=== PATIENT | female | born 1980 | race Caucasian/White ===

== ENCOUNTER 2020-06-22 13:29 | Outpatient (CLI) | payer MEDICARE, MEDICAID, SELFPAY ==
--- NOTE | 2020-06-22 14:30 | MM_ITS ---
WS: [id number] BILATERAL SCREENING DIGITAL MAMMOGRAM WITH CAD HISTORY: breast cancer screening COMPARISON: 08/13/2018 and 01/23/2009 Bilateral CC and MLO views submitted. Computer aided detection analyzed. Breast composition: There are scattered areas of fibroglandular density. No suspicious masses, microc alcifications or architectural distortion. Benign calcifications in each breast. MM/[id number] IMPRESSION: BI-RADS: 2-Benign FOLLOW UP: 1 Year Follow-up
== END 2020-06-22 13:30 | disposition home or self-care (01) ==
LOC: RADSHAW 13:35
PROVIDERS: PCP Nurse Practitioner Family; Visit Provider Nurse Practitioner Women's Health
DX: Z12.31 Encounter for screening mammogram for malignant neoplasm of breast (principal)
CPT/HCPCS: 77067

== ENCOUNTER 2020-10-29 20:00 | Outpatient (CLI) | payer MEDICARE, MEDICAID, SELFPAY | END 2020-10-29 20:01 | disposition home or self-care (01) | LOC: SLEEP 10-30 08:19 | PROVIDERS: PCP Nurse Practitioner Family; Visit Provider Nurse Practitioner Family | DX: G47.33 Obstructive sleep apnea (adult) (pediatric) (principal) | CPT/HCPCS: 95810 ==

== ENCOUNTER 2020-11-30 20:00 | Outpatient (CLI) | payer MEDICARE, MEDICAID, SELFPAY | END 2020-11-30 20:01 | disposition home or self-care (01) | LOC: SLEEP 12-01 08:24 | PROVIDERS: PCP Nurse Practitioner Family; Visit Provider Nurse Practitioner Family | DX: G47.33 Obstructive sleep apnea (adult) (pediatric) (principal) | CPT/HCPCS: 95811 ==

== ENCOUNTER 2021-03-23 16:29 | Outpatient (CLI) | payer MEDICARE, MEDICAID, SELFPAY | END 2021-03-23 16:30 | disposition home or self-care (01) | LOC: LAB 16:40 | PROVIDERS: PCP Family Medicine; Visit Provider Family Medicine | DX: G47.33 Obstructive sleep apnea (adult) (pediatric) (principal); E66.01 Morbid (severe) obesity due to excess calories; E11.42 Type 2 diabetes mellitus with diabetic polyneuropathy; K21.00 Gastro-esophageal reflux disease with esophagitis, without bleeding; E78.00 Pure hypercholesterolemia, unspecified | CPT/HCPCS: 36415; 80053; 80061; 83036; 84443; 85025 ==

== ENCOUNTER → 2021-04-02 12:59 | Outpatient (BNVA) | payer MEDICARE, MEDICAID, SELFPAY | PROVIDERS: PCP Family Medicine; Visit Provider Obstetrics & Gynecology | DX: Z20.822 Contact with and (suspected) exposure to COVID-19 (principal); N81.6 Rectocele; N81.10 Cystocele, unspecified | CPT/HCPCS: 87635 ==

== ENCOUNTER 2021-04-07 12:22 | Observation (INO) | payer MEDICARE, MEDICAID, SELFPAY ==
[2021-04-05 10:57] VITALS: BMI 49.0
[2021-04-05 11:32] LABS: Add Urine Microscopic? NO; Charge for UA Resulting for Rev
[2021-04-05 11:41] LABS: Basophils % 0.4 %; Eosinophils # 0.2 10^3/uL (0.0-0.8); Eosinophils % 1.8 %; Hematocrit 43.2 % (37.0-47.0); Hemoglobin 13.5 g/dL (11.5-15.3); Lymphocytes # 4.3 10^3/uL (0.8-4.8); Lymphocytes % 39.5 %; Mean Corpuscular HGB Conc 31.3 g/dL (30.0-36.0); Mean Corpuscular Hemoglobin 29.5 pg (28.0-34.0); Mean Corpuscular Volume 94.5 fL (81-99); Mean Platelet Volume 10.6 fL (7.4-10.4); Monocytes # 0.6 10^3/uL (0.2-0.9); Monocytes % 5.6 %; Neutrophils # 5.76 10^3/uL (1.8-7.7); Neutrophils % 52.4 %; Nucleated Red Blood Cells % 0 %; Platelet Count 375 10^3/cmm (130-400); Red Blood Count 4.57 10^6/uL (4.1-5.3); Red Cell Distribution Width 13.2 % (12.1-15.1)
--- NOTE | 2021-04-05 12:03 | P.ANESASSM_ITS ---
Pre-Anesthetic Assessment Pre-Anesthetic Assessment: Height/Weight: Height 1.57 m Weight 121.563 kg Preop Diagnosis: Counseled regarding cystocele stage II, rectocele stage III, urinary incont Proposed Procedure: Operation Date: 04/07/21 09:30 Proposed Procedures p Anterior Repair Anterior Colporrhaphy [id number] N81.10 N81.6(Not Applicable) - Ravinder Salazar MD s Posterior Repair Posterior Colporrhaphy(Not Applicable) - Ravinder Salazar MD s Midurethral single incision sling(Not Applicable) - Ravinder Salazar MD s Sacrospinous Ligament fixation(Not Applicable) - Ravinder Salazar MD Was Beta Jaquan taken within 24 hours: N/A Was Clonidine taken within 24 hours: N/A Social: Social History: Tobacco and No alcohol Exam: Pre-Anes Outpt Exam: alert, oriented x 3 and regular rate & rhythm Airway: Submandibular: WNL Cervical ROM: WNL MP: 2 Dentition: False Pulmonary: Pulmonary: COPD and Sleep apnea CV/HEM: CV/HEM: HTN GI: GI: GERD Metabolic: Metabolic: Hyperlipidemia and Morbid obesity Anesthetic Plan: ASA status: 3 Anesthesia: General Risk of > 500 ml blood loss (7ml/kg in children): No PFSH Anesthesia PFSH: Medical History Asthma Chronic constipation COPD (chronic obstructive pulmonary disease) Family history of breast cancer in first degree relative GERD (gastroesophageal reflux disease) Hypercholesteremia Hypertension Menopausal symptoms 2011--started on estradiol by another provider 12/2017--this was my first visit with her and she was on estradiol 1 mg; increase to 1.5 mg 05/02/2019--persistent symptoms--increased estradiol to 2 mg Impression: - Because she is having continued symptoms we will increase her estradiol to 2 mg. We did have a discussion that several of her current health problems and medications could also be contributing to some of her hot flashes and night sweats and we may never get full resolution in her symptoms. We also discussed that there are different estrogen's available and while one-person may not respond to one type of estrogen, they may improve with another type. We will increase her to 2 mg and provide her with a 1 month prescription--staff will call her in 3 weeks for an update and further management pending that discussion. Mixed incontinence Morbid obesity No pertinent past medical history neghx: dvt/pe Type 2 diabetes mellitus Surgical History History of appendectomy (~02/18/10) Hx of section Hx of dilation and curettage of uterus Hx of hysterectomy (~09/22/11) CARLYLE/BSO for irregular menses. [facility] [place] Benign pathology Hx of tonsillectomy Hx of tubal ligation Family History Mother Diabetes Breast cancer uncertain age of dx Father Diabetes Sister Diabetes Uterine cancer Grandmother Hypertension Maternal Hypercholesteremia Maternal Other Heart disease Thyroid disease Denies family history of Colon cancer Ovarian cancer Clotting disorder Bleeding disorder Stroke Social History Smoking and tobacco status: never smoked Second hand smoke exposure: No Alcohol intake: never Desire information about alcohol rehabilitation?: No Desire information about substance/drug rehabilitation?: No Data Anesthesia CBC & Chem 7: 04/05/21 11:26 04/05/21 11:26 Other Labs: Laboratory Results - last 48 hr 04/05/21 11:26 WBC 11.0 H RBC 4.57 Hgb 13.5 Hct 43.2 MCV 94.5 MCH 29.5 MCHC 31.3 RDW 13.2 Plt Count 375 MPV 10.6 H Neut % (Auto) 52.4 Lymph % (Auto) 39.5 Wood % (Auto) 5.6 Eos % (Auto) 1.8 Baso % (Auto) 0.4 Neut # (Auto) 5.76 Lymph # (Auto) 4.3 Wood # (Auto) 0.6 Eos # (Auto) 0.2 Baso # (Auto) 0.0 Nucleated RBC % (auto) 0 Nucleated RBCs # 0.0 Cardiac Studies: No Data to Display
[2021-04-05 12:20] LABS: Alanine Aminotransferase 36 U/L (0-33); Alkaline Phosphatase 101 IU/L (35-105); Anion Gap 17.8 (5-19); Aspartate Amino Transferase 26 U/L (0-32); Blood Urea Nitrogen 10 mg/dL (6-20); Calcium 8.9 mg/dL (8.5-10.5); Carbon Dioxide 24 mmol/L (22-29); Chloride 105 mmol/L (98-107); Glucose 81 mg/dL (65-115); Osmolality Calculated 294 mOsm/kg (285-295); Potassium 3.8 mmol/L (3.5-5.1); Sodium 143 mmol/L (136-145); Total Bilirubin 0.4 mg/dL (0.15-1.2)
[2021-04-05 13:23] LABS: Bilirubin Urine Neg (Negative); Blood Urine Neg (Negative); Glucose Urine UA Norm (Normal); Ketones Urine Negative (Negative); Leukocyte Esterase Urine Negative (Negative); Nitrate Urine Negative (Negative); Protein Urine Neg (Negative); Urine Appearance Clear (CLEAR); Urine Color Yellow (Yellow); Urobilinogen Urine Norm (Negative); pH Urine 6.5 (5-7)
[2021-04-07] VITALS (15 sets, daily range): BP systolic 118–146; BP diastolic 60–91; PULSE 62–93; RESP 14–18; TEMP 36.6–37.1; O2SAT 90–100
[2021-04-07] MEDS: scopolamine 1.5 Patch 1 PATCH TRANSDERMA (08:20)
[2021-04-07] MEDS: sodium chloride 0.9% 500 ML IV (08:35)
--- NOTE | 2021-04-07 08:37 | ANES.PAUD2 ---
Pre-Anesthetic Update Pre-Anesthetic Assessment: Date of Surgery/Procedure: 04/07/21 Preop Diagnosis: Counseled regarding cystocele stage II, rectocele stage III, urinary incont Proposed Procedure: Operation Date: 04/07/21 09:30 Proposed Procedures p Anterior Repair Anterior Colporrhaphy [id number] N81.10 N81.6(Not Applicable) - Ravinder Salazar MD s Posterior Repair Posterior Colporrhaphy(Not Applicable) - Ravinder Salazar MD s Midurethral single incision sling(Not Applicable) - Ravinder Salazar MD s Sacrospinous Ligament fixation(Not Applicable) - Ravinder Salazar MD Any changes to Pre-Anesthetic Assessment?: No Last Intake: Intake Last Liquid Date 04/06/21 Last Liquid Time 19:00 Last Solid Date 04/06/21 Last Solid Time 19:00 Labs Last 48hrs: Laboratory Results - last 48 hr 04/05/21 04/05/21 04/05/21 11:04 11:26 11:26 WBC 11.0 H RBC 4.57 Hgb 13.5 Hct 43.2 MCV 94.5 MCH 29.5 MCHC 31.3 RDW 13.2 Plt Count 375 MPV 10.6 H Neut % (Auto) 52.4 Lymph % (Auto) 39.5 [place] % (Auto) 5.6 Eos % (Auto) 1.8 Baso % (Auto) 0.4 Neut # (Auto) 5.76 Lymph # (Auto) 4.3 [place] # (Auto) 0.6 Eos # (Auto) 0.2 Baso # (Auto) 0.0 Nucleated RBC % (a uto) 0 Nucleated RBCs # 0.0 Sodium Potassium Chloride Carbon Dioxide Anion Gap BUN Creatinine GFR Calculation Glucose Calculated Osmolal ity Calcium Total Bilirubin AST ALT Alkaline Phosphata se Total Protein Albumin Globulin Urine Color Yellow Urine Appearance Clear Urine pH 6.5 Ur Specific Gravit y 1.010 Urine Protein Neg Urine Glucose (UA) Norm Urine Ketones Negative Urine Blood Neg Urine Nitrate Negative Urine Bilirubin Neg Urine Urobilinogen Norm Ur Leukocyte Jen ase Negative Blood Type O Positive Rho(D) Type Positive / 4+ Antibody Screen Negative 04/05/21 11:26 WBC RBC Hgb Hct MCV MCH MCHC RDW Plt Count MPV Neut % (Auto) Lymph % (Auto) [place] % (Auto) Eos % (Auto) Baso % (Auto) Neut # (Auto) Lymph # (Auto) [place] # (Auto) Eos # (Auto) Baso # (Auto) Nucleated RBC % (a uto) Nucleated RBCs # Sodium 143 Potassium 3.8 Chloride 105 Carbon Dioxide 24 Anion Gap 17.8 BUN 10 Creatinine 0.4 L GFR Calculation 175.0 H Glucose 81 Calculated Osmolal ity 294 Calcium 8.9 Total Bilirubin 0.4 AST 26 ALT 36 H Alkaline Phosphata se 101 Total Protein 7.0 Albumin 4.0 Globulin 3.0 Urine Color Urine Appearance Urine pH Ur Specific Gravit y Urine Protein Urine Glucose (UA) Urine Ketones Urine Blood Urine Nitrate Urine Bilirubin Urine Urobilinogen Ur Leukocyte Jen ase Blood Type Rho(D) Type Antibody Screen Vitals: Pulse Rhythm 04/07/21 08:20 Pulse Strength 3+ Normal 04/07/21 08:20 Oxygen Delivery Me thod 04/07/21 08:20 Exam: Pre-Anes Outpt Exam: alert, oriented x 3, clear to auscultation bilaterally and regular rate & rhythm Cardiac Studies: No Data to Display
--- NOTE | 2021-04-07 08:54 | W.PM.OPSUD ---
Surgery/Procedure H&P Update DATE OF PROCEDURE: April 07, 2021 DATE H&P PERFORMED: 04/05/21 H&P UPDATE INFORMATION: I have reviewed H&P completed within last 30 days, I have examined patient prior to procedure and No changes to prior documentation PREOP DIAGNOSIS: Counseled regarding cystocele stage II, rectocele stage III, urinary incont PLANNED PROCEDURE: Operation Date: 04/07/21 09:30 Proposed Procedures p Anterior Repair Anterior Colporrhaphy [id number] N81.10 N81.6(Not Applicable) - Ravinder Salazar MD s Posterior Repair Posterior Colporrhaphy(Not Applicable) - Ravinder Salazar MD s Midurethral single incision sling(Not Applicable) - Ravinder Salazar MD s Sacrospinous Ligament fixation(Not Applicable) - Ravinder Salazar MD
[2021-04-07] MEDS: enoxaparin 30 mg/0.3 mL Syringe SUBCUT (09:00)
[2021-04-07] MEDS: sodium chloride 0.9% 1,000 ML 30 ML IV (09:20)
[2021-04-07] MEDS: vancomycin 1,000 MG in sodium chloride 0.9% 250 ML 250 MG IV (09:25)
[2021-04-07] MEDS: estrogens Conjugated Cream 30 gm 1 APPLIC VAGINAL (09:59)
--- NOTE | 2021-04-07 11:19 | PM.OP ---
Operative Report Date of procedure: April 07, 2021 Pre-op Diagnosis: Counseled regarding cystocele stage II, rectocele stage III, urinary incont Post-op diagnosis: same Procedure Done: Anterior colporrhaphy augmented with allograft Single incision mid urethral sling. Posteriror colporrhapgy Cystoscopy Implants: Altis single incision sling (coloplast) Surgeon: Ravinder Salazar MD Anesthesia: General Estimated blood loss (mL): 800 IV fluids (mL): 700 Urine output (mL): 200 Complications: bleeding Condition: stable Disposition: PACU Procedure: After obtaining informed consent, the patient was taken to the operating room and placed in the supine position, given general anesthesia, and prepped and draped in sterile fashion. The abdomen, vulva and vagina were prepped and draped in a sterile manner. A time out procedure was performed. The anterior vaginal mucosa beneath the midurethra was infiltrated with 0.5% Marcaine with epinephrine. A vertical midline incision was made beneath the midurethra, nearly 1.5 cm length. Careful submucosal dissection was performed bilaterally up to the interior portion of the inferior pubic ramus. The insertion of adductor longus tendon on the patient?s pubic ramus was identified as reference land winifred. Palpated the notch along the internal edge of ischiopubic ramus where the adductor longus tendon and the inferior pubic ramus meet. The Altis single incision sling (SIS) was selected. With thin porcine graft the mesh of the sling was lined anteriorly and posteriorly with the graft. Then the needle of the SIS inserted aiming at the location of this notch. One of the integrated self-fixating tips place onto the needle by sliding it over the end of the needle. The needle/sling assembly was inserted toward the location of identified reference notch making sure that the flat of the handle is perpendicular to the desired path. The needle was tracked along the posterior surface of the ischiopubic ramus until the midline winifred on the mesh is approximately at the midline position under the urethra. The needle was removed and the same was repeated on the contralateral side until the appropriate sling tension under the urethra was achieved ensuring that the mesh lays flat. The needle was removed and vaginal incision was closed in a running interlocking fashion with 2-0 Vicryl. The vaginal mucosa was then injected in the midline with normal saline. The vaginal mucosa was scored in the midline with the Bovie approximately 1 cm medial to the urethral meatus to 1 cm distal to the vaginal cuff. This vaginal mucosa was then undermined and then incised in the midline with the Metzenbaum scissors. The lateral aspects of the vaginal mucosa were then grasped with the Allis clamps and the vaginal mucosa was then dissected off the underlying fascia with the Metzenbaum scissors. Again, there was noted to be quite a bit of oozing at the incision, which was controlled with cautery. After adequate dissection was performed, bilaterally. An ACell MatriStem Pelvic Floor Matrix is modified at time of application to fit spacea, 4 x 4 cm piece . MatriStem PFM placed in front of cystocele ready to be implanted with the Basement Membrane facing the vagina mucosa. Suture is placed at distal end of graft and placed towards vaginal cuff. Final suture is placed on proximal portion of the graft to complete the placement overlying the bladder. Then Interrupted vertical mattress sutures of 0 Vicryl were used to elevate the cystocele superiorly. The excessive vaginal mucosa was then trimmed with the Metzenbaum scissors and the vaginal mucosa was then reapproximated in the running interlocking fashion with 2-0 Vicryl. Posterior colpoperineorrhaphy was performed with Allis clamps to grasp hymenal caruncles to allow 2-3 fingerbreadths caliber; infiltrated with 1% Lidocaine with epinephrine before triangular incision to excise fibrotic subdermal rectovaginal tissue from old perineal laceration. Fascia dissected off towards vaginal cuff and deemed weakened and thinned-out in midline; colporrhaphy performed with interrupted mattress 0-Vicryl sutures towards perineal body after a separate crown stitch with 0-Vicryl performed. The patient was given IV indigo carmine. The field irrigated; hemostasis secured before vaginal incision closed running-locked with 3-0 Vicryl. Then the Hale catheter was removed and cystoscope was inserted. The bladder was filled with sterile water. Complete evaluation of the bladder mucosa was performed noting no lacerations, dimpling, tears, bleeding of the mucosa or muscular layers. Both ureteral orifices were identified. Prompt excretion of urine from both ureteral orifices was noted. Cystoscope was withdrawn. The Hale catheter was replaced. Excellent hemostasis was obtained. Premarin-soaked vaginal pack left in placed overnight as postoperative support for the vaginal tissues after graft placement and closure of vaginal incisions. Sponge, lap, needle, and instrument counts were correct times three. The patient was taken to the recovery room, awake and in stable condition. This documentation was created by [employer] business project manager software (known for inherent business project manager error). Every effort was made to assure accuracy of business project manager. Any obvious errors or omissions should be clarified with the author of the document.
[2021-04-07] MEDS: ketorolac 30 mg/mL INJ IVP ×2 (13:03→18:25)
[2021-04-07] MEDS: dextrose 5%-lactated ringers 1,000 ML 125 ML IV ×2 (13:03→21:49)
[2021-04-07] MEDS: HYDROcodone-acetaminophen 5-325 mg Tablet PO (13:04)
--- NOTE | 2021-04-07 15:38 | ANE.PACU2 ---
Inpatient post-anesthesia follow up: Airway intact: Yes Vital signs: Temperature 97.8 F Pulse Rate 67 Respiratory Rate 16 Blood Pressure 124/85 Pulse Oximetry 97 Oxygen Delivery Me thod Room Air Oxygen Flow Rate 6 Fraction of Inspir ed Oxygen Hydration adequate: Yes Nausea and vomiting: No Pain level: 2 Mental status: Baseline
--- NOTE | 2021-04-07 16:50 | PC.NURSE ---
Nurse entered room to draw hemagram. Upon entering the room, patient was making eye contact with nurse. Nurse explained that her doctor has ordered a blood draw to check her levels since the surgery. She nodded. When this nurse got around the other side of the bed, the patient had dozed back off. Nurse went to remove the blood pressure cuff, patient jumped and made a fist and swung it towards the nurse, but did not make contact. Nurse apologized for startling the patient and the patient yelled that the nurse snuck up on her, that she is hard of hearing and reads lips. Nurse again apologized for startling her and again explained the blood draw and reasoning for it.
[2021-04-07 17:25] LABS: Hematocrit 37.4 % (37.0-47.0); Hemoglobin 11.9 g/dL (11.5-15.3); Mean Corpuscular HGB Conc 31.8 g/dL (30.0-36.0); Mean Corpuscular Hemoglobin 29.8 pg (28.0-34.0); Mean Corpuscular Volume 93.7 fL (81-99); Mean Platelet Volume 10.9 fL (7.4-10.4); Platelet Count 305 10^3/cmm (130-400); Red Blood Count 3.99 10^6/uL (4.1-5.3); Red Cell Distribution Width 13.1 % (12.1-15.1); White Blood Count 19.4 10^3/uL (4.0-10.0)
[2021-04-07] MEDS: docusate sodium 100 mg Capsule PO (18:04)
[2021-04-07] MEDS: ferrous sulfate EC 325 mg Tablet PO (18:05)
--- NOTE | 2021-04-07 18:10 | PC.NURSE ---
Nurse was in room, pt stated her mother wanted to speak to the nurse. Pt handed her phone to this nurse with pt's mother on FaceTime. Pt's mother asked if we have a way for the pt to charge her phone. Nurse asked if pt has a public health staff nurse. Pt stated that her public health staff nurse wont reach the bed from the plug ins. Nurse pointed out all the plugins that are closest to the bed. Pt's visitor said he would plug the public health staff nurse in. Then pt's mother asked why her daughter is bleeding so badly. Nurse stated that some bleeding is expected after this type of surgery and nurse is preparing to reassess bleeding and change her pads.
--- NOTE | 2021-04-07 19:00 | PC.NURSE ---
Mother of the patient called while this nurse was in the room doing bedside shift report. Mother requested to speak to the RN. This nurse spoke to mother on the phone and stated I would call her back after I received report on my other patients. This nurse called the mother back and the mother stated Suni has had 2 different surgeries today, has had so many complaints. What kind of staff do you have there? I am in [place] and I will come down there. What is their proble? This nurse stated to the mother I am just coming onto shift at this time, and I cannot attest for the care the pt has received before this shift. I can attest the nurses up here are very good at their jobs and good at what they do. The mother stated The nurses have only checked on her a couple of times since she has been up there and my daughter is hurting and wants pain medication. The nurse came in and said 'it will be 10 minutes before you can have anything.' This nurse stated to the mother As nurses, we are not in control of the orders written by the doctors and we can only carry out what is written as orders for us to follow. As for her being in pain, when she rates her pain 10 out of 10 and she is sleeping, it is hard for the nursing staff to give more pain medication because when the pt is sleeping her pain cannot be 10 out of 10. The mother stated Ok i can explain that to her better. So she told the nurse her IV was hurting and wet and the nurse said that it was because she was not watching what she was doing and it would be fine. This nurse reported IV would be assessed. The mother stated she is also having extremely heavy bleeding. So much that her checked and there was blood everywhere. This nurse reported to the mother in report 2 spots of bleeding was noted on the pad approximately the size of a golf ball and one on the chux approximately the size of an orange and this is normal bleeding. A blood draw was performed this afternoon and the doctor is aware of the results and the results still say she is in normal range. 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 This nurse stated it would be looked in to.
--- NOTE | 2021-04-07 19:06 | PC.NURSE ---
vaginal bleeding Pt stated she feels like she is having heavy vaginal bleeding. Erica pad changed and 2 golf ball sized areas of blood noted on erica pad, area of blood on chux pad approximately the size of an orange. Pad had not been changed since pt arrived to the floor. Pt reassured that this amount of vaginal bleeding is an expected finding after this type of surgery.
--- NOTE | 2021-04-07 20:18 | PC.NURSE ---
This nurse entered pt's room after ambulating 1 round around the ob floor. The pt was in the chair when this nurse entered the room. The pt stated she was very tired and weak after the walk. This nurse asked the pt if she thought she could get up to the bathroom to change her erica pad. The pt stated yes. This nurse assisted pt up and when entering the bathroom door way pt started getting weak and knees were buckling. This nurse stated for pt to sit on the toilet. Pt did not respond. This nurse stepped forward and pulled the emergency light. This nurse again stated to pt to step forward to the toilet. The pt made 1 attempt to step toward toilet and this nurse held pt up from falling. Uri Driver RN entered room and assisted pt to toilet. Pt sat on toilet for about 10 seconds and stated that has never happened to me before. Can I have something to eat? This nurse stated we would discuss that when pt is back to bed. Pt verbalized understanding. Erica pad replaced and pt assisted up from toilet x2 nurses. Pt ambulating back to bed and at door way pt became weak again and stated i'm going to pass out. This nurse instructed the visitors to bring the recliner closer to the pt. When the visitor was moving the recliner, the pt began to step forward toward recliner. This nurse stated for pt to sit in the chair. Pt asked which way? this nurse stated i don't care just sit down. Pt was feeling better after sitting.
[2021-04-08] MEDS: ketorolac 30 mg/mL INJ IVP (00:30)
[2021-04-08 05:38] VITALS: BP 121/78; PULSE 82; RESP 16; TEMP 36.6
[2021-04-08 05:39] LABS: Hematocrit 37.6 % (37.0-47.0); Hemoglobin 12.1 g/dL (11.5-15.3); Mean Corpuscular HGB Conc 32.2 g/dL (30.0-36.0); Mean Corpuscular Hemoglobin 30.2 pg (28.0-34.0); Mean Corpuscular Volume 93.8 fL (81-99); Platelet Count 329 10^3/cmm (130-400); Red Blood Count 4.01 10^6/uL (4.1-5.3); Red Cell Distribution Width 13.2 % (12.1-15.1); White Blood Count 18.6 10^3/uL (4.0-10.0)
[2021-04-08] MEDS: atorvastatin 40 mg Tablet 20 MG PO (08:49)
[2021-04-08] MEDS: HYDROcodone-acetaminophen 5-325 mg Tablet PO (08:49)
[2021-04-08] MEDS: ibuprofen 800 mg tablet PO (08:50)
[2021-04-08] MEDS: pantoprazole DR 40 mg Tablet PO (08:50)
[2021-04-08] MEDS: ferrous sulfate EC 325 mg Tablet PO (08:50)
[2021-04-08] MEDS: multivitamin therapeutic Tablet 1 TAB PO (08:50)
[2021-04-08] MEDS: docusate sodium 100 mg Capsule PO (08:50)
--- NOTE | 2021-04-08 08:52 | PM.OBGYDC ---
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 Donaldson admitted for planned anterior colporrhaphy augmented with allograft, posterior colporrhaphy and single incision mid urethral sling and sacrospinous fixation. Procedures were performed with all complication. Sacrospinous fixation was not needed. Postoperative day 1 she is afebrile and hemodynamically stable. Tolerating diet well. Ambulating without difficulty. PVR was greater than 150 mL. Will be discharged home with a Hale catheter and instructed to return to the clinic on Monday to discontinue the catheter. Physical Exam Narrative: EXAM NARRATIVE: GA: Alert and oriented ?3. HEENT: WNL. Heart: Regular rate and rhythm. Lungs: Clear to auscultation bilaterally. 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 Extremities: No edema, no cyanosis, no calves pain. Urinary Catheter Management^: Hale: Cath Placed During This Visit: yes Urinary Catheter Date of Insertion: 04/07/21 Urinary Catheter Time of Insertion: 09:48 Discharge Data Data Completed and Pending: Labs from last 24 hours 04/08/21 04/07/21 05:10 17:10 WBC 18.6 H 19.4 H RBC 4.01 L 3.99 L Hgb 12.1 11.9 Hct 37.6 37.4 MCV 93.8 93.7 MCH 30.2 29.8 MCHC 32.2 31.8 RDW 13.2 13.1 Plt Count 329 305 MPV 11.0 H 10.9 H Vitals: Last Vital Signs Temp 97.9 F 04/08/21 05:38 Pulse 82 04/08/21 05:38 Resp 16 04/08/21 05:38 BP 121/78 04/08/21 05:38 Pulse Ox 96 04/07/21 21:35 Discharge Plan Discharge Patient Disposition: Home Condition: Stable Prescriptions: New ibuprofen 800 mg tablet 800 mg PO TID PRN (Reason: pain) Qty: 60 RF: 0 acetaminophen 325 mg capsule 325 mg PO Q4H PRN (Reason: fever or pain) Qty: 60 RF: 0 Continued duloxetine [Cymbalta] 30 mg capsule,delayed release(DR/EC) 30 mg PO DAILY RF: 0 Dexilant 60 mg capsule,biphase delayed releas 60 mg PO DAILY RF: 0 atorvastatin 10 mg tablet 10 mg PO DAILY RF: 0 lisinopril 2.5 mg tablet 2.5 mg PO DAILY RF: 0 cholecalciferol (vitamin D3) 25 mcg (1,000 unit) capsule 25 mcg PO DAILY RF: 0 estradiol 2 mg tablet 2 mg PO DAILY Qty: 90 RF: 3 ferrous sulfate 325 mg (65 mg iron) tablet 325 mg PO BID RF: 0 ascorbic acid (vitamin C) 500 mg capsule 500 mg PO DAILY RF: 0 docusate sodium 100 mg capsule 200 mg PO BID RF: 0 fexofenadine [Allergy Relief (fexofenadine)] 180 mg tablet 180 mg PO DAILY RF: 0 evening primrose oil 500 mg capsule 1,000 mg PO DAILY RF: 0 multivitamin [One Daily Multivitamin] Tablet 1 tab PO DAILY RF: 0 Discharge Orders: Discharge Order (Routine); Ordered 04/08/21 Ordered By: Ravinder Salazar Referrals: Ravinder Salazar MD [Physician] - 04/20/21 12:45 pm (Your 2 week incision check is scheduled for 04/20/21 @12:45. Your 6 week post-op appointment is scheduled for 05/18/21 @1:15.) Discharge Diet: Soft Mechanical Discharge Activity: Increase activity as tolerated Patient Instructions: Anterior Vaginal Repair (DC), Bladder Sling Procedures (DC), Posterior Vaginal Repair (DC), OB Discharge Report, OB Food/Drug Interaction Guide, Opioid Safety Activity Restrictions/Additional Instructions: 1. Please call [facility] on next working day to make your post-operative appointment in 2 weeks and to follow-up Monday to discontinue Hale catheter. 2. Please stay home until you come back to the clinic on first post-operative check up. 3. Please follow instructions on your medications CAREFULLY. 4. If you have abdominal incision, do not cover it unless dressing is necessary because of drainage. OK to shower, but avoid bath. Leave steri-strips until they fall off. If they are still on one week after surgery, you may remove them. 5. If you had vaginal surgery or vaginal repair, Dr. Salazar may instruct you to take SITZ bath. 6. Yellow, blood tinged odorous vaginal discharge is usually normal after hysterectomy or vaginal surgeries. 7. No sexual intercourse, tampons, or douches until you are completely released from the post-operative care. 8. Avoid constipation by eating right and maybe using some Metamucil or Milk of Magnesia. 9. All prescription refills are given during the working hours. Please do no wait till it runs out. Call the clinic at [phone] before your medication runs out. The clinic will get in touch with your doctor to prescribe medications if necessary. 10. Please remain within 40 mile radius from our hospital because emergencies do happen now and then during the post-operative period. 11. If you have stairs at home, take one step at a time slowly and minimize the number of trips. It helps to stay in one floor for the next few days. No lifting except what you can lift by one hand until you are released from the post-operative care. 12. Driving is discouraged until you are well healed. It may be 3-4 weeks before you feel strong enough to drive. You should be able to turn and look through the rear window without pain and you should be able to push the brake pedal very hard without pain before you drive. No fast rules, but SAFETY should be your primary concern. DO NOT drive if you are on sedating medications such as narcotics. 13. Call the clinic (during working hours) to make urgent appointment or go to the Emergency room, if any of the following occurs: i. Vaginal bleeding becomes heavy, more than a period. ii. Incision becomes red and sore, or drains pus. iii. Your temperature is over 100.4 or you have chill. iv. IV site becomes red and swollen (a little ``knot?? is usually OK) v. Persistent nausea and vomiting vi. Persistent constipation or diarrhea vii. Rash or allergic reaction to medications. 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
[2021-04-08 08:54] VITALS: BP 136/73; PULSE 82; RESP 16; TEMP 36.9
[2021-04-08] MEDS: fexofenadine 60 mg Tablet 180 MG PO (12:41)
[2021-04-08] MEDS: ascorbic acid 500 mg Tablet PO (12:42)
[2021-04-08] MEDS: duloxetine 30 mg Capsule PO (12:42)
[2021-04-08] MEDS: estradiol 1 mg Tablet 2 MG PO (12:42)
[2021-04-08] MEDS: cholecalciferol (vitamin D3) 1,000 unit Tablet 1000 UNIT PO (12:43)
[2021-04-08] MEDS: lisinopril 2.5 mg Tablet PO (12:43)
[2021-04-08 12:47] VITALS: BP 126/85; PULSE 86; RESP 16; TEMP 36.9
--- NOTE | 2021-04-12 16:20 | PC.RESP ---
PULMONARY REHAB INFORMATION SENT TO PATIENT.
== END 2021-04-08 13:00 | disposition home or self-care (01) ==
LOC: OBGYN 12:40
PROVIDERS: Admitting Provider Obstetrics & Gynecology; PCP Family Medicine; Visit Provider Obstetrics & Gynecology
PROC: 0JQC0ZZ Repair Pelvic Region Subcutaneous Tissue and Fascia, Open Approach (ICD-10-PCS; CPT 57240; principal; 2021-04-07 09:20)
PROC: (CPT 57250; 2021-04-07 09:20)
PROC: (CPT 57288; 2021-04-07 09:20)
PROC: 0TJB8ZZ Inspection of Bladder, Via Natural or Artificial Opening Endoscopic (ICD-10-PCS; CPT 52000; 2021-04-07 09:20)
DX: N81.10 Cystocele, unspecified (principal); N81.6 Rectocele; N39.46 Mixed incontinence; J44.9 Chronic obstructive pulmonary disease, unspecified; G47.30 Sleep apnea, unspecified; I10 Essential (primary) hypertension; E78.5 Hyperlipidemia, unspecified; E66.01 Morbid (severe) obesity due to excess calories; Z68.42 Body mass index [BMI] 45.0-49.9, adult; E78.00 Pure hypercholesterolemia, unspecified; E11.9 Type 2 diabetes mellitus without complications; Z82.49 Family history of ischemic heart disease and other diseases of the circulatory system; Z83.3 Family history of diabetes mellitus
CPT/HCPCS: 57260; 57288; 36415; 51702; 51798; 80053; 81003; 85025; 85027; 86850; 86900; 96365; 96372; 96374; C1713; C1762; G0378; J1100; J1650; J1885; J2405; J2704; J2710; J3010; J3370; J3490; J7030; J7040; J7050; J8499

== ENCOUNTER → 2021-04-19 14:16 | Outpatient (BNVA) | payer MEDICARE, MEDICAID, SELFPAY | PROVIDERS: PCP Family Medicine; Visit Provider Family Medicine | DX: R53.83 Other fatigue (principal) | CPT/HCPCS: 85025 ==

== ENCOUNTER → 2021-12-07 00:01 | Outpatient (BNVA) | payer MEDICARE, MEDICAID, SELFPAY | PROVIDERS: PCP Family Medicine; Visit Provider Family Medicine | DX: E11.42 Type 2 diabetes mellitus with diabetic polyneuropathy (principal); I10 Essential (primary) hypertension | CPT/HCPCS: 80048; 83036; 85025 ==

== ENCOUNTER 2022-02-04 16:39 | Emergency (ER) | payer MEDICARE, MEDICAID, SELFPAY ==
[2022-02-04 17:24] VITALS: BP 141/88; PULSE 94; RESP 16; TEMP 36.7; O2SAT 98; BMI 48.1
--- NOTE | 2022-02-04 19:06 | PC.NURSE ---
184 Patient awaiting room assignment and in WR, just outside triage. Reportadly having Seizure. Boyfriend and bung driver both around her. She is shaking in pronounced manner not consistent with Grand mal, and is continent with episode lasting less that 30 seconds. This is the same activity reported by family earlier today. 1899 patient assisted to room 1, seizure pads applied to bed for safety, patient had another episode with fluttering eyelids noted and lasting less than 30 seconds. No injury occurred with either spell. Oncoming nurse updated on both of these episodes
--- NOTE | 2022-02-04 19:09 | W.ED.SEIZURE ---
HPI - Seizure General: Chief Complaint: Seizure Stated Complaint: seizures Time Seen by Provider: 02/04/22 19:09 History of Present Illness: HPI Narrative: 41-year-old female seizure-like activity. Male significant other in the room reports that she had significant shaking today about 6 different times. Patient can recall the events. No incontinence was reported. Patient had previous episode about 2 weeks ago. Patient been in the waiting room about 2-1/2 hours prior to evaluation. Patient was sitting in the wheelchair during this time and looked in no distress or had any problems. At this time patient asked like she is sleepy and is very slow to respond to questions. When talking with her spouse patient does alert only responds to questions quickly. Associated symptoms: Deny chest pain Review of Systems General: Reports: 10 or more systems reviewed and unremarkable except in HPI and below Card: Denies: chest pain Resp: Denies: dyspnea GI: Denies: abdominal pain Musc: Denies: neck pain Skin/Breast: Denies: rash Neuro: Reports: seizure-like activity Psych: Reports: anxiety PFSH ED PFSH: Medical History (Updated 02/04/22 @ 20:40 by BING Rivers) Asthma Chronic constipation COPD (chronic obstructive pulmonary disease) Family history of breast cancer in first degree relative GERD (gastroesophageal reflux disease) Hypercholesteremia Hypertension Menopausal symptoms 2011--started on estradiol by another provider 12/2017--this was my first visit with her and she was on estradiol 1 mg; increase to 1.5 mg 05/02/2019--persistent symptoms--increased estradiol to 2 mg Impression: - Because she is having continued symptoms we will increase her estradiol to 2 mg. We did have a discussion that several of her current health problems and medications could also be contributing to some of her hot flashes and night sweats and we may never get full resolution in her symptoms. We also discussed that there are different estrogen's available and while one-person may not respond to one type of estrogen, they may improve with another type. We will increase her to 2 mg and provide her with a 1 month prescription--staff will call her in 3 weeks for an update and further management pending that discussion. Mixed incontinence Morbid obesity No pertinent past medical history neghx: dvt/pe Type 2 diabetes mellitus Surgical History (Updated 04/20/21 @ 13:20 by Jacki Traore LPN) History of appendectomy (~02/18/10) Hx of section Hx of dilation and curettage of uterus Hx of hysterectomy (~09/22/11) CAR[facility]LE[facility] irregular menses[facility] Benign pathology Hx of tonsillectomy Hx of tubal ligation Family History Mother Diabetes Breast cancer uncertain age of dx Father Diabetes Sister Diabetes Uterine cancer Grandmother Hypertension Maternal Hypercholesteremia Maternal Other Heart disease Thyroid disease Denies family history of Colon cancer Ovarian cancer Clotting disorder Bleeding disorder Stroke Social History (Updated 12/07/21 @ 10:48 by Eben Snyder LPN) Smoking and tobacco status: never smoked Second hand smoke exposure: No Alcohol intake: never Desire information about alcohol rehabilitation?: No Desire information about substance/drug rehabilitation?: No Physical Exam Const: COMMON NORMALS: alert HENMT: COMMON NORMALS: normocephalic HEAD & SCALP: normocephalic Neck/C-Spine: COMMON NORMALS: full ROM and no meningeal signs Resp: COMMON NORMALS: normal respiratory effort and clear to auscultation bilaterally AUSCULTATION: clear to auscultation bilaterally Cardio: COMMON NORMALS: regular rate and regular rhythm RATE: regular rate RHYTHM: regular rhythm GI: COMMON NORMALS: Soft to palpation and non-tender PALPATION: Yes Soft to palpation Extremity: COMMON NORMALS: normal to inspection and full ROM Neuro: ANANTH COMA SCALE: document GCS findings Ananth coma scale eye opening: Spontaneous [place] coma scale verbal response: Orientated Ananth coma scale motor response: Obey commands Ananth coma scale total score: 15 SENSORIUM/ORIENTATION: Yes alert MENINGEAL SIGNS: Yes no meningeal signs SPEECH: speech normal Skin: COMMON NORMALS: no rashes or lesions noted GENERAL SKIN EXAM: no rashes or lesions noted Course Vital Signs: Vital signs: Vital Signs Temperature 98.0 F 02/04/22 17:24 Pulse Rate 85 02/04/22 20:22 Respiratory Rate 14 02/04/22 20:22 Blood Pressure 140/86 02/04/22 20:22 Pulse Oximetry 95 02/04/22 20:22 MDM - Seizure MDM Narrative Medical decision making narrative: 41-year-old female comes in today with possible seizure-like activity. Male significant other states that when she becomes under stress she has these episodes of shaking and carrying on. Over the last 2 weeks she is had more frequent episodes but she has been under more stress. On exam patient responds appropriately to question but seems to avoid talking with the provider at this time. Vital signs are normal. No focal neural deficits are noted. Laboratory values were unremarkable. Differential diagnosis includes nonepileptic seizures, epilepsy, anxiety. Patient was given 2 mg of Ativan IV push. CT of the head was unremarkable. We will recommend follow-up with neurology for further evaluation. Patient was written for some Ativan to use 1 tablet twice a day as needed for seizure-like activity. Patient and male significant other reported understanding of care plan and need for follow-up or return to the ER. Lab Data Result diagrams: 02/04/22 19:45 02/04/22 19:45 Labs: Radiology Impressions Head CT 02/04/22 19:10 IMPRESSION: 1. No acute abnormality of the brain. 2. Incidental/nonacute findings are listed in the report. Laboratory Results WBC 11.4 10^3/uL (4.0-10.0) H 02/04/22 19:45 RBC 4.29 10^6/uL (4.1-5.3) 02/04/22 19:45 Hgb 12.8 g/dL (11.5-15.3) 02/04/22 19:45 Hct 39.5 % (37.0-47.0) 02/04/22 19:45 MCV 92.1 fl (81-99) 02/04/22 19:45 MCH 29.8 pg (28.0-34.0) 02/04/22 19:45 MCHC 32.4 g/dL (30.0-36.0) 02/04/22 19:45 RDW 13.1 % (12.1-15.1) 02/04/22 19:45 Plt Count 354 10^3/cmm (130-400) 02/04/22 19:45 MPV 10.7 fL (7.4-10.4) H 02/04/22 19:45 Neut % (Auto) 60.6 % 02/04/22 19:45 Lymph % (Auto) 31.3 % 02/04/22 19:45 Miner % (Auto) 6.1 % 02/04/22 19:45 Eos % (Auto) 1.2 % 02/04/22 19:45 Baso % (Auto) 0.5 % 02/04/22 19:45 Neut # (Auto) 6.90 10^3/uL (1.8-7.7) 02/04/22 19:45 Lymph # (Auto) 3.6 10^3/uL (0.8-4.8) 02/04/22 19:45 Miner # (Auto) 0.7 10^3/uL (0.2-0.9) 02/04/22 19:45 Eos # (Auto) 0.1 10^3/uL (0.0-0.8) 02/04/22 19:45 Baso # (Auto) 0.1 10^3/uL (0.0-0.1) 02/04/22 19:45 Nucleated RBC % (auto) 0 % 02/04/22 19:45 Nucleated RBCs # 0.0 /100WBC 02/04/22 19:45 Sodium 138 mmol/L (136-145) 02/04/22 19:45 Potassium 3.7 mmol/L (3.5-5.1) 02/04/22 19:45 Chloride 104 mmol/L (98-107) 02/04/22 19:45 Carbon Dioxide 26 mmol/L (22-29) 02/04/22 19:45 Anion Gap 11.7 (5-19) 02/04/22 19:45 BUN 8 mg/dL (6-20) 02/04/22 19:45 Creatinine 0.6 mg/dL (0.5-0.9) 02/04/22 19:45 GFR Calculation 109.1 mL/min (90-130) 02/04/22 19:45 Glucose 136 mg/dL (65-115) H 02/04/22 19:45 Calculated Osmolality 286 mOsm/kg (285-295) 02/04/22 19:45 Calcium 9.0 mg/dL (8.5-10.5) 02/04/22 19:45 Total Bilirubin 0.2 mg/dL (0.15-1.2) 02/04/22 19:45 AST 27 U/L (0-32) 02/04/22 19:45 ALT 35 U/L (0-33) H 02/04/22 19:45 Alkaline Phosphatase 106 IU/L (35-105) H 02/04/22 19:45 Total Protein 6.9 g/dL (6.6-8.7) 02/04/22 19:45 Albumin 3.9 g/dL (3.5-5.2) 02/04/22 19:45 Globulin 3.0 g/dL (1.3-4.6) 02/04/22 19:45 Urine Color Yellow (Yellow) 02/04/22 19:11 Urine Appearance Turbid (CLEAR) 02/04/22 19:11 Urine pH 5 (5-7) 02/04/22 19:11 Ur Specific [place] 1.020 (1.005-1.030) 02/04/22 19:11 Urine Protein Neg (Negative) 02/04/22 19:11 Urine Glucose (UA) Norm (Normal) 02/04/22 19:11 Urine Ketones Negative (Negative) 02/04/22 19:11 Urine Blood Neg (Negative) 02/04/22 19:11 Urine Nitrate Negative (Negative) 02/04/22 19:11 Urine Bilirubin Neg (Negative) 02/04/22 19:11 Urine Urobilinogen 1 mg/dL (Negative) H 02/04/22 19:11 Ur Leukocyte Esterase Negative (Negative) 02/04/22 19:11 Discharge Plan Discharge Patient Disposition: Home Clinical Impression: Witnessed seizure-like activity Condition: Stable Prescriptions: New lorazepam 1 mg tablet 1 mg PO BID PRN (Reason: seizure activity) Qty: 10 0RF No Action cholecalciferol (vitamin D3) 25 mcg (1,000 unit) capsule 25 mcg PO DAILY 0RF ascorbic acid (vitamin C) 500 mg capsule 500 mg PO DAILY 0RF docusate sodium 100 mg capsule 200 mg PO BID 0RF fexofenadine [Allergy Relief (fexofenadine)] 180 mg tablet 180 mg PO DAILY 0RF evening primrose oil 500 mg capsule 1,000 mg PO DAILY 0RF Rx Instructions: give with meal/snack multivitamin [One Daily Multivitamin] Tablet 1 tab PO DAILY 0RF ferrous sulfate 325 mg (65 mg iron) tablet 325 mg PO BID Qty: 60 2RF duloxetine 60 mg capsule,delayed release(DR/EC) 60 mg PO DAILY Qty: 30 2RF atorvastatin 10 mg tablet 10 mg PO DAILY Qty: 90 1RF Dexilant 60 mg capsule,biphase delayed releas 60 mg PO DAILY Qty: 90 1RF estradiol 2 mg tablet 2 mg PO DAILY Qty: 30 0RF lisinopril 2.5 mg tablet 2.5 mg PO DAILY Qty: 90 1RF ibuprofen 800 mg tablet 800 mg PO TID PRN (Reason: pain) Qty: 60 0RF acetaminophen 325 mg capsule 325 mg PO Q4H PRN (Reason: fever or pain) Qty: 60 0RF Discharge Orders: Discharge ED (Routine); Ordered 02/04/22 Ordered By: Enio Hernández Referrals: Michael Parker, [Primary Care Provider] - Discharge Diet: Usual diet Discharge Activity: Increase activity as tolerated Patient Instructions: Nonepileptic Seizures (ED) Activity Restrictions/Additional Instructions: Avoid undue stress. Make sure to get plenty of sleep. Activity as tolerated. Use of lorazepam 1 mg as needed for seizure activity. Follow-up with neurologist for further evaluation. Return to ER for new concerns. Coding Level of Care Code ED Research Statistician for Onelg Fwd Exam Comprehensive
--- NOTE | 2022-02-04 19:10 | CTR_ITS ---
PROCEDURE INFORMATION: Exam: CT Head Without Contrast Exam date and time: 02/04/2022 7:55 PM Age: 41 years old Clinical indication: Other: Seizure activity; Patient HX: Patient states multiple seizures today. TECHNIQUE: Imaging protocol: Computed tomography of the head without contrast. Sagittal and coronal reformatted images were created and reviewed. Radiation optimization: All CT scans at this facility use at least one of these dose optimization techniques: automated exposure control; mA and/or kV adjustment per patient size (includes targeted exams where dose is matched to clinical indication); or iterative reconstruction. COMPARISON: No relevant prior studies available. RADIATION DOSE METRICS: Total DLP (mGy-cm): 835.63 FINDINGS: Brain: No acute intracranial hemorrhage. No acute infarct. No intra-axial or extra-axial masses. Harmon-white matter differentiation is preserved. No cerebral edema. No extra-axial fluid collections. No midline shift. No evidence for Chiari 1 malformation. Cerebral ventricles: No hydrocephalus. Paranasal sinuses: Visualized paranasal sinuses are clear. Mastoid air cells: Visualized mastoid air cells are clear. Bones/joints: No acute fracture. Soft tissues: No acute abnormality of the extracranial soft tissues. Other findings: No acute abnormality in the visualized orbits. Patient has bilateral hearing aids. CT/CT head wo con* [id number] IMPRESSION: 1. No acute abnormality of the brain. 2. Incidental/nonacute findings are listed in the report.
[2022-02-04 19:41] LABS: Add Urine Microscopic? NO; Charge for UA Resulting for Rev
[2022-02-04 19:48] LABS: Bilirubin Urine Neg (Negative); Blood Urine Neg (Negative); Glucose Urine UA Norm (Normal); Ketones Urine Negative (Negative); Leukocyte Esterase Urine Negative (Negative); Nitrate Urine Negative (Negative); Protein Urine Neg (Negative); Urine Appearance Turbid (CLEAR); Urine Color Yellow (Yellow); Urobilinogen Urine 1 mg/dL (Negative); pH Urine 5 (5-7)
[2022-02-04 19:50] LABS: Basophils # 0.1 10^3/uL (0.0-0.1); Basophils % 0.5 %; Eosinophils # 0.1 10^3/uL (0.0-0.8); Eosinophils % 1.2 %; Hematocrit 39.5 % (37.0-47.0); Hemoglobin 12.8 g/dL (11.5-15.3); Lymphocytes # 3.6 10^3/uL (0.8-4.8); Lymphocytes % 31.3 %; Mean Corpuscular HGB Conc 32.4 g/dL (30.0-36.0); Mean Corpuscular Hemoglobin 29.8 pg (28.0-34.0); Mean Corpuscular Volume 92.1 fl (81-99); Mean Platelet Volume 10.7 fL (7.4-10.4); Monocytes # 0.7 10^3/uL (0.2-0.9); Monocytes % 6.1 %; Neutrophils % 60.6 %; Nucleated Red Blood Cells % 0 %; Platelet Count 354 10^3/cmm (130-400); Red Blood Count 4.29 10^6/uL (4.1-5.3); Red Cell Distribution Width 13.1 % (12.1-15.1); White Blood Count 11.4 10^3/uL (4.0-10.0)
[2022-02-04 20:11] LABS: Alanine Aminotransferase 35 U/L (0-33); Albumin Level 3.9 g/dL (3.5-5.2); Alkaline Phosphatase 106 IU/L (35-105); Anion Gap 11.7 (5-19); Aspartate Amino Transferase 27 U/L (0-32); Blood Urea Nitrogen 8 mg/dL (6-20); Carbon Dioxide 26 mmol/L (22-29); Chloride 104 mmol/L (98-107); Creatinine Clr Calc Pharmacy 148.4444; Glomerular Filtration Rate 109.1 mL/min (90-130); Glucose 136 mg/dL (65-115); Osmolality Calculated 286 mOsm/kg (285-295); Potassium 3.7 mmol/L (3.5-5.1); Sodium 138 mmol/L (136-145); Total Bilirubin 0.2 mg/dL (0.15-1.2); Total Protein 6.9 g/dL (6.6-8.7)
[2022-02-04 20:22] VITALS: BP 140/86; PULSE 85; RESP 14; O2SAT 95
[2022-02-04] MEDS: LORazepam 2 mg/mL INJ 1 mL IVP (20:23)
[2022-02-04 20:30] VITALS: BP 134/80; PULSE 84; RESP 22; O2SAT 97
[2022-02-04 21:12] VITALS: BP 140/93; PULSE 108; RESP 18; O2SAT 96
--- NOTE | 2022-02-07 11:26 | DCPLANNER ---
Addendum entered by Nya Mckenzie 04/20/22 11:44: Patient had a follow up appointment scheduled for 03.16.22 with neurology - patient did attend appointment. Addendum entered by Nya Mckenzie 02/13/22 04:37: Patient has a follow up appointment scheduled for Wednesday March 16, 2022 at 10:[address] Bermudez. Clinic will call patient with appointment information. Original Note: product design manager had message to schedule a follow up appointment for patient with neurology. product design manager sent patients information to the front office staff at neurology. Patients information will be printed and reviewed. Clinic will call patient with appointment information.
== END 2022-02-04 20:45 | disposition home or self-care (01) ==
PROVIDERS: Emergency Provider Nurse Practitioner Family; PCP Family Medicine
DX: R56.9 Unspecified convulsions (principal); J44.9 Chronic obstructive pulmonary disease, unspecified; I10 Essential (primary) hypertension; E78.00 Pure hypercholesterolemia, unspecified; E11.9 Type 2 diabetes mellitus without complications; E66.01 Morbid (severe) obesity due to excess calories; Z68.42 Body mass index [BMI] 45.0-49.9, adult
CPT/HCPCS: 70450; 80053; 81003; 85025; 96374; 99283; J2060

== ENCOUNTER 2022-02-07 16:46 | Emergency (ER) | payer MEDICARE, MEDICAID, SELFPAY ==
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
[2022-02-07 16:52] VITALS: BP 139/83; PULSE 90; RESP 13; TEMP 36.6; O2SAT 98; BMI 48.1
--- NOTE | 2022-02-07 17:23 | ECG_ITS ---
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 Measurements Intervals [place] Rate: 86 P: 59 ID: [id number] QRS: 25 QRSD: 92 T: 10 QT: 337 QTc: 404 Interpretive Statements SINUS RHYTHM LOW QRS VOLTAGE IN PRECORDIAL LEADS [QRS DEFLECTION < 1.0 mV IN CHEST LEADS] Compared to ECG 01/28/2018 01:06:17 T-wave abnormality no longer present Electronically Signed On 02-07-2022 19:50:10 CDT by Galileo Arreaga M.D. [id number]
[2022-02-07 18:42] LABS: Alanine Aminotransferase 32 U/L (0-33); Albumin Level 3.9 g/dL (3.5-5.2); Alkaline Phosphatase 91 IU/L (35-105); Anion Gap 16.8 (5-19); Aspartate Amino Transferase 27 U/L (0-32); Blood Urea Nitrogen 7 mg/dL (6-20); Calcium 9.2 mg/dL (8.5-10.5); Carbon Dioxide 23 mmol/L (22-29); Chloride 103 mmol/L (98-107); Globulin 3.3 g/dL (1.3-4.6); Glomerular Filtration Rate 134.7 mL/min (90-130); Glucose 95 mg/dL (65-115); Osmolality Calculated 286 mOsm/kg (285-295); Potassium 3.8 mmol/L (3.5-5.1); Sodium 139 mmol/L (136-145); Total Bilirubin 0.5 mg/dL (0.15-1.2); Total Protein 7.2 g/dL (6.6-8.7)
[2022-02-07 18:46] LABS: Basophils % 0.4 %; Eosinophils # 0.1 10^3/uL (0.0-0.8); Eosinophils % 1.1 %; Hematocrit 39.6 % (37.0-47.0); Hemoglobin 13.6 g/dL (11.5-15.3); Lymphocytes # 3.4 10^3/uL (0.8-4.8); Lymphocytes % 32.6 %; Mean Corpuscular HGB Conc 34.3 g/dL (30.0-36.0); Mean Corpuscular Hemoglobin 29.9 pg (28.0-34.0); Monocytes # 0.8 10^3/uL (0.2-0.9); Monocytes % 7.4 %; Neutrophils # 6.14 10^3/uL (1.8-7.7); Neutrophils % 58.1 %; Nucleated Red Blood Cells % 0 %; Platelet Count 335 10^3/cmm (130-400); Red Blood Count 4.55 10^6/uL (4.1-5.3); White Blood Count 10.6 10^3/uL (4.0-10.0)
[2022-02-07 19:19] VITALS: BP 157/95; PULSE 91; RESP 16; O2SAT 99
[2022-02-07] MEDS: levETIRAcetam 500 mg Tablet PO (19:25)
--- NOTE | 2022-02-08 15:00 | DCPLANNER ---
Addendum entered by Nya Mckenzie 04/20/22 11:46: Patient had a follow up appointment scheduled for 03.16.[address] Bermudez - patient did attend appointment Patient had a follow up appointment scheduled for 03.02.22 with neurology for testing - patient did attend appointment. Addendum entered by Nya Mckenzie 02/13/22 04:30: Patient has an outpatient EEG scheduled for Thursday, March 03, 2022 at 1:00. Clinic will call patient with appointment information. Patient has a follow up appointment scheduled for Wednesday March 16, 2022 at 10:[address] Bermudez at neurology. Clinic will call patient with appointment information. Original Note: environmental compliance manager had message to schedule a follow up appointment for patient with neurology and an outpatient EEG. environmental compliance manager sent patients information to the front office staff at neurology. Patients information will be printed and reviewed. Clinic will call patient with appointment information. environmental compliance manager faxed signed order to centralized scheduling, who will call patient with appointment information.
== END 2022-02-07 19:24 | disposition home or self-care (01) ==
PROVIDERS: Emergency Provider Emergency Medicine; PCP Family Medicine
DX: R56.9 Unspecified convulsions (principal)
CPT/HCPCS: 80053; 85025; 93005; 99283

== ENCOUNTER → 2022-03-02 12:23 | Outpatient (BNVA) | payer MEDICARE, MEDICAID, SELFPAY | PROVIDERS: PCP Family Medicine; Referring Provider Emergency Medicine; Visit Provider Specialist | DX: R56.9 Unspecified convulsions (principal) | CPT/HCPCS: 95816 ==

== ENCOUNTER → 2022-03-16 09:54 | Outpatient (BNVA) | payer MEDICARE, MEDICAID, SELFPAY | PROVIDERS: PCP Family Medicine; Referring Provider Nurse Practitioner Family; Visit Provider Specialist | DX: R56.9 Unspecified convulsions (principal) | CPT/HCPCS: 99204 ==

== ENCOUNTER → 2022-04-05 07:51 | Outpatient (BNVA) | payer MEDICARE, MEDICAID, SELFPAY | PROVIDERS: PCP Family Medicine; Referring Provider Specialist; Visit Provider Specialist | DX: F44.5 Conversion disorder with seizures or convulsions (principal) | CPT/HCPCS: 95812; 95816 ==

== ENCOUNTER 2022-05-16 13:23 | Outpatient (CLI) | payer MEDICARE, MEDICAID, SELFPAY ==
--- NOTE | 2022-05-16 14:30 | MR_ITS ---
WS: [id number] MRI BRAIN WITHOUT CONTRAST HISTORY: G40.909 - Epilepsy, unspecified, not intractable, COMPARISON: CT head 02/04/2022 TECHNIQUE: Diffusion imaging, multiplanar T1, T2 and FLAIR imaging obtained. No evidence for acute infarct or hemorrhage. Harmon-white matter differentiation is normal. No remote or acute infarcts are volume loss. There are a few very minimal T2 and FLAIR signal hyperin tensities in subcortical white matter of the frontal lobe. No harmon or white matter asymmetry. No sube pendymal nodules. Hippocampal formations are normal. No atrophy of the hippocampus. Ventricles and extra-axial spaces are normal. No inferior displacement of cerebellar tonsils. The sella turcica and pituitary gland are unremarkabl e. Dural venous sinuses and [place] demonstrate no abnormality on this unenhanced studies. Paranasal sinuses: Clear. Mastoid air cells: Normal. Calvarium and scalp: Intact. MR/MR head wo con* [id number] IMPRESSION: 1. No harmon or white matter lesions or hemorrhage. 2. No hippocampal formation atrophy. 3. No prior infarct or volume loss.
== END 2022-05-16 13:24 | disposition home or self-care (01) ==
PROVIDERS: PCP Family Medicine; Visit Provider Specialist
DX: G40.909 Epilepsy, unspecified, not intractable, without status epilepticus (principal)
CPT/HCPCS: 70551

== ENCOUNTER → 2022-05-25 13:45 | Outpatient (BNVA) | payer MEDICARE, MEDICAID, SELFPAY | PROVIDERS: PCP Family Medicine; Visit Provider Nurse Practitioner Women's Health | DX: N94.10 Unspecified dyspareunia (principal); N39.0 Urinary tract infection, site not specified | CPT/HCPCS: 81000; 87077; 87086; 87184 ==

== ENCOUNTER → 2022-07-04 13:50 | Outpatient (BNVA) | payer MEDICARE, MEDICAID, SELFPAY | PROVIDERS: PCP Family Medicine; Visit Provider Family Medicine | DX: E11.42 Type 2 diabetes mellitus with diabetic polyneuropathy; E78.00 Pure hypercholesterolemia, unspecified; I10 Essential (primary) hypertension; G47.33 Obstructive sleep apnea (adult) (pediatric) | CPT/HCPCS: 80053; 80061; 83036; 84443 ==

== ENCOUNTER → 2022-07-25 14:50 | Outpatient (BNVA) | payer MEDICARE, MEDICAID, SELFPAY | PROVIDERS: PCP Family Medicine; Visit Provider Specialist | DX: F44.5 Conversion disorder with seizures or convulsions (principal); E11.42 Type 2 diabetes mellitus with diabetic polyneuropathy; G47.33 Obstructive sleep apnea (adult) (pediatric); E66.01 Morbid (severe) obesity due to excess calories | CPT/HCPCS: 99214 ==

== ENCOUNTER 2022-07-29 13:41 | Outpatient (CLI) | payer MEDICARE, MEDICAID, SELFPAY ==
--- NOTE | 2022-07-29 13:47 | MM_ITS ---
WS: [id number] BILATERAL 3D TOMOSYNTHESIS DIGITAL SCREENING MAMMOGRAPHY WITH CAD CLINICAL INFORMATION: Z12.39 - Encounter for other screening for malignant neop... HISTORY: Screening mammogram. No current complaints. COMPARISON: June 22, 2020 TECHNIQUE: Bilateral CC and MLO views. FINDINGS: Scattered fibroglandular densities bilaterally. No suspicious focal mass, asymmetry, calcifications, or architectural distortion. No evidence of malignancy. Incidental punctate and lucent centered calci fications. MM/[place] [id number] IMPRESSION: BI-RADS: 2-Benign FOLLOW UP: 1 Year Follow-up Recommend return to annual screening mammography.
== END 2022-07-29 13:42 | disposition home or self-care (01) ==
LOC: RAD 13:42
PROVIDERS: PCP Family Medicine; Visit Provider Nurse Practitioner Women's Health
DX: Z12.31 Encounter for screening mammogram for malignant neoplasm of breast (principal)
CPT/HCPCS: 77063; 77067

== ENCOUNTER 2022-08-28 22:17 | Inpatient (IN) | payer MEDICARE, MEDICAID, SELFPAY ==
[2022-08-28 22:38] VITALS: BP 131/82; PULSE 115; RESP 18; TEMP 38.4; O2SAT 96; BMI 47.2
[2022-08-28 22:56] VITALS: BP 172/94; PULSE 116; RESP 16; O2SAT 98
--- NOTE | 2022-08-28 23:06 | XRR_ITS ---
PROCEDURE INFORMATION: Exam: XR Chest Exam date and time: 08/29/2022 12:13 AM Age: 42 years old Clinical indication: Fever TECHNIQUE: Imaging protocol: Radiologic exam of the chest. Views: 1 view. COMPARISON: CR XR chest 1V [id number] 01/27/2018 10:34 PM FINDINGS: Lungs: Unremarkable. No consolidation. Pleural spaces: Unremarkable. No pleural effusion. No pneumothorax. Heart/Mediastinum: Unremarkable. No cardiomegaly. Bones/joints: Unremarkable. XR/XR chest 1V portable [id number] IMPRESSION: No acute findings.
[2022-08-28 23:12] LABS: Influenza A by IFA negative (Negative); Influenza B by IFA negative (Negative); SARS Covid-2 Antigen negative (Negative)
[2022-08-28] MEDS: sodium chloride 0.9% 1,000 ML 999 ML IV (23:46)
[2022-08-28] MEDS: ondansetron 2 mg/ML SDV 2 mL 4 MG IVP (23:46)
[2022-08-28 23:48] LABS: Basophils # 0.1 10^3/uL (0.0-0.1); Basophils % 0.4 %; Eosinophils # 0.1 10^3/uL (0.0-0.8); Eosinophils % 0.4 %; Hematocrit 38.7 % (37.0-47.0); Hemoglobin 12.6 g/dL (11.5-15.3); Lymphocytes # 2.5 10^3/uL (0.8-4.8); Lymphocytes % 18.5 %; Mean Corpuscular HGB Conc 32.6 g/dL (30.0-36.0); Mean Corpuscular Hemoglobin 30.5 pg (28.0-34.0); Mean Corpuscular Volume 93.7 fl (81-99); Mean Platelet Volume 10.9 fL (7.4-10.4); Monocytes # 1.4 10^3/uL (0.2-0.9); Monocytes % 10.3 %; Neutrophils # 9.44 10^3/uL (1.8-7.7); Neutrophils % 70.1 %; Nucleated Red Blood Cells % 0 %; Platelet Count 334 10^3/cmm (130-400); Red Blood Count 4.13 10^6/uL (4.1-5.3); White Blood Count 13.4 10^3/uL (4.0-10.0)
[2022-08-28] MEDS: acetaminophen 500 mg Tablet 1000 MG PO (23:58)
[2022-08-29] VITALS (17 sets, daily range): BP systolic 104–155; BP diastolic 65–101; PULSE 70–103; RESP 14–18; TEMP 36.1–38.7; O2SAT 94–100
--- NOTE | 2022-08-29 | SC_ITS ---
WS: [id number] C-ARM RADIOGRAPHS ABDOMEN; 3 IMAGES HISTORY: Cystoscopy, left ureteral stent COMPARISON: None available. Intraoperative imaging during cystoscopy and LEFT ureteral stent placement. Catheter is coiled in the mid abdomen consistent with stent placement. SC/C-arm FL for Urology IMPRESSION: Intraoperative imaging during ureteroscopy and stent placement.
[2022-08-29 00:05] LABS: Alanine Aminotransferase 28 U/L (0-33); Albumin Level 3.8 g/dL (3.5-5.2); Alkaline Phosphatase 91 U/L (35-105); Aspartate Amino Transferase 28 U/L (0-32); Blood Urea Nitrogen 7 mg/dL (6-20); Calcium 9.3 mg/dL (8.5-10.5); Carbon Dioxide 24 mmol/L (22-29); Chloride 96 mmol/L (98-107); Globulin 3.6 g/dL (1.3-4.6); Glomerular Filtration Rate 108.6 mL/min (90-130); Glucose 124 mg/dL (65-115); Osmolality Calculated 271 mOsm/kg (285-295); Sodium 131 mmol/L (136-145); Total Bilirubin 0.4 mg/dL (0.15-1.2); Total Protein 7.4 g/dL (6.6-8.7)
[2022-08-29 00:08] LABS: Anion Gap 14.8 (5-19); Potassium 3.8 mmol/L (3.5-5.1)
--- NOTE | 2022-08-29 00:08 | CTR_ITS ---
PROCEDURE INFORMATION: Exam: CT Abdomen And Pelvis With Contrast Exam date and time: 08/29/2022 12:25 AM Age: 42 years old Clinical indication: Abdominal pain; Generalized; Additional info: Abd pain TECHNIQUE: Imaging protocol: Computed tomography of the abdomen and pelvis with contrast. Radiation optimization: All CT scans at this facility use at least one of these dose optimization techniques: automated exposure control; mA and/or kV adjustment per patient size (includes targeted exams where dose is matched to clinical indication); or iterative reconstruction. Contrast material: OMNI 350; Contrast volume: 100 ml; Contrast route: INTRAVENOUS (IV); COMPARISON: CT kidney stone [id number] 02/01/2018 2:58 AM RADIATION DOSE METRICS: Total DLP (mGy-cm): 1228.89 FINDINGS: Lungs: The visualized lung bases are clear. Diaphragm: Tiny hiatal hernia. Liver: Large and hypodense liver. No enhancing liver mass is noted. Gallbladder and bile ducts: No calcified gallstones or biliary dilation identified. Pancreas: Unremarkable with no suspicious mass. No ductal dilation. Spleen: The spleen is not enlarged. No suspicious enhancing mass is noted. Adrenal glands: Normal. No mass. Kidneys and ureters: The left distal ureter shows a 3 mm calculus on series 3, image 80 causing this obstruction. There is periureteral fat stranding. Stomach and bowel: Moderate constipation. Mild sigmoid diverticulosis. Appendix: Absent appendix. Intraperitoneal space: Unremarkable. No free air. No suspicious fluid collection. Vasculature: No AAA or acute vascular lesion identified. Lymph nodes: No enlarged lymph nodes. Urinary bladder: Unremarkable as visualized. Reproductive: Absent uterus. Bones/joints: No acute fracture. Soft tissues: Small fat umbilical hernia. CT/CT abdomen pelvis w con* [id number] IMPRESSION: 1. Left distal ureteral 3 mm calculus causes at least mild obstruction. Superimposed infection not excluded. 2. Fatty liver, constipation, and other chronic findings above.
--- NOTE | 2022-08-29 00:09 | W.ED.FEVER ---
HPI - Fever General: Chief Complaint: Fever Stated Complaint: flu like symptoms, n/v Time Seen by Provider: 08/28/22 23:06 History of Present Illness: 42 yo female patient presents to the ER with nausea vomiting and fever and generalized malaise. Pt states she hurts all over. Pt denies any chest pain or sob. 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 Pt states she feels constipated. Pt has x of HTN other than that she states she is otherwise healthy. Associated symptoms: Deny flank pain, chills, chest pain, confusion, diarrhea, dysuria, extremity pain, headache(s), nasal congestion or sinus pain Review of Systems Const: Denies: fever(s), chills, body aches, change in appetite, change in weight, fatigue or diaphoresis Eyes: Denies: change in vision, blurry vision, blind spots, photophobia, eye discomfort, eye discharge, eye redness, floaters or seeing flashes ENMT: Denies: throat pain, uvular edema, enlarged tonsils, odynophagia, hoarseness, mouth pain, swelling of lips/tongue, oral sores, bleeding gums, dental pain, dry mouth, ear or mastoid pain, ear discharge, change in hearing, tinnitus, disequilibrium, nasal discharge, nasal congestion, post nasal drip or sinus pain Card: Denies: chest pain, palpitations, irregular heart rhythm, edema, swelling of feet/ankles, lightheadedness, syncope, pre-syncope, dyspnea on exertion, orthopnea, leg pain with exertion or acrocyanosis Resp: Denies: dyspnea, productive cough, wheezing, stridor, pain on inspiration, change in phlegm color, hemoptysis or chest congestion GI: Denies: hematemesis, dysphagia, diarrhea, constipation, GI cramping, change in bowel habits or rectal pain : Denies: flank pain, difficulty voiding, dysuria, urinary frequency, urinary urgency, urinary hesitancy or hematuria Musc: Denies: neck pain, back pain, extremity pain, extremity swelling, joint pain, joint swelling, joint redness, joint warmth or deformity Skin/Breast: Denies: rash, pruritus, erythema, sores, new lesions, changes in skin color or dry skin Neuro: Denies: headache(s), numbness in extremities, weakness in extremities, sensory changes, lack of coordination, difficulty walking, frequent falls, dizziness, vertigo, confusion, behavioral changes, Slurred speech present, difficulty communicating thoughts or seizure-like activity Psych: Denies: anxiety, depression, suicidal ideation or homicidal ideation Endo: Denies: polyuria, polydipsia, tired all the time, cold intolerance, excessive sweating, flushing, hot flashes or heat intolerance Oim/Lymph: Denies: easy bruising, easy bleeding, petechiae, purpura, enlarged lymph nodes or tender lymph nodes All/Imm: Denies: urticaria, throat swelling, tongue swelling, facial swelling, acute wheezing or itchy eyes PFSH ED PFSH: Medical History Asthma Chronic constipation COPD (chronic obstructive pulmonary disease) Family history of breast cancer in first degree relative GERD (gastroesophageal reflux disease) Hypercholesteremia Hypertension Menopausal symptoms 2011--started on estradiol by another provider 12/2017--this was my first visit with her and she was on estradiol 1 mg; increase to 1.5 mg 05/02/2019--persistent symptoms--increased estradiol to 2 mg Impression: - Because she is having continued symptoms we will increase her estradiol to 2 mg. We did have a discussion that several of her current health problems and medications could also be contributing to some of her hot flashes and night sweats and we may never get full resolution in her symptoms. We also discussed that there are different estrogen's available and while one-person may not respond to one type of estrogen, they may improve with another type. We will increase her to 2 mg and provide her with a 1 month prescription--staff will call her in 3 weeks for an update and further management pending that discussion. Mixed incontinence Morbid obesity No pertinent past medical history neghx: dvt/pe PCP: Dr. Tello Type 2 diabetes mellitus Surgical History History of anterior colporrhaphy (~04/07/21) 04/07/2021 - Anterior colporrhaphy with allograft, midurethral single incision sling, posterior colporrhaphy with cystoscopy at [place], [place] by Dr. Salazar. History of appendectomy (~02/18/10) Hx of section Hx of dilation and curettage of uterus Hx of hysterectomy (~09/22/11) CARLYLE/BSO for irregular menses. [facility] [place], [facility]/[place]. Benign pathology Hx of tonsillectomy Hx of tubal ligation Family History Mother Diabetes Breast cancer uncertain age of dx Father Diabetes Sister Diabetes Uterine cancer dx age unknown Grandmother Hypertension Maternal Hypercholesteremia Maternal Denies family history of Colon cancer Ovarian cancer Heart disease Thyroid disease Stroke Female Reproductive History: Spontaneous abortions: No Physical Exam Const: COMMON NORMALS: no acute distress, average body habitus, patient oriented x3, no limitations, healthy appearing, alert and well nourished HENMT: COMMON NORMALS: normocephalic, atraumatic, hearing grossly normal bilaterally, external ears normal, EAC's normal, TM's normal bilaterally, Normal external nose present, Normal nasal mucous membranes and turbinates present, moist oral mucous membranes and oropharynx normal HEAD & SCALP: normocephalic and atraumatic NOSE: Normal external nose present and Normal nasal mucous membranes and turbinates present EXTERNAL EAR: Yes external ears normal EXTERNAL AUDITORY CANAL: EAC's normal TYMPANIC MEMBRANE: TM's normal bilaterally THROAT: no uvular edema Neck/C-Spine: COMMON NORMALS: full ROM, no lymphadenopathy, supple and no meningeal signs Lymph: LYMPHATIC: no lymphadenopathy noted Chest: COMMONS NORMALS: normal inspection of the chest Resp: COMMON NORMALS: normal respiratory effort Cardio: COMMON NORMALS: regular rate and regular rhythm RATE: regular rate RHYTHM: regular rhythm GI: COMMON NORMALS: Normal to inspection, nondistended, normoactive bowel sounds present, Soft to palpation, No hepatosplenomegaly present, no masses and no bruits; negative for non-tender PALPATION: Yes Soft to palpation and Yes No hepatosplenomegaly present : COMMON NORMALS: Yes no CVA tenderness BLADDER/KIDNEY EXAM: Yes no CVA tenderness Back/Pelvis: COMMON NORMALS: no CVA tenderness Extremity: COMMON NORMALS: normal to inspection, full ROM and capillary refill normal Neuro: COMMON NORMALS: patient oriented x3 SENSORIUM/ORIENTATION: Yes alert MENINGEAL SIGNS: Yes no meningeal signs Psych: COMMON NORMALS: mental status grossly normal, Normal thought process present, cooperative, normal affect and speech normal SPEECH: Yes normal speech THOUGHT PROCESS: Normal thought process present Skin: COMMON NORMALS: no rashes or lesions noted, no wounds, turgor normal and no jaundice GENERAL SKIN EXAM: no rashes or lesions noted and turgor normal Course Vital Signs: Vital signs: Vital Signs Temperature 100.4 F H 08/29/22 00:52 Pulse Rate 103 H 08/29/22 00:52 Respiratory Rate 16 08/29/22 00:52 Blood Pressure 145/101 08/29/22 00:52 Pulse Oximetry 95 08/29/22 00:52 Oxygen Delivery Me thod 08/29/22 00:52 MDM - Fever Medical Decision Making Patient is well appearing non toxic and in no acute distres. 42 yo female patient presents to the ER with nausea vomiting and fever and generalized malaise. Pt states she hurts all over. Pt denies any chest pain or sob. 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 Pt states she feels constipated. Pt has x of HTN other than that she states she is otherwise healthy. Covid and influenza are negative. I will order labs chest xray and CT abd pelvis. Normal saline infusing. Zofran given. Pt resting comfrtably at this time. Pt has a 3 mm stone in the prescence of UTI and fever. I called and will admit to Dr. Garibay at this time he is planning on taking her to OR Lab Data 08/28/22 23:35 08/28/22 23:35 Radiology Impressions Chest X-Ray 08/28/22 23:06 IMPRESSION: No acute findings. Abdomen/Pelvis CT 08/29/22 00:08 IMPRESSION: 1. Left distal ureteral 3 mm calculus causes at least mild obstruction. Superimposed infection not excluded. 2. Fatty liver, constipation, and other chronic findings above. Laboratory Results WBC 13.4 10^3/uL (4.0-10.0) H 08/28/22 23:35 RBC 4.13 10^6/uL (4.1-5.3) 08/28/22 23:35 Hgb 12.6 g/dL (11.5-15.3) 08/28/22 23:35 Hct 38.7 % (37.0-47.0) 08/28/22 23:35 MCV 93.7 fl (81-99) 08/28/22 23:35 MCH 30.5 pg (28.0-34.0) 08/28/22 23:35 MCHC 32.6 g/dL (30.0-36.0) 08/28/22 23:35 RDW 13.0 % (12.1-15.1) 08/28/22 23:35 Plt Count 334 10^3/cmm (130-400) 08/28/22 23:35 MPV 10.9 fL (7.4-10.4) H 08/28/22 23:35 Neut % (Auto) 70.1 % 08/28/22 23:35 Lymph % (Auto) 18.5 % 08/28/22 23:35 Donley % (Auto) 10.3 % 08/28/22 23:35 Eos % (Auto) 0.4 % 08/28/22 23:35 Baso % (Auto) 0.4 % 08/28/22 23:35 Neut # (Auto) 9.44 10^3/uL (1.8-7.7) H 08/28/22 23:35 Lymph # (Auto) 2.5 10^3/uL (0.8-4.8) 08/28/22 23:35 Donley # (Auto) 1.4 10^3/uL (0.2-0.9) H 08/28/22 23:35 Eos # (Auto) 0.1 10^3/uL (0.0-0.8) 08/28/22 23:35 Baso # (Auto) 0.1 10^3/uL (0.0-0.1) 08/28/22 23:35 Nucleated RBC % (auto) 0 % 08/28/22 23: Nucleated RBCs # 0.0 /100WBC 08/28/22 23:35 Sodium 131 mmol/L (136-145) L 08/28/22 23:35 Potassium 3.8 mmol/L (3.5-5.1) 08/28/22 23:35 Chloride 96 mmol/L (98-107) L 08/28/22 23:35 Carbon Dioxide 24 mmol/L (22-29) 08/28/22 23:35 Anion Gap 14.8 (5-19) 08/28/22 23:35 BUN 7 mg/dL (6-20) 08/28/22 23:35 Creatinine 0.6 mg/dL (0.5-0.9) 08/28/22 23:35 GFR Calculation 108.6 mL/min (90-130) 08/28/22 23:35 Glucose 124 mg/dL (65-115) H 08/28/22 23:35 Calculated Osmolality 271 mOsm/kg (285-295) L 08/28/22 23:35 Calcium 9.3 mg/dL (8.5-10.5) 08/28/22 23:35 Total Bilirubin 0.4 mg/dL (0.15-1.2) 08/28/22 23:35 AST 28 U/L (0-32) 08/28/22 23:35 ALT 28 U/L (0-33) 08/28/22 23:35 Alkaline Phosphatase 91 U/L (35-105) 08/28/22 23:35 Total Protein 7.4 g/dL (6.6-8.7) 08/28/22 23:35 Albumin 3.8 g/dL (3.5-5.2) 08/28/22 23:35 Globulin 3.6 g/dL (1.3-4.6) 08/28/22 23:35 Lipase 18 U/L (13-60) 08/28/22 23:35 Urine Color Yellow (Yellow) 08/28/22 23: Urine Appearance Cloudy (CLEAR) A 08/28/22 23:30 Urine pH 7 (5-7) 08/28/22 23:30 Ur Specific [place] 1.010 (1.005-1.030) 08/28/22 23:30 Urine Protein Trace (Negative) 08/28/22 23: Urine Glucose (UA) Norm (Normal) 08/28/22 23: Urine Ketones Negative (Negative) 08/28/22 23:30 Urine Blood 2+ (Negative) H 08/28/22 23:30 Urine Nitrate Negative (Negative) 08/28/22 23: Urine Bilirubin Neg (Negative) 08/28/22 23: Urine Urobilinogen 1 mg/dL (Negative) H 08/28/22 23:30 Ur Leukocyte Esterase 2+ (Negative) H 08/28/22 23:30 Urine RBC 5-10 /hpf (0-2) H 08/28/22 23:30 Urine WBC >100 /hpf (0-5) H 08/28/22 23:30 Ur Squamous Epith Cells 5-10 /hpf (0-5) H 08/28/22 23:30 Amorphous Sediment Not Reportable 08/28/22 23:30 Urine Bacteria 3+ /hpf (NONE) H 08/28/22 23:30 Urine Mucus Trace /hpf 08/28/22 23:30 Influenza Type A Ag negative (Negative) 08/28/22 22:46 Influenza Type B Ag negative (Negative) 08/28/22 22:46 SARS-CoV-2 Ag (Rapid) negative (Negative) 08/28/22 22:46 Discharge Plan Discharge Condition: Stable Prescriptions: No Action ascorbic acid (vitamin C) 500 mg capsule 500 mg PO DAILY docusate sodium 100 mg capsule 200 mg PO BID estradiol 2 mg tablet 2 mg PO DAILY Qty: 90 3RF ferrous sulfate 325 mg (65 mg iron) tablet 325 mg PO BID Qty: 60 2RF levetiracetam 250 mg tablet 750 mg PO BID Qty: 180 3RF Rx Instructions: Take 3 tablets (750 mg) twice daily. (DME) CPAP Supplies See Rx Instructions .Route .MEDSUPPLY Qty: 1 5RF Rx Instructions: Tubing, filters, mask, and any other necessary supplies. 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
[2022-08-29 00:12] LABS: Lipase 18 U/L (13-60)
[2022-08-29] MEDS: iohexol 350 mg/mL 500 mL Btl (per mL) IV (00:19)
[2022-08-29 00:21] LABS: Bilirubin Urine Neg (Negative); Blood Urine 2+ (Negative); Glucose Urine UA Norm (Normal); Ketones Urine Negative (Negative); Leukocyte Esterase Urine 2+ (Negative); Nitrate Urine Negative (Negative); Protein Urine Trace (Negative); Urine Appearance Cloudy (CLEAR); Urine Color Yellow (Yellow); Urobilinogen Urine 1 mg/dL (Negative); pH Urine 7 (5-7)
[2022-08-29 00:22] LABS: Add Urine Culture? Yes; Add Urine Microscopic? YES; Bacteria Urine 3+ /hpf; Mucus Urine TRACE /hpf; WBC Urine >100 /hpf (0-5)
[2022-08-29] MEDS: cefTRIAXone 1,000 MG in sodium chloride 0.9% (plus) 50 ML 100 MG IV (01:18)
--- NOTE | 2022-08-29 01:43 | P.HP_ITS ---
Providers/Chief Complaint Admitting Physician: Marley Primary Care Provider: Michael Parker DO Chief Complaint: Left ureteral calculus with UTI History of Present Illness Suni Ohara is a 42 year old female admitted through the emergency department for an obstructing 3 mm LEFT distal ureteral stone in the presence of UTI with fever elevated white count without clear evidence of sepsis. She started having pain and fever 3 days ago. Yesterday she started having urgency frequency dysuria. Small voided volumes noted. Denies frequent urinary tract infections. No prior stones. In the emergency department CT scan demonstrated obstruction from a 3.5 mm left ureteral stone approximately 4 inches above the bladder. NO ADDITIONAL stones. White count was elevated at 13+ Creatinine 0.6 Urine was grossly infected. Fever of 100.4. Hemodynamically stable. Because of concern for development of obstructive pyelonephritis/sepsis it was recommended she go to the operating room for stent placement, continued antibiotic therapy, and delayed treatment of the stone after the infection is cleared. Comorbidities include history of seizures, prior diabetes although she is off her diabetic medicine now at the recommendation of her physician. Have consulted the hospitalist service for assistance with medical management. Review of Systems Const: Reports: fever(s), chills, fatigue and malaise Eyes: Reports: change in vision; Denies: yellow eyes ENMT: Denies: hoarseness Card: Denies: chest pain Resp: Denies: dyspnea or productive cough GI: Reports: abdominal pain, nausea and vomiting : Reports: flank pain, dysuria, urinary frequency and urinary urgency Musc: Denies: joint redness Skin/Breast: Denies: rash or pruritus Neuro: Denies: confusion or behavioral changes Psych: Denies: depression or memory loss Endo: Denies: flushing Omi/Lymph: Denies: easy bruising or easy bleeding All/Imm: Denies: acute wheezing Medications/Allergies Home Medications Medication Instructions Recorded Confirmed Last Taken Type ascorbic acid (vitamin C) 500 mg 500 mg PO DAILY 03/23/21 07/27/22 02/07/22 History capsule docusate sodium 100 mg capsule 200 mg PO BID 03/23/21 07/27/22 02/07/22 History dexlansoprazole 60 mg 60 mg PO DAILY #90 caps 10/26/21 07/27/22 02/07/22 Rx capsule,biphase delayed release (Dexilant) ferrous sulfate 325 mg (65 mg 325 mg PO BID #60 tabs 11/30/21 07/27/22 02/07/22 Rx iron) tablet lisinopril 2.5 mg tablet 2.5 mg PO DAILY #90 tabs 01/31/22 07/27/22 02/07/22 Rx duloxetine 60 mg capsule,delayed 60 mg PO DAILY #90 caps 03/22/22 07/27/22 Unknown Rx release atorvastatin 10 mg tablet 10 mg PO DAILY #90 tabs 04/11/22 07/27/22 Unknown Rx estradiol 2 mg tablet 2 mg PO DAILY #90 tabs 05/05/22 07/27/22 Unknown Rx estradiol 0.01% (0.1 mg/gram) 1 g vaginal .THREE TIME WEEKLY 05/25/22 07/27/22 Unknown Rx vaginal cream dyspareunia #42.5 grams CPAP Supplies #1 ea 07/04/22 07/27/22 Unknown Rx levetiracetam 250 mg tablet 750 mg PO BID #180 tabs 07/25/22 07/27/22 Unknown Rx Allergies Allergy/AdvReac Type Severity Reaction Status Date / Time ciprofloxacin [From Cipro] Allergy Mild unknown Verified 07/27/22 09:41 magnesium oxide Allergy Mild unknown Verified 07/27/22 09:41 morphine Allergy Mild unknown Verified 07/27/22 09:41 Penicillins Allergy Mild unknown Verified 07/27/22 09:41 sulfabenzamide Allergy Mild unknown Verified 07/27/22 09:41 sulfamethoxazole Allergy Mild unknown Verified 07/27/22 09:41 [From Bactrim] tizanidine Allergy Mild unknown Verified 07/27/22 09:41 trimethoprim [From Bactrim] Allergy Mild unknown Verified 07/27/22 09:41 PFSH Acute PFSH: Medical History Asthma Chronic constipation COPD (chronic obstructive pulmonary disease) Family history of breast cancer in first degree relative GERD (gastroesophageal reflux disease) Hypercholesteremia Hypertension Menopausal symptoms 2011--started on estradiol by another provider 12/2017--this was my first visit with her and she was on estradiol 1 mg; increase to 1.5 mg 05/02--persistent symptoms--increased estradiol to 2 mg Impression: - Because she is having continued symptoms we will increase her estradiol to 2 mg. We did have a discussion that several of her current health problems and medications could also be contributing to some of her hot flashes and night sweats and we may never get full resolution in her symptoms. We also discussed that there are different estrogen's available and while one-person may not respond to one type of estrogen, they may improve with another type. We will increase her to 2 mg and provide her with a 1 month prescription--staff will call her in 3 weeks for an update and further management pending that discussion. Mixed incontinence Morbid obesity No pertinent past medical history neghx: dvt/pe PCP: Dr. Tello Type 2 diabetes mellitus Surgical History History of anterior colporrhaphy (~04/07/21) 04/07/2021 - Anterior colporrhaphy with allograft, midurethral single incision sling, posterior colporrhaphy with cystoscopy at [place], [place] by Dr. Salazar. History of appendectomy (~02/18/10) Hx of section Hx of dilation and curettage of uterus Hx of hysterectomy (~09/22/11) CARLYLE/BSO for irregular menses. [facility] [place] [facility]/[place]. Benign pathology Hx of tonsillectomy Hx of tubal ligation Family History Mother Diabetes Breast cancer uncertain age of dx Father Diabetes Sister Diabetes Uterine cancer dx age unknown Grandmother Hypertension Maternal Hypercholesteremia Maternal Denies family history of Colon cancer Ovarian cancer Heart disease Thyroid disease Stroke Female Reproductive History: Spontaneous abortions: No Vitals/I&O/Wt Last Vital Signs Temp 100.4 F H 08/29/22 00:52 Pulse 103 H 08/29/22 00:52 Resp 16 08/29/22 00:52 BP 145/101 08/29/22 00:52 Pulse Ox 95 08/29/22 00:52 O2 Del Method 08/29/22 00:52 Weight last 48 hrs Weight 258 lb Physical Exam Const: COMMON NORMALS: no acute distress, alert and well nourished GENERAL APPEARANCE: well kempt and well developed ORIENTATION/CONSCIOUSNESS: not confused HENMT: COMMON NORMALS: normocephalic HEAD & SCALP: normal to inspection and normocephalic Eye: COMMON NORMALS: conjunctivae normal and no scleral icterus CONJUNCTIVA: Yes conjunctivae normal Neck/C-Spine: GENERAL: Yes normal visual inspection Lymph: LYMPHATIC: no lymphadenopathy noted and no lymphedema noted Chest: OTHER: Normal chest movements Resp: COMMON NORMALS: normal respiratory effort EFFORT & INSPECTION: Yes able to speak in complete sentences, No labored and No Actively coughing Cardio: OTHER: Tachycardic, no obvious murmurs, regular rate/rhythm GI: OTHER: Tender, no masses, : OTHER: Left CVA tenderness, bladder nondistended, normal external female genitalia, no prolapse Back/Pelvis: OTHER: Left CVA tenderness Extremity: COMMON NORMALS: no clubbing, cyanosis or edema Neuro: COMMON NORMALS: no focal motor deficits SENSORIUM/ORIENTATION: Yes alert Psych: COMMON NORMALS: mental status grossly normal APPEARANCE: Yes grossly normal and Yes well kempt ATTITUDE: Yes calm and Yes engaged Skin: COMMON NORMALS: no rashes or lesions noted and no jaundice NARRATIVE SKIN EXAM: Several piercings GENERAL SKIN EXAM: no rashes or lesions noted Data 08/28/22 23:35 08/28/22 23:35 Other data: Reviewed CT scan and lab personally A&P Assessment and plan (1) Left ureteral calculus: Approximately 3.5 left distal ureteral stone complicated by UTI, leukocytosis, fever (2) UTI (urinary tract infection): Not a frequent UTI patient. (3) Hypertension: Qualifiers: Hypertension type: essential hypertension Qualified Code(s): I10 - Essential (primary) hypertension (4) Hypercholesteremia: (5) Morbid obesity: (6) Type 2 diabetes mellitus: (7) Obstructive sleep apnea: (8) COPD (chronic obstructive pulmonary disease): (9) Diabetic peripheral neuropathy associated with type 2 diabetes mellitus: Plan To the operating room urgently for left ureteral stent placement. Hospitalist service consulted for medical management. Attestations Medical Necessity Statement*: To the operating room. Will need IV antibiotics. High risk for progressive infectious concerns. 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
--- NOTE | 2022-08-29 01:45 | PM.CONSULT ---
Providers/Reason For Consult Consulting Physician/Specialty*: Urology Reason for Consult*: Medical management Primary Care Provider: Michael Parker DO History of Present Illness History of Present Illness Suni Ohara is a 42 year old female with a past medical history of nephrolithiasis, history of seizures, history of noninsulin-dependent type 2 diabetes mellitus, obstructive sleep apnea, morbid obesity, GERD, hypertension, hyperlipidemia, COPD, who presents to [facility] due to a 48-hour history of nausea, vomiting, fevers, complaints of dysuria, hematuria, no flank pain Review of Systems Const: Reports: fever(s) and malaise Eyes: Denies: change in vision Card: Denies: chest pain Resp: Denies: dyspnea GI: Denies: abdominal pain : Denies: flank pain Musc: Denies: back pain Neuro: Denies: headache(s) Endo: Denies: polyuria Medications/Allergies Home Medications Medication Instructions Recorded Confirmed Last Taken Type ascorbic acid (vitamin C) 500 mg 500 mg PO DAILY 03/23/21 07/27/22 02/07/22 History capsule docusate sodium 100 mg capsule 200 mg PO BID 03/23/21 07/27/22 02/07/22 History dexlansoprazole 60 mg 60 mg PO DAILY #90 caps 10/26/21 07/27/22 02/07/22 Rx capsule,biphase delayed release (Dexilant) ferrous sulfate 325 mg (65 mg 325 mg PO BID #60 tabs 11/30/21 07/27/22 02/07/22 Rx iron) tablet lisinopril 2.5 mg tablet 2.5 mg PO DAILY #90 tabs 01/31/22 07/27/22 02/07/22 Rx duloxetine 60 mg capsule,delayed 60 mg PO DAILY #90 caps 03/22/22 07/27/22 Unknown Rx release atorvastatin 10 mg tablet 10 mg PO DAILY #90 tabs 04/11/22 07/27/22 Unknown Rx estradiol 2 mg tablet 2 mg PO DAILY #90 tabs 05/05/22 07/27/22 Unknown Rx estradiol 0.01% (0.1 mg/gram) 1 g vaginal .THREE TIME WEEKLY 05/25/22 07/27/22 Unknown Rx vaginal cream dyspareunia #42.5 grams CPAP Supplies #1 ea 07/04/22 07/27/22 Unknown Rx levetiracetam 250 mg tablet 750 mg PO BID #180 tabs 07/25/22 07/27/22 Unknown Rx Allergies Allergy/AdvReac Type Severity Reaction Status Date / Time ciprofloxacin [From Cipro] Allergy Mild unknown Verified 07/27/22 09:41 magnesium oxide Allergy Mild unknown Verified 07/27/22 09:41 morphine Allergy Mild unknown Verified 07/27/22 09:41 Penicillins Allergy Mild unknown Verified 07/27/22 09:41 sulfabenzamide Allergy Mild unknown Verified 07/27/22 09:41 sulfamethoxazole Allergy Mild unknown Verified 07/27/22 09:41 [From Bactrim] tizanidine Allergy Mild unknown Verified 07/27/22 09:41 trimethoprim [From Bactrim] Allergy Mild unknown Verified 07/27/22 09:41 PFSH Acute PFSH: Medical History Asthma Chronic constipation COPD (chronic obstructive pulmonary disease) Family history of breast cancer in first degree relative GERD (gastroesophageal reflux disease) Hypercholesteremia Hypertension Menopausal symptoms 2011--started on estradiol by another provider 12/2017--this was my first visit with her and she was on estradiol 1 mg; increase to 1.5 mg 05/02/2019--persistent symptoms--increased estradiol to 2 mg Impression: - Because she is having continued symptoms we will increase her estradiol to 2 mg. We did have a discussion that several of her current health problems and medications could also be contributing to some of her hot flashes and night sweats and we may never get full resolution in her symptoms. We also discussed that there are different estrogen's available and while one-person may not respond to one type of estrogen, they may improve with another type. We will increase her to 2 mg and provide her with a 1 month prescription--staff will call her in 3 weeks for an update and further management pending that discussion. Mixed incontinence Morbid obesity No pertinent past medical history neghx: dvt/pe PCP: Dr. Tello Type 2 diabetes mellitus Surgical History History of anterior colporrhaphy (~04/07/21) 04/07/2021 - Anterior colporrhaphy with allograft, midurethral single incision sling, posterior colporrhaphy with cystoscopy at [place], [place] by Dr. Salazar. History of appendectomy (~02/18/10) Hx of section Hx of dilation and curettage of uterus Hx of hysterectomy (~09/22/11) CARLYLE/[facility] for irregular menses[facility] [place] Benign pathology Hx of tonsillectomy Hx of tubal ligation Family History Mother Diabetes Breast cancer uncertain age of dx Father Diabetes Sister Diabetes Uterine cancer dx age unknown Grandmother Hypertension Maternal Hypercholesteremia Maternal Denies family history of Colon cancer Ovarian cancer Heart disease Thyroid disease Stroke Female Reproductive History: Spontaneous abortions: No Vitals/I&O/Wt Last Vital Signs Temp 100.4 F H 08/29/22 00:52 Pulse 103 H 08/29/22 00:52 Resp 16 08/29/22 00:52 BP 145/101 08/29/22 00:52 Pulse Ox 95 08/29/22 00:52 O2 Del Method 08/29/22 00:52 Weight last 48 hrs Weight 117.027 kg Physical Exam Const: COMMON NORMALS: no acute distress and patient oriented x3 HENMT: COMMON NORMALS: normocephalic HEAD & SCALP: normocephalic Eye: COMMON NORMALS: Equal, round and reactive pupils present and EOMs intact bilaterally PUPIL: Yes Equal, round and reactive pupils present Neck/C-Spine: COMMON NORMALS: no JVD Lymph: LYMPHATIC: no lymphadenopathy noted Resp: COMMON NORMALS: normal respiratory effort, No retractions, No use of accessory muscles and clear to auscultation bilaterally AUSCULTATION: clear to auscultation bilaterally Cardio: COMMON NORMALS: no JVD, regular rate, regular rhythm, S1 normal heart sound present and S2 normal heart sound present RATE: regular rate RHYTHM: regular rhythm HEART SOUNDS: S1 normal heart sound present and S2 normal heart sound present GI: COMMON NORMALS: Normal to inspection, nondistended, normoactive bowel sounds present, Soft to palpation, non-tender and No hepatosplenomegaly present PALPATION: Yes Soft to palpation and Yes No hepatosplenomegaly present Extremity: COMMON NORMALS: no pedal edema Neuro: COMMON NORMALS: patient oriented x3, CN's II-XII intact bilaterally, moves all extremities and no focal motor deficits Psych: COMMON NORMALS: mental status grossly normal Data 08/28/22 23:35 08/28/22 23:35 A&P Assessment and plan (1) Nephrolithiasis: (2) COPD (chronic obstructive pulmonary disease): (3) GERD (gastroesophageal reflux disease): Qualifiers: Esophagitis presence: with esophagitis Esophagitis bleeding: without hemorrhage Qualified Code(s): K21.00 - Gastro-esophageal reflux disease with esophagitis, without bleeding (4) Hypertension: Qualifiers: Hypertension type: essential hypertension Qualified Code(s): I10 - Essential (primary) hypertension (5) Hypercholesteremia: (6) Diabetic peripheral neuropathy associated with type 2 diabetes mellitus: (7) Type 2 diabetes mellitus: Plan Nephrolithiasis, CT scan showed left distal ureteral 3 mm colliculi, with mild obstruction, superimposed infection not excluded, has received fluid, antibiotic therapy in the emergency room, Roach has been consulted, plans on taking to the OR. 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
--- NOTE | 2022-08-29 01:54 | ANES.PREANE2 ---
Pre-Anesthetic Assessment Height/Weight: Height 1.57 m Weight 117.027 kg Temp Pulse Resp BP Pulse Ox O2 Del Method 100.4 F H 103 H 16 145/101 95 08/29/22 00:52 08/29/22 00:52 08/29/22 00:52 08/29/22 00:52 08/29/22 00:52 08/29/22 00:52 Preop Diagnosis: urinary stone cystoscopy with stent placement Familial anesthetic complications: none Was Beta Jaquan taken within 24 hours: N/A Was Clonidine taken within 24 hours: N/A Last intake: 08/27/221999 solids sips with meds 08/28/22 in the ER per patient. Social Tobacco (vape) and No alcohol Airway Cervical ROM: within normal limits Mallampati: Class III Dentition: false Pulmonary Asthma (not official diagnosis) and Sleep Apnea CV/HEM Hypertension urinary stone Hepatic None reported GI Gastroesophageal Reflux Disease Metabolic Diabetes Mellitus (resolved per patient no medications), Hyperlipidemia and Morbid Obesity [place]/[facility] None reported Neuropsych Seizure (1 month prior.) Anesthetic Plan ASA status: 3E Anesthesia: General Medications/Allergies Home Medications Medication Instructions Recorded Confirmed Last Taken Type ascorbic acid (vitamin C) 500 mg 500 mg PO DAILY 03/23/21 07/27/22 02/07/22 History capsule docusate sodium 100 mg capsule 200 mg PO BID 03/23/21 07/27/22 02/07/22 History dexlansoprazole 60 mg 60 mg PO DAILY #90 caps 10/26/21 07/27/22 02/07/22 Rx capsule,biphase delayed release (Dexilant) ferrous sulfate 325 mg (65 mg 325 mg PO BID #60 tabs 11/30/21 07/27/22 02/07/22 Rx iron) tablet lisinopril 2.5 mg tablet 2.5 mg PO DAILY #90 tabs 01/31/22 07/27/22 02/07/22 Rx duloxetine 60 mg capsule,delayed 60 mg PO DAILY #90 caps 03/22/22 07/27/22 Unknown Rx release atorvastatin 10 mg tablet 10 mg PO DAILY #90 tabs 04/11/22 07/27/22 Unknown Rx estradiol 2 mg tablet 2 mg PO DAILY #90 tabs 05/05/22 07/27/22 Unknown Rx estradiol 0.01% (0.1 mg/gram) 1 g vaginal .THREE TIME WEEKLY 05/25/22 07/27/22 Unknown Rx vaginal cream dyspareunia #42.5 grams CPAP Supplies #1 ea 07/04/22 07/27/22 Unknown Rx levetiracetam 250 mg tablet 750 mg PO BID #180 tabs 07/25/22 07/27/22 Unknown Rx Allergies Allergy/AdvReac Type Severity Reaction Status Date / Time ciprofloxacin [From Cipro] Allergy Mild unknown Verified 07/27/22 09:41 magnesium oxide Allergy Mild unknown Verified 07/27/22 09:41 morphine Allergy Mild unknown Verified 07/27/22 09:41 Penicillins Allergy Mild unknown Verified 07/27/22 09:41 sulfabenzamide Allergy Mild unknown Verified 07/27/22 09:41 sulfamethoxazole Allergy Mild unknown Verified 07/27/22 09:41 [From Bactrim] tizanidine Allergy Mild unknown Verified 07/27/22 09:41 trimethoprim [From Bactrim] Allergy Mild unknown Verified 07/27/22 09:41 PFS Anesthesia Medical History Asthma Chronic constipation COPD (chronic obstructive pulmonary disease) Family history of breast cancer in first degree relative GERD (gastroesophageal reflux disease) Hypercholesteremia Hypertension Menopausal symptoms 2011--started on estradiol by another provider 12/2017--this was my first visit with her and she was on estradiol 1 mg; increase to 1.5 mg 05/02/2019--persistent symptoms--increased estradiol to 2 mg Impression: - Because she is having continued symptoms we will increase her estradiol to 2 mg. We did have a discussion that several of her current health problems and medications could also be contributing to some of her hot flashes and night sweats and we may never get full resolution in her symptoms. We also discussed that there are different estrogen's available and while one-person may not respond to one type of estrogen, they may improve with another type. We will increase her to 2 mg and provide her with a 1 month prescription--staff will call her in 3 weeks for an update and further management pending that discussion. Mixed incontinence Morbid obesity No pertinent past medical history neghx: dvt/pe PCP: Dr. Tello Type 2 diabetes mellitus Surgical History History of anterior colporrhaphy (~04/07/21) 04/07/2021 - Anterior colporrhaphy with allograft, midurethral single incision sling, posterior colporrhaphy with cystoscopy at [place], [place] by Dr. Salazar. History of appendectomy (~02/18/10) Hx of section Hx of dilation and curettage of uterus Hx of hysterectomy (~09/22/11) CARLYLE/BSO for irregular menses. [facility] [place], [facility]. Benign pathology Hx of tonsillectomy Hx of tubal ligation Family History Mother Diabetes Breast cancer uncertain age of dx Father Diabetes Sister Diabetes Uterine cancer dx age unknown Grandmother Hypertension Maternal Hypercholesteremia Maternal Denies family history of Colon cancer Ovarian cancer Heart disease Thyroid disease Stroke Female Reproductive History Spontaneous abortions: No Data Anesthesia 08/28/22 23:35 08/28/22 23:35 Short CBC 08/28/22 Range/Units 23:35 WBC 13.4 H (4.0-10.0) 10^3/uL Hgb 12.6 (11.5-15.3) g/dL Hct 38.7 (37.0-47.0) % MCV 93.7 (81-99) fl Plt Count 334 (130-400) 10^3/cmm Neut % (Auto) 70.1 % Neut # (Auto) 9.44 H (1.8-7.7) 10^3/uL BMP 08/28/22 23:35 Sodium 131 L Potassium 3.8 Chloride 96 L Carbon Dioxide 24 BUN 7 Creatinine 0.6 Glucose 124 H Calcium 9.3 Liver Function 08/28/22 Range/Units 23:35 Total Bilirubin 0.4 (0.15-1.2) mg/dL AST 28 (0-32) U/L ALT 28 (0-33) U/L Alkaline Phosphatase 91 (35-105) U/L Albumin 3.8 (3.5-5.2) g/dL Urine 08/28/22 Range/Units 23:30 Urine Color Yellow (Yellow) Urine Appearance Cloudy A (CLEAR) Urine pH 7 (5-7) Ur Specific [place] 1.010 (1.005-1.030) Urine Protein Trace (Negative) Urine Glucose (UA) Norm (Normal) Urine Ketones Negative (Negative) Urine Nitrate Negative (Negative) Urine Bilirubin Neg (Negative) Ur Leukocyte Esterase 2+ H (Negative) Urine RBC 5-10 H (0-2) /hpf Urine WBC >100 H (0-5) /hpf COVID Results 08/28/22 22:46 SARS-CoV-2 Ag (Rapid) negative Cardiac Studies: No Data to Display
--- NOTE | 2022-08-29 02:07 | P.OP_ITS ---
Operative Report Date of procedure: August 29, 2022 Pre-op diagnosis: 1. Left distal ureteral stone with obstruction 2. UTI with leukocytosis and fever Post-op diagnosis: 1. Left distal ureteral stone with obstruction 2. UTI with leukocytosis and fever Procedure done: 1. Cystoscopy, left ureteral stent Implants: Left ureteral stent: 7 [place] by 24 cm double-pigtail without string Specimens removed/disposition: None Pathology: None Surgeon: Marley Estimated blood loss: None Urine output: Not measured Complications: None Findings: Anesthesia: General Condition: Stable disposition: PACU then floor Intraoperative findings: * Stent placed without difficulty. * Column of contrast from the CT scan demonstrated level of obstruction. Brief History: Suni is a 42-year-old white female with no prior history of stones who presented to the ER with 3 days of fever chills left flank pain and lower urinary tract symptoms suspicious for UTI. White count was elevated at 13. Temperature was 100.4. CT scan demonstrated 3.5 mm left distal ureteral stone with obstruction. It was recommended because of concern for potential sepsis and obstructive pyelonephritis that she go to the operating room for stent placement. Hospitalist service was consulted for medical management. She has a history of seizures, previous diabetes. Procedure: After emergent evaluation examination and obtaining of informed consent she was taken to the operating suite on 08-29-2022 where general anesthesia was administered without difficulty after appropriate timeout was performed, SCDs confirmed to be functioning, preoperative antibiotics administered, beta-libby protocol confirmed. Prepped and draped in the usual sterile fashion in dorsolithotomy position paying careful attention to avoiding pressure points. 21 [place] cystoscope with 30 degree lens was introduced to the urethra meatus and advanced to the bladder without difficulty. Bladder was systematically examined. No stones were seen. A flexible tip guidewire was advanced up the left ureter bypassing the stone and a 7 [place] by 24 cm double-pigtail stent was advanced over the guidewire through the cystoscope into appropriate position as confirmed via fluoroscopy and cystoscopy. Bladder was drained and the procedure was completed. Tolerated procedure well without complications and was awakened in the operating room and returned to PACU in stable condition. PLANS: 1. Admit, IV antibiotics 2. Plan for intervention for the stone in roughly 1-2 weeks after complete recovery from the infection.
[2022-08-29] MEDS: sodium chloride 0.9% 1,000 ML 30 ML IV (02:23)
[2022-08-29] MEDS: sodium chloride 0.9% 1,000 ML 100 ML IV ×2 (04:38→17:11)
[2022-08-29 05:23] LABS: Estmated Average Glucose 111; Hemoglobin A1C 5.5 % (4.0-6.0)
[2022-08-29 06:24] LABS: Glucose Point of Care 120 mg/dL (70-110)
[2022-08-29] MEDS: duloxetine 60 mg Capsule PO (07:26)
[2022-08-29] MEDS: ferrous sulfate EC 325 mg Tablet PO ×2 (07:26→17:11)
[2022-08-29] MEDS: levETIRAcetam 500 mg Tablet 750 MG PO ×2 (07:26→17:11)
[2022-08-29] MEDS: acetaminophen 325 mg Tablet 650 MG PO (07:26)
[2022-08-29] MEDS: atorvastatin 40 mg Tablet 10 MG PO (07:27)
--- NOTE | 2022-08-29 08:25 | PC.PHAR ---
pt states she takes care of her own medications-pt states she uses the estradiol 0.1mg cream 1g twice a week on and mon rx filled 08/07/22 1g three times a week-pt states she takes levetiracetam 250mg tabs takes 500mg bid states the dr decreased in june rx filled 08/07/22 30d/s for 250mg tabs take 750mg bid-notes are made in the pharmacy comments
[2022-08-29] MEDS: cefTRIAXone 2,000 MG in sodium chloride 0.9% (plus) 50 ML 100 MG IV (08:55)
[2022-08-29] MEDS: HYDROcodone-acetaminophen 5-325 mg Tablet 1 TAB PO ×2 (09:44→19:18)
[2022-08-29] MEDS: docusate sodium 100 mg Capsule PO ×2 (09:44→17:11)
--- NOTE | 2022-08-29 09:52 | P.PN_ITS ---
Subjective Subjective: Urology postop day #1, emergency left ureteral stenting for UTI and obstructing stone Since surgery she has not had any fever. She is complaining of some left flank pain probably stent related and UTI related. Appreciate hospitalist/Dr. Sorenson's help. Lab pending today. Rocephin restarted. Discussed discharge opportunity when her cultures are available and she is a good candidate for oral antibiotics. Medications: Reviewed: Yes Vitals/I&O/Wt Last Vital Signs Temp 98.1 F 08/29/22 07:57 Pulse 73 08/29/22 07:57 Resp 16 08/29/22 07:57 BP 111/67 08/29/22 07:57 Pulse Ox 97 08/29/22 07:57 O2 Del Method 08/29/22 07:57 O2 Flow Rate 6 08/29/22 02:58 08/28/22 08/29/22 08/29/22 22:59 06:59 14:59 Intake Total 0 / 0 196 / 196 Output Total 0 / 0 Balance 0 / 0 196 / 196 Weight last 48 hrs Weight 258 lb Physical Exam Const: COMMON NORMALS: no acute distress HENMT: COMMON NORMALS: normocephalic HEAD & SCALP: normocephalic Resp: COMMON NORMALS: normal respiratory effort, No retractions, No use of accessory muscles and clear to auscultation bilaterally AUSCULTATION: clear to auscultation bilaterally Extremity: COMMON NORMALS: no pedal edema Psych: COMMON NORMALS: mental status grossly normal MOOD & AFFECT: Yes euthymic mood INSIGHT: Fair insight present (Psych) Data 08/28/22 23:35 08/28/22 23:35 A&P Assessment and plan (1) UTI (urinary tract infection): Clinically better. No more fever since surgery. Hopefully can discharge tomorrow on oral antibiotics with plans for attempt at definitive therapy sometime next week. (2) Left ureteral calculus: Attestations Medical Necessity Statement*: Continuing IV antibiotics for obstructi ng/infected stone Potential discharge tomorrow if continues to improve. 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
[2022-08-29 11:23] LABS: Glucose Point of Care 111 mg/dL (70-110)
[2022-08-29 11:41] LABS: Basophils % 0.4 %; Eosinophils # 0.1 10^3/uL (0.0-0.8); Eosinophils % 0.8 %; Hematocrit 34.6 % (37.0-47.0); Lymphocytes # 2.1 10^3/uL (0.8-4.8); Lymphocytes % 19.3 %; Mean Corpuscular HGB Conc 31.8 g/dL (30.0-36.0); Mean Corpuscular Hemoglobin 30.2 pg (28.0-34.0); Mean Corpuscular Volume 95.1 fl (81-99); Mean Platelet Volume 10.8 fL (7.4-10.4); Monocytes # 1.3 10^3/uL (0.2-0.9); Monocytes % 12.3 %; Neutrophils # 7.26 10^3/uL (1.8-7.7); Neutrophils % 66.7 %; Nucleated Red Blood Cells % 0 %; Platelet Count 282 10^3/cmm (130-400); Red Blood Count 3.64 10^6/uL (4.1-5.3); White Blood Count 10.9 10^3/uL (4.0-10.0)
[2022-08-29 12:05] LABS: Alanine Aminotransferase 23 U/L (0-33); Albumin Level 3.3 g/dL (3.5-5.2); Alkaline Phosphatase 75 U/L (35-105); Anion Gap 13.6 (5-19); Aspartate Amino Transferase 20 U/L (0-32); Blood Urea Nitrogen 7 mg/dL (6-20); Calcium 8.1 mg/dL (8.5-10.5); Carbon Dioxide 23 mmol/L (22-29); Chloride 104 mmol/L (98-107); Globulin 3.1 g/dL (1.3-4.6); Glomerular Filtration Rate 173.4 mL/min (90-130); Glucose 118 mg/dL (65-115); Osmolality Calculated 283 mOsm/kg (285-295); Potassium 3.6 mmol/L (3.5-5.1); Sodium 137 mmol/L (136-145); Total Bilirubin 0.2 mg/dL (0.15-1.2); Total Protein 6.4 g/dL (6.6-8.7)
[2022-08-29 16:40] LABS: Glucose Point of Care 163 mg/dL (70-110)
--- NOTE | 2022-08-29 18:16 | PC.NURSE ---
PATIENT COMPLAINED OF PAIN WHEN I TOOK OVER HER CARE THIS MORNING. DR. ESPARZA ORDERED HYDROCODONE. I ADMINISTERED 1 TABLET AND PATIENT RESTED AFTER. PATIENT HAS HAD GOOD OUTPUT. STILL HAVING FREQUENCY. STILL HAVING SOME HEMATURIA. GOOD PO INTAKE. PAIN DECREASED FROM THIS MORNING. PATIENT CURRENTLY EATING SUPPER WITH AT BEDSIDE.
--- NOTE | 2022-08-29 18:35 | PM.PN ---
Subjective Subjective: Patient was seen and examined this morning, she was little sleepy, has been started on oral pain medication S/p left ureteral stent. Medications: Reviewed: Yes Medication Review Details: Generic Name Dose Route Start Last Admin Trade Name Matt PRN Reason Stop Dose Admin Acetaminophen 650 mg 08/29/22 03:30 08/29/22 07:26 Acetaminophen 32 5 Mg Tablet PO 650 mg Q6H PRN Administration Mild/Mod Pain Or Temp >/= 101 Hydrocodone Bitart /Acetaminophen 1 tab 08/29/22 09:24 08/29/22 09:44 Hydrocodone-Acet aminophen 5-325 Mg Tablet PO 1 tab Q4H PRN Administration MODERATE PAIN Atorvastatin Calci um 10 mg 08/29/22 09:00 08/29/22 07:27 Atorvastatin 40 Mg Tablet PO 10 mg DAILY ADRIA Administration Docusate Sodium 100 mg 08/29/22 09:25 08/29/22 17:11 Docusate Sodium 100 Mg Capsule PO 100 mg BID ADRIA Administration Duloxetine HCl 60 mg 08/29/22 09:00 08/29/22 07:26 Duloxetine 60 Mg Capsule PO 60 mg DAILY ADRIA Administration Ferrous Sulfate 325 mg 08/29/22 09:00 08/29/22 17:11 Ferrous Sulfate Ec 325 Mg Tablet PO 325 mg BID ADRIA Administration Sodium Chloride 1,000 mls @ 100 m ls/hr 08/29/22 03:30 08/29/22 17:11 Sodium Chloride 0.9% IV 100 mls/hr .Q10H ADRIA Administration Ceftriaxone Sodium 2,000 mg/ 50 mls @ 100 mls/ hr 08/29/22 08:45 08/29/22 11:19 Sodium Chloride IV Infused Q24H ADRIA Infusion Protocol Insulin Human Lisp ro 0 unit 08/29/22 08:00 08/29/22 17:12 Insulin Lispro 1 00 Unit/1 Ml SUBCUT Not Given TIDWM ADRIA Protocol Levetiracetam 750 mg 08/29/22 09:00 08/29/22 17:11 Levetiracetam 50 0 Mg Tablet PO 750 mg BID ADRIA Administration Vitals/I&O/Wt Last Vital Signs Temp 97.8 F 08/29/22 11:52 Pulse 88 08/29/22 11:52 Resp 18 08/29/22 11:52 BP 124/87 08/29/22 11:52 Pulse Ox 94 01/02/23 11:52 O2 Del Method 08/29/22 11:52 O2 Flow Rate 6 08/29/22 02:58 08/29/22 08/29/22 08/29/22 06:59 14:59 22:59 Intake Total 0 / 0 1246 / 1246 240 / 1486 Output Total 0 / 0 400 / 400 450 / 850 Balance 0 / 0 846 / 846 -210 / 636 Weight last 48 hrs Weight 117.027 kg Physical Exam HENMT: COMMON NORMALS: normocephalic and atraumatic HEAD & SCALP: normocephalic and atraumatic Resp: COMMON NORMALS: clear to auscultation bilaterally EFFORT & INSPECTION: Yes symmetric chest movement AUSCULTATION: clear to auscultation bilaterally Cardio: COMMON NORMALS: regular rate, regular rhythm, S1 normal heart sound present, S2 normal heart sound present, No gallops present (Cardio), No murmurs present (Cardio), No rub (Cardio) and Peripheral pulses 2+ throughout RATE: regular rate RHYTHM: regular rhythm HEART SOUNDS: S1 normal heart sound present and S2 normal heart sound present PERIPHERAL PULSES: Peripheral pulses 2+ throughout GI: COMMON NORMALS: Normal to inspection, nondistended, normoactive bowel sounds present, Soft to palpation, non-tender, No hepatosplenomegaly present and no masses AUSCULTATION: Yes normoactive bowel sounds PALPATION: Yes Soft to palpation and Yes No hepatosplenomegaly present RECTAL EXAM: deferred Extremity: COMMON NORMALS: no clubbing, cyanosis or edema and no pedal edema Data 08/29/22 11:12 08/29/22 11:12 Micro: Microbiology 08/29/22 11:12 Blood Culture - Preliminary Blood SPECIMEN COLLECTED 08/29/22 09:31 Blood Culture - Preliminary Blood SPECIMEN COLLECTED A&P Assessment and plan (1) Nephrolithiasis: (2) COPD (chronic obstructive pulmonary disease): (3) GERD (gastroesophageal reflux disease): Qualifiers: Esophagitis presence: with esophagitis Esophagitis bleeding: without hemorrhage Qualified Code(s): K21.00 - Gastro-esophageal reflux disease with esophagitis, without bleeding (4) Hypertension: Qualifiers: Hypertension type: essential hypertension Qualified Code(s): I10 - Essential (primary) hypertension (5) Hypercholesteremia: (6) Diabetic peripheral neuropathy associated with type 2 diabetes mellitus: (7) Type 2 diabetes mellitus: Plan 42-year-old female with past medical history of nephrolithiasis diabetes, seizure disorder, came in with chief complaint of left flank pain and fever going on for the last 3 days , accompanied with urgency frequency and dysuria, which started yesterday. Work-up in the ER revealed, left distal ureteral 3 mm calculi with mild obstruction, s/p left ureteral stent by Dr. Roach. Assessment: Left nephrolithiasis: With mild obstruction: Status post left ureteral stent. UTI Fever: Likely secondary to UTI Diabetes Seizure disorder Hypertension Morbid obesity Plan: CT abdomen pelvis w con:Left distal ureteral 3 mm calculus causes at least mild obstruction. Superimposed infection. Blood culture Urine culture Lactic acid Procalcitonin Continue ceftriaxone 2 g IV daily for now Continue Keppra Continue sliding scale insulin, monitor fingerstick glucose Continue IV hydration with normal saline Monitoring intake /output charting Urology on board CODE STATUS: Full code DVT prophylaxis on Lovenox Attestations Medical Necessity Statement*: Patient is to be in hospital for management of left nephrolithiasis UTI pending blood culture urine culture. 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
[2022-08-29] MEDS: enoxaparin 40 mg/0.4 mL Syringe SUBCUT (19:19)
[2022-08-29 21:09] LABS: Glucose Point of Care 127 mg/dL (70-110)
[2022-08-30 01:54] LABS: Basophils # 0.1 10^3/uL (0.0-0.1); Basophils % 0.5 %; Eosinophils # 0.1 10^3/uL (0.0-0.8); Eosinophils % 1.4 %; Hematocrit 33.2 % (37.0-47.0); Hemoglobin 10.6 g/dL (11.5-15.3); Lymphocytes # 2.9 10^3/uL (0.8-4.8); Lymphocytes % 28.3 %; Mean Corpuscular HGB Conc 31.9 g/dL (30.0-36.0); Mean Corpuscular Hemoglobin 29.9 pg (28.0-34.0); Mean Corpuscular Volume 93.5 fl (81-99); Mean Platelet Volume 10.5 fL (7.4-10.4); Monocytes # 1.2 10^3/uL (0.2-0.9); Monocytes % 11.5 %; Neutrophils # 5.91 10^3/uL (1.8-7.7); Neutrophils % 57.9 %; Nucleated Red Blood Cells % 0 %; Platelet Count 289 10^3/cmm (130-400); Red Blood Count 3.55 10^6/uL (4.1-5.3); Red Cell Distribution Width 12.9 % (12.1-15.1); White Blood Count 10.2 10^3/uL (4.0-10.0)
[2022-08-30 02:12] LABS: Lactate (Lactic Acid level) 0.7 mmol/L (0.5-2.2)
[2022-08-30 02:18] LABS: Alanine Aminotransferase 23 U/L (0-33); Albumin Level 3.3 g/dL (3.5-5.2); Alkaline Phosphatase 78 U/L (35-105); Anion Gap 11.1 (5-19); Aspartate Amino Transferase 29 U/L (0-32); Blood Urea Nitrogen 5 mg/dL (6-20); Calcium 7.9 mg/dL (8.5-10.5); Carbon Dioxide 26 mmol/L (22-29); Chloride 105 mmol/L (98-107); Globulin 2.9 g/dL (1.3-4.6); Glucose 131 mg/dL (65-115); Osmolality Calculated 285 mOsm/kg (285-295); Potassium 4.1 mmol/L (3.5-5.1); Sodium 138 mmol/L (136-145); Total Bilirubin 0.3 mg/dL (0.15-1.2); Total Protein 6.2 g/dL (6.6-8.7)
[2022-08-30] MEDS: HYDROcodone-acetaminophen 5-325 mg Tablet 1 TAB PO ×3 (02:53→21:31)
[2022-08-30] MEDS: sodium chloride 0.9% 1,000 ML 100 ML IV ×2 (02:54→13:01)
[2022-08-30 03:50] VITALS: BP 106/73; PULSE 90; RESP 16; TEMP 36.4; O2SAT 96
[2022-08-30 06:44] LABS: Glucose Point of Care 95 mg/dL (70-110)
[2022-08-30 07:44] VITALS: BP 126/83; PULSE 87; RESP 16; TEMP 36.5; O2SAT 95
[2022-08-30] MEDS: duloxetine 60 mg Capsule PO (09:03)
[2022-08-30] MEDS: levETIRAcetam 500 mg Tablet 750 MG PO ×2 (09:03→17:34)
[2022-08-30] MEDS: docusate sodium 100 mg Capsule PO ×2 (09:03→17:34)
[2022-08-30] MEDS: atorvastatin 40 mg Tablet 10 MG PO (09:04)
[2022-08-30] MEDS: ferrous sulfate EC 325 mg Tablet PO ×2 (09:05→17:34)
[2022-08-30] MEDS: cefTRIAXone 2,000 MG in sodium chloride 0.9% (plus) 50 ML 100 MG IV (11:18)
[2022-08-30 11:33] LABS: Glucose Point of Care 131 mg/dL (70-110)
[2022-08-30 15:35] VITALS: BP 107/70; PULSE 82; RESP 17; TEMP 36.6; O2SAT 95
[2022-08-30] MEDS: enoxaparin 40 mg/0.4 mL Syringe SUBCUT (17:35)
--- NOTE | 2022-08-30 17:44 | PM.PN ---
Subjective Subjective: Patient was seen and examined this morning, continues to be afebrile, blood cultures so far has been negative so far, urine culture: Gram-negative rods pending identification. Pain is better controlled. Medications: Reviewed: Yes Medication Review Details: Generic Name Dose Route Start Last Admin Trade Name Jaq PRN Reason Stop Dose Admin Acetaminophen 650 mg 08/29/22 03:30 08/29/22 07:26 Acetaminophen 32 5 Mg Tablet PO 650 mg Q6H PRN Administration Mild/Mod Pain Or Temp >/= 101 Hydrocodone Bitart /Acetaminophen 1 tab 08/29/22 09:24 08/29/22 09:44 Hydrocodone-Acet aminophen 5-325 Mg Tablet PO 1 tab Q4H PRN Administration MODERATE PAIN Atorvastatin Calci um 10 mg 08/29/22 09:00 08/29/22 07:27 Atorvastatin 40 Mg Tablet PO 10 mg DAILY ADRIA Administration Docusate Sodium 100 mg 08/29/22 09:25 08/29/22 17:11 Docusate Sodium 100 Mg Capsule PO 100 mg BID ADRIA Administration Duloxetine HCl 60 mg 08/29/22 09:00 08/29/22 07:26 Duloxetine 60 Mg Capsule PO 60 mg DAILY ADRIA Administration Ferrous Sulfate 325 mg 08/29/22 09:00 08/29/22 17:11 Ferrous Sulfate Ec 325 Mg Tablet PO 325 mg BID ADRIA Administration Sodium Chloride 1,000 mls @ 100 m ls/hr 08/29/22 03:30 08/29/22 17:11 Sodium Chloride 0.9% IV 100 mls/hr .Q10H ADRIA Administration Ceftriaxone Sodium 2,000 mg/ 50 mls @ 100 mls/ hr 08/29/22 08:45 08/29/22 11:19 Sodium Chloride IV Infused Q24H ADRIA Infusion Protocol Insulin Human Lisp ro 0 unit 08/29/22 08:00 08/29/22 17:12 Insulin Lispro 1 00 Unit/1 Ml SUBCUT Not Given TIDWM ADRIA Protocol Levetiracetam 750 mg 08/29/22 09:00 08/29/22 17:11 Levetiracetam 50 0 Mg Tablet PO 750 mg BID ADRIA Administration Vitals/I&O/Wt Last Vital Signs Temp 97.8 F 08/30/22 15:35 Pulse 82 08/30/22 15:35 Resp 17 08/30/22 15:35 BP 107/70 08/30/22 15:35 Pulse Ox 95 08/30/22 15:35 O2 Del Method 08/30/22 03:50 O2 Flow Rate 6 08/29/22 02:58 FiO2 21 08/29/22 22:22 08/30/22 08/30/22 08/30/22 06:59 14:59 22:59 Intake Total 971.667 / 2457.667 1680 / 1680 Output Total 1400 / 2250 1200 / 1200 Balance -428.333 / 207.667 480 / 480 Weight last 48 hrs Weight 117.027 kg Physical Exam HENMT: COMMON NORMALS: normocephalic and atraumatic HEAD & SCALP: normocephalic and atraumatic Resp: COMMON NORMALS: clear to auscultation bilaterally EFFORT & INSPECTION: Yes symmetric chest movement AUSCULTATION: clear to auscultation bilaterally Cardio: COMMON NORMALS: regular rate, regular rhythm, S1 normal heart sound present, S2 normal heart sound present, No gallops present (Cardio), No murmurs present (Cardio), No rub (Cardio) and Peripheral pulses 2+ throughout RATE: regular rate RHYTHM: regular rhythm HEART SOUNDS: S1 normal heart sound present and S2 normal heart sound present PERIPHERAL PULSES: Peripheral pulses 2+ throughout GI: COMMON NORMALS: Normal to inspection, nondistended, normoactive bowel sounds present, Soft to palpation, non-tender, No hepatosplenomegaly present and no masses AUSCULTATION: Yes normoactive bowel sounds PALPATION: Yes Soft to palpation and Yes No hepatosplenomegaly present RECTAL EXAM: deferred Extremity: COMMON NORMALS: no clubbing, cyanosis or edema and no pedal edema Data 08/30/22 01:41 08/30/22 01:41 Micro: Microbiology 08/29/22 11:12 Blood Culture - Preliminary Blood NEGATIVE TO DATE 08/29/22 09:31 Blood Culture - Preliminary Blood NEGATIVE TO DATE 08/28/22 23:30 Urine Culture - Preliminary Urine,Clean Catch Gram Negative Rods A&P Assessment and plan (1) Nephrolithiasis: (2) COPD (chronic obstructive pulmonary disease): (3) GERD (gastroesophageal reflux disease): Qualifiers: Esophagitis presence: with esophagitis Esophagitis bleeding: without hemorrhage Qualified Code(s): K21.00 - Gastro-esophageal reflux disease with esophagitis, without bleeding (4) Hypertension: Qualifiers: Hypertension type: essential hypertension Qualified Code(s): I10 - Essential (primary) hypertension (5) Hypercholesteremia: (6) Diabetic peripheral neuropathy associated with type 2 diabetes mellitus: (7) Type 2 diabetes mellitus: Plan 42-year-old female with past medical history of nephrolithiasis diabetes, seizure disorder, came in with chief complaint of left flank pain and fever going on for the last 3 days , accompanied with urgency frequency and dysuria, which started yesterday. Work-up in the ER revealed, left distal ureteral 3 mm calculi with mild obstruction, s/p left ureteral stent by Dr. Roach. Assessment: Left nephrolithiasis: With mild obstruction: Status post left ureteral stent. UTI Fever: Likely secondary to UTI Diabetes Seizure disorder Hypertension Morbid obesity Plan: CT abdomen pelvis w con:Left distal ureteral 3 mm calculus causes at least mild obstruction. Superimposed infection. 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
[2022-08-30 17:59] LABS: Glucose Point of Care 126 mg/dL (70-110)
--- NOTE | 2022-08-30 18:34 | P.PN_ITS ---
Subjective Subjective: Delayed entry for urology note 08/30/2022 Postoperative day #1 for cystoscopy ureteral stent placement for UTI and obstructing stone. Feeling better. Denies any severe flank pain but does have some stent discomfort. No nausea or vomiting, chest pain, shortness of breath focal neurologic symptoms etc. Urine is clearing. She does feel weak though. Urine cultures are still pending. She is growing gram-negative organism sensitivities yet to be determined. Once we know the sensitivities I think it will be reasonable for oral antibiotics and discharge. Vitals/I&O/Wt Last Vital Signs Temp 97.9 F 08/31/22 04:00 Pulse 91 08/31/22 04:00 Resp 14 08/31/22 04:00 BP 120/84 08/31/22 04:00 Pulse Ox 97 08/31/22 04:00 O2 Del Method 08/31/22 04:00 O2 Flow Rate 6 08/29/22 02:58 FiO2 21 08/29/22 22:22 08/30/22 08/31/22 08/31/22 22:59 06:59 14:59 Intake Total 240 / 1920 1000 / 2920 836.667 / 836.667 Output Total 600 / 1800 800 / 2600 Balance -360 / 120 200 / 320 836.667 / 836.667 Physical Exam Const: COMMON NORMALS: no acute distress HENMT: COMMON NORMALS: normocephalic HEAD & SCALP: normocephalic Resp: COMMON NORMALS: normal respiratory effort, No retractions, No use of accessory muscles and clear to auscultation bilaterally AUSCULTATION: clear to auscultation bilaterally Psych: COMMON NORMALS: mental status grossly normal MOOD & AFFECT: Yes euthymic mood INSIGHT: Fair insight present (Psych) Data 08/31/22 01:15 08/31/22 01:15 Micro: Microbiology 08/29/22 11:12 Blood Culture - Preliminary Blood NEGATIVE TO DATE 08/29/22 09:31 Blood Culture - Preliminary Blood NEGATIVE TO DATE 08/28/22 23:30 Urine Culture - Preliminary Urine,Clean Catch Gram Negative Rods A&P Assessment and plan (1) UTI (urinary tract infection): See HPI. (2) Left ureteral calculus: We will plan for definitive treatment of the stone sometime next week. Plan See HPI Attestations Medical Necessity Statement*: Hopefully cultures will be available on 08/31/2022 in order to make a decision about which antibiotics to utilize and route for discharge. 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
[2022-08-30 20:02] VITALS: BP 129/79; PULSE 84; RESP 15; TEMP 36.5; O2SAT 97
[2022-08-30 20:29] LABS: Glucose Point of Care 138 mg/dL (70-110)
[2022-08-31] VITALS: BP 110/74; PULSE 80; RESP 16; TEMP 36.6; O2SAT 97
[2022-08-31] MEDS: sodium chloride 0.9% 1,000 ML 100 ML IV ×2 (00:10→08:32)
[2022-08-31 01:36] LABS: Basophils # 0.1 10^3/uL (0.0-0.1); Basophils % 0.5 %; Eosinophils # 0.5 10^3/uL (0.0-0.8); Eosinophils % 4.7 %; Hematocrit 33.1 % (37.0-47.0); Hemoglobin 10.6 g/dL (11.5-15.3); Lymphocytes # 3.4 10^3/uL (0.8-4.8); Lymphocytes % 35.2 %; Mean Corpuscular Hemoglobin 29.9 pg (28.0-34.0); Mean Corpuscular Volume 93.5 fl (81-99); Mean Platelet Volume 10.8 fL (7.4-10.4); Monocytes # 0.9 10^3/uL (0.2-0.9); Monocytes % 9.1 %; Neutrophils # 4.88 10^3/uL (1.8-7.7); Neutrophils % 50.1 %; Nucleated Red Blood Cells % 0 %; Platelet Count 340 10^3/cmm (130-400); Red Blood Count 3.54 10^6/uL (4.1-5.3); Red Cell Distribution Width 12.6 % (12.1-15.1); White Blood Count 9.8 10^3/uL (4.0-10.0)
[2022-08-31 02:14] LABS: Alanine Aminotransferase 33 U/L (0-33); Albumin Level 3.5 g/dL (3.5-5.2); Alkaline Phosphatase 101 U/L (35-105); Anion Gap 13.1 (5-19); Aspartate Amino Transferase 30 U/L (0-32); Blood Urea Nitrogen 6 mg/dL (6-20); Calcium 8.4 mg/dL (8.5-10.5); Carbon Dioxide 27 mmol/L (22-29); Chloride 104 mmol/L (98-107); Globulin 3.1 g/dL (1.3-4.6); Glucose 139 mg/dL (65-115); Osmolality Calculated 290 mOsm/kg (285-295); Potassium 4.1 mmol/L (3.5-5.1); Sodium 140 mmol/L (136-145); Total Bilirubin 0.2 mg/dL (0.15-1.2); Total Protein 6.6 g/dL (6.6-8.7)
[2022-08-31 04:00] VITALS: BP 120/84; PULSE 91; RESP 14; TEMP 36.6; O2SAT 97
[2022-08-31 06:34] LABS: Glucose Point of Care 107 mg/dL (70-110)
[2022-08-31] MEDS: cefTRIAXone 2,000 MG in sodium chloride 0.9% (plus) 50 ML 100 MG IV (08:23)
[2022-08-31] MEDS: atorvastatin 40 mg Tablet 10 MG PO (08:26)
[2022-08-31] MEDS: ferrous sulfate EC 325 mg Tablet PO (08:26)
[2022-08-31] MEDS: docusate sodium 100 mg Capsule PO (08:27)
[2022-08-31] MEDS: levETIRAcetam 500 mg Tablet 750 MG PO (08:28)
[2022-08-31] MEDS: duloxetine 60 mg Capsule PO (08:28)
--- NOTE | 2022-08-31 10:51 | PM.DCS ---
Discharge Providers Date of Admission: 08/29/22 02:29 Date of Discharge: August 31, 2022 Attending Provider at Admission: Cali Roach MD Attending Provider at Discharge: Cali Roach MD Consults: Hospitalist service Primary Care Provider: Michael Parker DO Diagnoses at Discharge Discharge Diagnosis (1) UTI (urinary tract infection): Status: Acute (2) Left ureteral calculus: Details from hospital stay: 3 mm left distal ureteral stone with obstruction complicated by UTI Status: Acute Permanent problem details: Emergency stenting for obstructing left distal ureteral stone with UTI, 08/29/2022 Reason for Visit Reason for Visit: Left ureteral calculus with UTI Brief History: Suni is a very pleasant 42-year-old white female who was admitted through the emergency department emergently for cystoscopy and stent placement secondary to a 3 mm left obstructing distal ureteral stone complicated by UTI with stomach symptoms of fever and chills. She was hemodynamically stable. She was taken to the operating room emergently from the ED. Hospital Course Hospital Course Operatively she did well. The hospitalist service was consulted for medical management. She was continued on ceftriaxone throughout her hospital stay and because of her lack of recurrent fever or hemodynamic instability she was discharged on oral antibiotics on 08/31/2022 stable condition. Fully explained to the next steps. Emphasized the importance of not leaving the stent in for prolonged period of time and therefore the importance of follow-up as scheduled. Regarding the stone plans were made for endoscopic treatment on 09/07/2022 via Outpatient Surgery. Physical Exam Const: COMMON NORMALS: no acute distress, alert and well nourished GENERAL APPEARANCE: well kempt and well developed ORIENTATION/CONSCIOUSNESS: not confused HENMT: COMMON NORMALS: normocephalic HEAD & SCALP: normocephalic Neck/C-Spine: GENERAL: Yes normal visual inspection Resp: COMMON NORMALS: normal respiratory effort EFFORT & INSPECTION: Yes able to speak in complete sentences, No labored and No Actively coughing Extremity: COMMON NORMALS: no clubbing, cyanosis or edema Neuro: COMMON NORMALS: no focal motor deficits SENSORIUM/ORIENTATION: Yes alert Psych: APPEARANCE: Yes grossly normal and Yes well kempt ATTITUDE: Yes calm and Yes engaged Skin: COMMON NORMALS: no rashes or lesions noted and no jaundice NARRATIVE SKIN EXAM: Several piercings GENERAL SKIN EXAM: no rashes or lesions noted Discharge Data Studies Completed and Pending Completed Studies During Hospitalization Category Date Time Status CT abdomen pelvis w con* [id number] Stat Cat Scan 08/29/22 00:08 Completed XR chest 1V portable [id number] Stat Exams 08/28/22 23:06 Completed Pending at discharge Category Date Time Status Blood Culture Routine Lab 08/29/22 11:12 Results CBC Auto Diff [Complete Blood Count w/Auto] AM LABS Lab 09/01/22 04:00 Ordered CMP [Comprehensive Metabolic Panel] AM LABS Lab 09/01/22 04:00 Ordered Urine Culture Routine Lab 08/30/22 11:19 Received Radiology Impressions Chest X-Ray 08/28/22 23:06 IMPRESSION: No acute findings. C-Arm Fluoroscopy 08/29/22 00:00 IMPRESSION: Intraoperative imaging during ureteroscopy and stent placement. Abdomen/Pelvis CT 08/29/22 00:08 IMPRESSION: 1. Left distal ureteral 3 mm calculus causes at least mild obstruction. Superimposed infection not excluded. 2. Fatty liver, constipation, and other chronic findings above. Laboratory Results WBC 9.8 10^3/uL (4.0-10.0) 08/31/22 01:15 RBC 3.54 10^6/uL (4.1-5.3) L 08/31/22 01:15 Hgb 10.6 g/dL (11.5-15.3) L 08/31/22 01:15 Hct 33.1 % (37.0-47.0) L 08/31/22 01:15 MCV 93.5 fl (81-99) 08/31/22 01:15 MCH 29.9 pg (28.0-34.0) 08/31/22 01:15 MCHC 32.0 g/dL (30.0-36.0) 08/31/22 01:15 RDW 12.6 % (12.1-15.1) 08/31/22 01:15 Plt Count 340 10^3/cmm (130-400) 08/31/22 01:15 MPV 10.8 fL (7.4-10.4) H 08/31/22 01:15 Neut % (Auto) 50.1 % 08/31/22 01:15 Lymph % (Auto) 35.2 % 08/31/22 01:15 [place] % (Auto) 9.1 % 08/31/22 01:15 Eos % (Auto) 4.7 % 08/31/22 01:15 Baso % (Auto) 0.5 % 08/31/22 01:15 Neut # (Auto) 4.88 10^3/uL (1.8-7.7) 08/31/22 01:15 Lymph # (Auto) 3.4 10^3/uL (0.8-4.8) 08/31/22 01:15 [place] # (Auto) 0.9 10^3/uL (0.2-0.9) 08/31/22 01:15 Eos # (Auto) 0.5 10^3/uL (0.0-0.8) 08/31/22 01:15 Baso # (Auto) 0.1 10^3/uL (0.0-0.1) 08/31/22 01:15 Nucleated RBC % (auto) 0 % 08/31/22 01:15 Nucleated RBCs # 0.0 /100WBC 08/31/22 01:15 Sodium 140 mmol/L (136-145) 08/31/22 01:15 Potassium 4.1 mmol/L (3.5-5.1) 08/31/22 01:15 Chloride 104 mmol/L (98-107) 08/31/22 01:15 Carbon Dioxide 27 mmol/L (22-29) 08/31/22 01:15 Anion Gap 13.1 (5-19) 08/31/22 01:15 BUN 6 mg/dL (6-20) 08/31/22 01:15 Creatinine 0.5 mg/dL (0.5-0.9) 08/31/22 01:15 GFR Calculation 134.0 mL/min (90-130) H 08/31/22 01:15 Glucose 139 mg/dL (65-115) H 08/31/22 01:15 POC Glucose 107 mg/dL (70-110) 08/31/22 06:31 Estimat Average Glucose 111 08/28/22 23:55 Hemoglobin A1c 5.5 % (4.0-6.0) 08/28/22 23:55 Calculated Osmolality 290 mOsm/kg (285-295) 08/31/22 01:15 Lactate 0.7 mmol/L (0.5-2.2) 08/30/22 01:41 Calcium 8.4 mg/dL (8.5-10.5) L 08/31/22 01:15 Total Bilirubin 0.2 mg/dL (0.15-1.2) 08/31/22 01:15 AST 30 U/L (0-32) 08/31/22 01:15 ALT 33 U/L (0-33) 08/31/22 01:15 Alkaline Phosphatase 101 U/L (35-105) 08/31/22 01:15 Total Protein 6.6 g/dL (6.6-8.7) 08/31/22 01:15 Albumin 3.5 g/dL (3.5-5.2) 08/31/22 01:15 Globulin 3.1 g/dL (1.3-4.6) 08/31/22 01:15 Lipase 18 U/L (13-60) 08/28/22 23:35 Procalcitonin 0.10 ng/mL (0-0.5) 08/30/22 01:41 Urine Color Yellow (Yellow) 08/28/22 23:30 Urine Appearance Cloudy (CLEAR) A 08/28/22 23:30 Urine pH 7 (5-7) 08/28/22 23:30 Ur Specific [place] 1.010 (1.005-1.030) 08/28/22 23:30 Urine Protein Trace (Negative) 08/28/22 23:30 Urine Glucose (UA) Norm (Normal) 08/28/22 23:30 Urine Ketones Negative (Negative) 08/28/22 23:30 Urine Blood 2+ (Negative) H 08/28/22 23:30 Urine Nitrate Negative (Negative) 08/28/22 23:30 Urine Bilirubin Neg (Negative) 08/28/22 23:30 Urine Urobilinogen 1 mg/dL (Negative) H 08/28/22 23:30 Ur Leukocyte Esterase 2+ (Negative) H 08/28/22 23:30 Urine RBC 5-10 /hpf (0-2) H 08/28/22 23:30 Urine WBC >100 /hpf (0-5) H 08/28/22 23:30 Ur Squamous Epith Cells 5-10 /hpf (0-5) H 08/28/22 23:30 Amorphous Sediment Not Reportable 08/28/22 23:30 Urine Bacteria 3+ /hpf (NONE) H 08/28/22 23:30 Urine Mucus Trace /hpf 08/28/22 23:30 Influenza Type A Ag negative (Negative) 08/28/22 22:46 Influenza Type B Ag negative (Negative) 08/28/22 22:46 SARS-CoV-2 Ag (Rapid) negative (Negative) 08/28/22 22:46 Vitals Last Vital Signs Temp 97.9 F 08/31/22 04:00 Pulse 91 08/31/22 04:00 Resp 14 08/31/22 04:00 BP 120/84 08/31/22 04:00 Pulse Ox 97 08/31/22 04:00 O2 Del Method 08/31/22 04:00 O2 Flow Rate 6 08/29/22 02:58 FiO2 21 08/29/22 22:22 Discharge Plan Discharge Patient Disposition: Home Condition: Stable Prescriptions: New cefuroxime axetil 500 mg tablet 500 mg PO BID 10 Days Qty: 28 0RF Continued docusate sodium 100 mg capsule 200 mg PO BID estradiol 2 mg tablet 2 mg PO DAILY Qty: 90 3RF ferrous sulfate 325 mg (65 mg iron) tablet 325 mg PO BID Qty: 60 2RF (DME) CPAP Supplies See Rx Instructions .Route .MEDSUPPLY Qty: 1 5RF Rx Instructions: Tubing, filters, mask, and any other necessary supplies. Dexilant 60 mg capsule,biphase delayed releas 60 mg PO DAILY Qty: 90 1RF lisinopril 2.5 mg tablet 2.5 mg PO DAILY Qty: 90 1RF duloxetine 60 mg capsule,delayed release(DR/EC) 60 mg PO DAILY Qty: 90 2RF atorvastatin 10 mg tablet 10 mg PO DAILY Qty: 90 1RF Vitamin C 500 mg Tablet 500 mg PO BID levetiracetam 250 mg tablet 500 mg PO BID estradiol 0.01 % (0.1 mg/gram) cream 1 g VAGINAL .TWICE A WEEK Rx Instructions: at bedtime on monday and monday Discharge Orders: Discharge Order (Routine); Ordered 08/31/22 Ordered By: Cali Roach Referrals: Michael Parker DO [Primary Care Provider] - 09/06/22 10:30 am Cali Roach MD [Physician] - (Next visit will be Outpatient Surgery on 09/07/2022 for endoscopic stone removal.) Discharge Diet: Usual diet Discharge Activity: Increase activity as tolerated Patient Instructions: Opioid Safety Activity Restrictions/Additional Instructions: 1. We will plan on going after the stone with ureteroscopy next Monday on 09/07/2022. We will not need to see you in clinic prior to that point. 2. The hospital will call the day before and tell you what time to arrive. We will also review with you over the phone instructions. Do not eat anything after midnight the night before or drink anything after midnight the night before the procedure. 3. Remember that she have a stent in place and it will cause urgency, frequency, blood in the urine, flank pain with voiding, bladder pain. Your symptoms may be worse than usual because of the infection. 4. A prescription has been sent to [facility] for an antibiotic. Continue the antibiotic without stopping it until it is completed. 5. If you have any questions call my office at [phone]. Discharge Attestations Time Spent in Discharge Care*: greater than 30 min Quality Metrics Clinical Quality Measures [ No reported AMI, CVA or VTE this stay] Coding Level of Care Code Acute [facility] note Diagnoses UTI (urinary tract infection) N39.0 Left ureteral calculus N20.1
[2022-08-31 11:57] VITALS: BP 120/84; PULSE 91; RESP 14; TEMP 36.6; O2SAT 97
--- NOTE | 2022-08-31 13:17 | PM.PN ---
Subjective Subjective: No acute event, pain well controlled,afebrile, blood culture:Negative. Medications: Reviewed: Yes Medication Review Details: Generic Name Dose Route Start Last Admin Trade Name Matt PRN Reason Stop Dose Admin Acetaminophen 650 mg 08/29/22 03:30 08/29/22 07:26 Acetaminophen 32 5 Mg Tablet PO 650 mg Q6H PRN Administration Mild/Mod Pain Or Temp >/= 101 Hydrocodone Bitart /Acetaminophen 1 tab 08/29/22 09:24 08/30/22 21:31 Hydrocodone-Acet aminophen 5-325 Mg Tablet PO 1 tab Q4H PRN Administration MODERATE PAIN Atorvastatin Calci um 10 mg 08/29/22 09:00 08/31/22 08:26 Atorvastatin 40 Mg Tablet PO 10 mg DAILY ADRIA Administration Docusate Sodium 100 mg 08/29/22 09:25 08/31/22 08:27 Docusate Sodium 100 Mg Capsule PO 100 mg BID ADRIA Administration Duloxetine HCl 60 mg 08/29/22 09:00 08/31/22 08:28 Duloxetine 60 Mg Capsule PO 60 mg DAILY ADRIA Administration Enoxaparin Sodium 40 mg 08/29/22 19:00 08/30/22 17:35 Enoxaparin 40 Mg /0.4 Ml Syringe SUBCUT 40 mg Q24H ADRIA Administration Ferrous Sulfate 325 mg 08/29/22 09:00 08/31/22 08:26 Ferrous Sulfate Ec 325 Mg Tablet PO 325 mg BID ADRIA Administration Sodium Chloride 1,000 mls @ 100 m ls/hr 08/29/22 03:30 08/31/22 08:32 Sodium Chloride 0.9% IV 100 mls/hr .Q10H ADRIA Administration Ceftriaxone Sodium 2,000 mg/ 50 mls @ 100 mls/ hr 08/29/22 08:45 08/31/22 09:41 Sodium Chloride IV Infused Q24H ADRIA Infusion Protocol Insulin Human Lisp ro 0 unit 08/29/22 08:00 08/31/22 07:20 Insulin Lispro 1 00 Unit/1 Ml SUBCUT Not Given [facility] Protocol Levetiracetam 750 mg 08/29/22 09:00 08/31/22 08:28 Levetiracetam 50 0 Mg Tablet PO 750 mg BID ADRIA Administration Vitals/I&O/Wt Last Vital Signs Temp 97.9 F 08/31/22 11:57 Pulse 91 08/31/22 11:57 Resp 14 08/31/22 11:57 BP 120/84 08/31/22 11:57 Pulse Ox 97 08/31/22 11:57 O2 Del Method 08/31/22 04:00 O2 Flow Rate 6 08/29/22 02:58 FiO2 21 08/29/22 22:22 08/30/22 08/31/22 08/31/22 22:59 06:59 14:59 Intake Total 240 / 1920 1000 / 2920 1126.667 / 1126.667 Output Total 600 / 1800 800 / 2600 900 / 900 Balance -360 / 120 200 / 320 226.667 / 226.667 Physical Exam HENMT: COMMON NORMALS: normocephalic and atraumatic HEAD & SCALP: normocephalic and atraumatic Resp: COMMON NORMALS: clear to auscultation bilaterally EFFORT & INSPECTION: Yes symmetric chest movement AUSCULTATION: clear to auscultation bilaterally Cardio: COMMON NORMALS: regular rate, regular rhythm, S1 normal heart sound present, S2 normal heart sound present, No gallops present (Cardio), No murmurs present (Cardio), No rub (Cardio) and Peripheral pulses 2+ throughout RATE: regular rate RHYTHM: regular rhythm HEART SOUNDS: S1 normal heart sound present and S2 normal heart sound present PERIPHERAL PULSES: Peripheral pulses 2+ throughout GI: COMMON NORMALS: Normal to inspection, nondistended, normoactive bowel sounds present, Soft to palpation, non-tender, No hepatosplenomegaly present and no masses AUSCULTATION: Yes normoactive bowel sounds PALPATION: Yes Soft to palpation and Yes No hepatosplenomegaly present RECTAL EXAM: deferred Extremity: COMMON NORMALS: no clubbing, cyanosis or edema and no pedal edema Data 08/31/22 01:15 08/31/22 01:15 Micro: Microbiology 08/30/22 11:19 Urine Culture - Preliminary Urine,Clean Catch 08/28/22 23:30 Urine Culture - Final Urine,Clean Catch Klebsiella pneumoniae 08/29/22 11:12 Blood Culture - Preliminary Blood NEGATIVE TO DATE 08/29/22 09:31 Blood Culture - Preliminary Blood NEGATIVE TO DATE A&P Assessment and plan (1) Nephrolithiasis: (2) COPD (chronic obstructive pulmonary disease): (3) GERD (gastroesophageal reflux disease): Qualifiers: Esophagitis bleeding: without hemorrhage Esophagitis presence: with esophagitis Qualified Code(s): K21.00 - Gastro-esophageal reflux disease with esophagitis, without bleeding (4) Hypertension: Qualifiers: Hypertension type: essential hypertension Qualified Code(s): I10 - Essential (primary) hypertension (5) Hypercholesteremia: (6) Diabetic peripheral neuropathy associated with type 2 diabetes mellitus: (7) Type 2 diabetes mellitus: Plan 42-year-old female with past medical history of nephrolithiasis diabetes, seizure disorder, came in with chief complaint of left flank pain and fever going on for the last 3 days , accompanied with urgency frequency and dysuria, which started yesterday. Work-up in the ER revealed, left distal ureteral 3 mm calculi with mild obstruction, s/p left ureteral stent by Dr. Roach. Assessment: Left nephrolithiasis: With mild obstruction: Status post left ureteral stent. UTI Fever: Likely secondary to UTI Diabetes Seizure disorder Hypertension Morbid obesity Plan: CT abdomen pelvis w con:Left distal ureteral 3 mm calculus causes at least mild obstruction. Superimposed infection. 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
== END 2022-08-31 13:21 | disposition home or self-care (01) | DRG 660 ==
LOC: ER 08-29 01:55 → OR 08-29 02:12 → MEDSURG 08-29 04:16
PROVIDERS: Emergency Medicine; Family Medicine; Internal Medicine; Admitting Provider Urology; Emergency Provider Registered Nurse; PCP Family Medicine; Visit Provider Urology
PROC: 0TJB8ZZ Inspection of Bladder, Via Natural or Artificial Opening Endoscopic (ICD-10-PCS; CPT 52000; principal; 2022-08-29 01:55)
PROC: 0T778DZ Dilation of Left Ureter with Intraluminal Device, Via Natural or Artificial Opening Endoscopic (ICD-10-PCS; CPT 50605; 2022-08-29 01:55)
DX: N20.1 Calculus of ureter (principal); N39.0 Urinary tract infection, site not specified; Z68.42 Body mass index [BMI] 45.0-49.9, adult; J44.9 Chronic obstructive pulmonary disease, unspecified; K21.9 Gastro-esophageal reflux disease without esophagitis; I10 Essential (primary) hypertension; E78.00 Pure hypercholesterolemia, unspecified; E11.42 Type 2 diabetes mellitus with diabetic polyneuropathy; G40.909 Epilepsy, unspecified, not intractable, without status epilepticus; E66.01 Morbid (severe) obesity due to excess calories; Z79.890 Hormone replacement therapy; K59.09 Other constipation; G47.33 Obstructive sleep apnea (adult) (pediatric); Z66 Do not resuscitate
CPT/HCPCS: 36415; 36416; 71045; 74177; 76000; 80053; 81001; 81003; 82962; 83036; 83605; 83690; 84145; 85025; 87040; 87077; 87086; 87186; 87426; 87804; 94664; 96365; 96372; 96375; 99285; J0330; J0696; J1100; J1650; J2405; J2704; J3010; J7030; Q9967

== ENCOUNTER 2022-09-07 05:21 | Day surgery (SDC) | payer MEDICARE, MEDICAID, SELFPAY ==
[2022-09-06 10:17] VITALS: BMI 47.2
[2022-09-07] VITALS (14 sets, daily range): BP systolic 119–156; BP diastolic 64–101; PULSE 68–94; RESP 12–18; TEMP 36.2–36.4; O2SAT 90–100
--- NOTE | 2022-09-07 | SC_ITS ---
WS: [id number] C-arm [place] for Urology REASON FOR EXAM: pyelogram FINDINGS: Removal of left ureteral stent. Injection of contrast demonstrates normal left renal collecting syste m and ureteral pelvic junction. SC/C-arm [place] for Urology IMPRESSION: Left ureteral stent removal without abnormality.
--- NOTE | 2022-09-07 05:43 | XR_ITS ---
WS: [id number] XR KUB [id number] REASON FOR EXAM: Preop left ureteroscopy FINDINGS: Left ureteral stent in proper position. Previously demonstrated distal left ureteral calculus no longer identifiable. No other urinary tract calculi. Remainder the abdomen is unremarkable. XR/XR KUB [id number] IMPRESSION: Left ureteral stent in proper position. No urinary tract calculi identified.
--- NOTE | 2022-09-07 05:58 | P.HPUD_ITS ---
Surgery/Procedure H&P Update DATE OF PROCEDURE: September 07, 2022 DATE H&P PERFORMED: 08/28/22 H&P UPDATE INFORMATION: I have reviewed H&P completed within last 30 days, I have examined patient prior to procedure, No changes to prior documentation and H&P is in [facility] EMR on date indicated PREOP DIAGNOSIS: Left distal ureteral stone status post emergency stenting PLANNED PROCEDURE: Operation Date: 09/07/22 07:00 Proposed Procedures p CYSTOSCOPY LEFT RETROGRADE URETEROSCOPY LASER STENT [id number] [facility] 26 [id number] ,N20.1(Not Applicable) - Cali Roach MD s Retrograde Pyelogram(Left) - MD [place]l Ureteroscopy(Left) - MD [place] Laser Lithotripsy(Left) - Cali Raoch MD s Ureteral Stent Placement(Left) - Cali Roach MD
--- NOTE | 2022-09-07 06:35 | ANES.PREANE2 ---
Pre-Anesthetic Assessment Height/Weight: Height 1.57 m Weight 117.027 kg Temp Pulse Resp BP Pulse Ox O2 Del Method 97.6 F 79 18 119/87 100 09/07/22 06:05 09/07/22 06:05 09/07/22 06:05 09/07/22 06:05 09/07/22 06:05 09/07/22 06:20 Preop Diagnosis: Left distal ureteral stone status post emergency stenting Operation Date: 09/07/22 07:00 Proposed Procedures p CYSTOSCOPY LEFT RETROGRADE URETEROSCOPY LASER STENT 68144 [facility] 26 [address]40 ,N20.1(Not Applicable) - Cali Roach MD s Retrograde Pyelogram(Left) - MD [place] Chilel Ureteroscopy(Left) - Cali Roach MD s Laser Lithotripsy(Left) - Cali Roach MD s Ureteral Stent Placement(Left) - Cali Roach MD Familial anesthetic complications: NOne Was Beta Jaquan taken within 24 hours: N/A Was Clonidine taken within 24 hours: N/A Last intake: Intake Last Liquid Date 09/06/22 Last Liquid Time 21:00 Last Solid Date 09/06/22 Last Solid Time 20:00 Social No alcohol vapes Exam alert, oriented x 3, clear to auscultation bilaterally and regular rate & rhythm Airway Mallampati: Class III Dentition: false Pulmonary Chronic Obstructive Pulmonary Disease and Sleep Apnea CV/HEM Hypertension GI Gastroesophageal Reflux Disease Metabolic Diabetes Mellitus, Hyperlipidemia and Morbid Obesity Neuropsych Seizure Anesthetic Plan ASA status: 3 Anesthesia: General Risk of > 500 ml blood loss (7ml/kg in children): No Medications/Allergies Home Medications Medication Instructions Recorded Confirmed Last Taken Type docusate sodium 100 mg capsule 200 mg PO BID 03/23/21 09/06/22 09/07/22 History ferrous sulfate 325 mg (65 mg 325 mg PO BID #60 tabs 11/30/21 09/06/22 09/07/22 Rx iron) tablet lisinopril 2.5 mg tablet 2.5 mg PO DAILY #90 tabs 01/31/22 09/06/22 09/07/22 Rx duloxetine 60 mg capsule,delayed 60 mg PO DAILY #90 caps 03/22/22 09/06/22 09/07/22 Rx release atorvastatin 10 mg tablet 10 mg PO DAILY #90 tabs 04/11/22 09/06/2209/07/23 Rx estradiol 2 mg tablet 2 mg PO DAILY #90 tabs 05/05/22 09/06/22 09/07/22 Rx CPAP Supplies #1 ea 07/04/22 08/29/22 Unknown Rx ascorbic acid (vitamin C) 500 mg 500 mg PO BID 08/29/22 09/07/22 09/07/22 History tablet (Vitamin C) estradiol 0.01% (0.1 mg/gram) 1 g vaginal .TWICE A WEEK 08/29/22 09/06/22 08/31/22 History vaginal cream levetiracetam 250 mg tablet 500 mg PO BID 08/29/22 09/06/22 09/07/22 History cefuroxime axetil 500 mg tablet 500 mg PO BID 10 days #28 tabs 08/31/22 09/06/22 09/07/22 Rx dexlansoprazole 60 mg 60 mg PO DAILY #90 caps 09/05/22 09/06/22 09/06/22 Rx capsule,biphase delayed release (Dexilant) Allergies Allergy/AdvReac Type Severity Reaction Status Date / Time ciprofloxacin [From Cipro] Allergy Mild unknown Verified 08/29/22 08:20 magnesium oxide Allergy Mild unknown Verified 08/29/22 08:20 morphine Allergy Mild unknown Verified 08/29/22 08:20 Penicillins Allergy Mild unknown Verified 08/29/22 08:20 sulfabenzamide Allergy Mild unknown Verified 08/29/22 08:20 sulfamethoxazole Allergy Mild unknown Verified 08/29/22 08:20 [From Bactrim] tizanidine Allergy Mild unknown Verified 08/29/22 08:20 trimethoprim [From Bactrim] Allergy Mild unknown Verified 08/29/22 08:20 Sulfa (Sulfonamide Allergy Unknown Verified 08/29/22 08:20 Antibiotics) [facility] Anesthesia Medical History Asthma Chronic constipation COPD (chronic obstructive pulmonary disease) Family history of breast cancer in first degree relative GERD (gastroesophageal reflux disease) Hypercholesteremia Hypertension Menopausal symptoms 2011--started on estradiol by another provider 12/2017--this was my first visit with her and she was on estradiol 1 mg; increase to 1.5 mg 05/02/2019--persistent symptoms--increased estradiol to 2 mg Impression: - Because she is having continued symptoms we will increase her estradiol to 2 mg. We did have a discussion that several of her current health problems and medications could also be contributing to some of her hot flashes and night sweats and we may never get full resolution in her symptoms. We also discussed that there are different estrogen's available and while one-person may not respond to one type of estrogen, they may improve with another type. We will increase her to 2 mg and provide her with a 1 month prescription--staff will call her in 3 weeks for an update and further management pending that discussion. Mixed incontinence Morbid obesity No pertinent past medical history neghx: dvt/pe PCP: Dr. Tello Type 2 diabetes mellitus Surgical History History of anterior colporrhaphy (~04/07/21) 04/07/2021 - Anterior colporrhaphy with allograft, midurethral single incision sling, posterior colporrhaphy with cystoscopy at [place], [place] by Dr. Salazar. History of appendectomy (~02/18/10) Hx of section Hx of dilation and curettage of uterus Hx of hysterectomy (~09/22/11) CARLYLE/BSO for irregular menses. [facility], [place]. Benign pathology Hx of tonsillectomy Hx of tubal ligation Family History Mother Diabetes Breast cancer uncertain age of dx Father Diabetes Sister Diabetes Uterine cancer dx age unknown Grandmother Hypertension Maternal Hypercholesteremia Maternal Denies family history of Colon cancer Ovarian cancer Heart disease Thyroid disease Stroke Female Reproductive History Date of last menstrual period: 08/29/22 Spontaneous abortions: No Data Anesthesia Cardiac Studies: No Data to Display
[2022-09-07] MEDS: sodium chloride 0.9% 1,000 ML 30 ML IV (06:49)
--- NOTE | 2022-09-07 08:00 | P.OP_ITS ---
Operative Report Date of procedure: September 07, 2022 Pre-op diagnosis: Left distal ureteral stone status post emergency stenting Post-op diagnosis: Spontaneously passed left distal ureteral stone status post emergency stenting Procedure done: 1. Cystoscopy, removal left ureteral stent 2. LEFT retrograde, ureteroscopy Implants: LEFT ureteral stent, 4.5 [place] by 24 cm double-pigtail without string Specimens removed/disposition: None Pathology: None Surgeon: Marley Estimated blood loss: Minimal Urine output: Not measured Complications: None Findings: Anesthesia: General Condition: Stable Disposition: PACU Intraoperative findings: * Stent was removed without difficulty * Stone was confirmed by ureteroscopy and retrograde to have SPONTANEOUSLY PASSED before the procedure * There was a enough inflammation at the previous location of the stone to warrant a temporary stent. (4.5 [place] by 24 cm double-pigtail without string) Brief History: Ms. Ohara is a very pleasant 42-year-old white female who was recently stented emergently for an obstructing left distal ureteral stone with UTI. She has recovered well on antibiotic therapy both inpatient and outpatient and is back now for attempt at definitive therapy of the stone. Procedure: After routine preoperative evaluation examination and obtaining of informed consent she was taken to the operating suite on 09/07/2022 where general anesthesia was administered without difficulty after appropriate timeout was performed, SCDs confirmed to be functioning, preoperative antibiotics administered, beta-libby protocol confirmed. Prepped and draped in usual sterile fashion in dorsolithotomy position paying careful attention to avoiding pressure points. 21 [place] cystoscope with 30 degree lens was introduced into the urethra meatus and advanced into the bladder without difficulty. The bladder was systematically examined. The stent was in the expected position. No gross abnormalities were identified. No stone in the bladder. A flexible tip guidewire was then easily advanced up the left ureter next to the stent and then the stent was removed easily with grasping forceps under fluoroscopic monitoring. The wire was secured to the drapes as a safety wire. A 7 [place] offset semirigid ureteroscope was then easily advanced up the left ureter next to the safety wire. The stone was not encountered in its expected position. Scope was passed into the proximal ureter and no stone was identified. Contrast was then injected through the scope with the scope position in the distal ureter and the ureter showed no filling defects consistent with a stone seen previously nor did the upper urinary tract show any evidence of filling defects consistent with a stone. On the final passage of the scope the ureter did show enough inflammatory changes to warrant leaving a temporary stent. The cystoscope was then backloaded over the safety wire and a 4.5 [place] by 24 cm double-pigtail stent was advanced over the guidewire through the cystoscope into appropriate position as confirmed via fluoroscopy and cystoscopy. The bladder was drained after the stent was confirmed to be functioning. She tolerated procedure well without complication and was awakened in the operating room and returned to the PACU in stable condition PLANS: 1. Anticipate discharge from outpatient surgery today 2. Follow-up early next week for cystoscopy stent removal. NO ADDITIONAL RENAL STONES 3. Complete antibiotic therapy
--- NOTE | 2022-09-07 08:11 | PC.NURSE ---
SaO2 88-90 % on room air. placed om oxygen @2 liters per nc
--- NOTE | 2022-09-07 08:23 | PC.NURSE ---
SaO2 100% on 2 liters O2 per NC. Placed on room air
[2022-09-07 08:40] LABS: Glucose Point of Care 106 mg/dL (70-110)
--- NOTE | 2022-09-07 08:59 | PC.NURSE ---
Patient alert. Coughed to clear throat. Glucose was checked due to patient being sweaty.
[2022-09-07] MEDS: HYDROcodone-acetaminophen 5-325 mg Tablet 1 TAB PO (09:19)
--- NOTE | 2022-09-07 13:35 | ANE.PACU2 ---
Inpatient post-anesthesia follow up: Airway intact: Yes Vital signs: Temperature 97.2 F Pulse Rate 68 Respiratory Rate 16 Blood Pressure 142/94 Pulse Oximetry 94 Oxygen Delivery Me thod Room Air Oxygen Flow Rate 2 Fraction of Inspir ed Oxygen Hydration adequate: Yes Nausea and vomiting: No Pain level: 1 Mental status: Baseline
== END 2022-09-07 10:00 | disposition home or self-care (01) ==
PROVIDERS: PCP Family Medicine; Visit Provider Urology
PROC: 0TJB8ZZ Inspection of Bladder, Via Natural or Artificial Opening Endoscopic (ICD-10-PCS; CPT 52000; principal; 2022-09-07 07:00)
PROC: (CPT 74420; 2022-09-07 07:00)
PROC: 0TJ98ZZ Inspection of Ureter, Via Natural or Artificial Opening Endoscopic (ICD-10-PCS; CPT 52351; 2022-09-07 07:00)
PROC: (CPT 50605; 2022-09-07 07:00)
PROC: (CPT 52310; 2022-09-07 07:00)
DX: N20.1 Calculus of ureter (principal); J44.9 Chronic obstructive pulmonary disease, unspecified; G47.30 Sleep apnea, unspecified; I10 Essential (primary) hypertension; K21.9 Gastro-esophageal reflux disease without esophagitis; E11.9 Type 2 diabetes mellitus without complications; E78.5 Hyperlipidemia, unspecified; E66.01 Morbid (severe) obesity due to excess calories; Z68.42 Body mass index [BMI] 45.0-49.9, adult
CPT/HCPCS: 52332; 52351; 36416; 74018; 76000; 82962; C2625; J1100; J1200; J2250; J2405; J2704; J2710; J3010; J3490; J7030

== ENCOUNTER → 2022-09-14 12:10 | Outpatient (BNVA) | payer MEDICARE, MEDICAID, SELFPAY | PROVIDERS: PCP Family Medicine; Visit Provider Urology | DX: N39.0 Urinary tract infection, site not specified (principal); Z96.0 Presence of urogenital implants; N20.1 Calculus of ureter | CPT/HCPCS: 52310; 81003 ==

== ENCOUNTER 2023-02-01 13:08 | Outpatient (CLI) | payer MEDICARE, MEDICAID, SELFPAY ==
--- NOTE | 2023-02-01 13:40 | XR_ITS ---
WS: [id number] KUB, AP view, 02/01/2023 Clinical Data: STONES Comparison: KUB, 09/07/2022 Findings: No abnormal intraabdominal masses or calcifications are seen. There is no dilatated small bowel or ev idence of obstruction. The bladder is full. XR/XR KUB [id number] Impression: Negative KUB.
[2023-02-01 13:50] LABS: Basophils # 0.1 10^3/uL (0.0-0.1); Basophils % 0.5 %; Eosinophils # 0.4 10^3/uL (0.0-0.8); Eosinophils % 3.5 %; Hematocrit 41.7 % (37.0-47.0); Hemoglobin 13.3 g/dL (11.5-15.3); Lymphocytes # 3.9 10^3/uL (0.8-4.8); Lymphocytes % 35.3 %; Mean Corpuscular HGB Conc 31.9 g/dL (30.0-36.0); Mean Corpuscular Volume 93.9 fl (81-99); Mean Platelet Volume 10.2 fL (7.4-10.4); Monocytes # 0.6 10^3/uL (0.2-0.9); Monocytes % 5.8 %; Neutrophils # 5.96 10^3/uL (1.8-7.7); Neutrophils % 54.4 %; Nucleated Red Blood Cells % 0 %; Platelet Count 362 10^3/cmm (130-400); Red Blood Count 4.44 10^6/uL (4.1-5.3); Red Cell Distribution Width 12.6 % (12.1-15.1)
[2023-02-01 14:05] LABS: Estmated Average Glucose 137; Hemoglobin A1C 6.4 % (4.0-6.0)
[2023-02-01 14:24] LABS: Alanine Aminotransferase 22 U/L (0-33); Albumin Level 3.7 g/dL (3.5-5.2); Alkaline Phosphatase 103 U/L (35-105); Aspartate Amino Transferase 27 U/L (0-32); Blood Urea Nitrogen 7 mg/dL (6-20); Carbon Dioxide 21 mmol/L (22-29); Chloride 100 mmol/L (98-107); Chol HDL Ratio 2.85 mg/dL (0.0-4.40); Cholesterol 151 mg/dL (0-200); Globulin 3.4 g/dL (1.3-4.6); Glomerular Filtration Rate 173.4 mL/min (90-130); Glucose 95 mg/dL (65-115); HDL Cholesterol 53 mg/dL (60-100); LDL Cholesterol Calculated 74 mg/dL (50-129); Osmolality Calculated 278 mOsm/kg (285-295); Sodium 135 mmol/L (136-145); Thyroid Stimulating Hormone 1.36 uIU/mL (0.27-4.20); Total Bilirubin 0.4 mg/dL (0.15-1.2); Total Protein 7.1 g/dL (6.6-8.7); Triglycerides 118 mg/dL (0-150)
[2023-02-01 14:34] LABS: Anion Gap 18.1 (5-19); Potassium 4.1 mmol/L (3.5-5.1)
[2023-02-01 15:21] LABS: 25 Hydroxy Vitamin D 32 ng/mL (30-100)
[2023-02-08 11:49] LABS: Vitamin A (Retinol) 44 mcg/dL (38-98)
== END 2023-02-01 13:09 | disposition home or self-care (01) ==
PROVIDERS: PCP Family Medicine; Visit Provider Family Medicine
DX: N20.1 Calculus of ureter (principal); G47.19 Other hypersomnia; G47.33 Obstructive sleep apnea (adult) (pediatric); I10 Essential (primary) hypertension; E11.42 Type 2 diabetes mellitus with diabetic polyneuropathy
CPT/HCPCS: 74018; 80053; 80061; 81003; 82306; 83036; 84443; 84590; 85025; 99213

== ENCOUNTER 2023-02-01 13:12 | Outpatient (CLI) | payer MEDICARE, MEDICAID, SELFPAY | END 2023-02-01 13:13 | disposition home or self-care (01) | PROVIDERS: PCP Family Medicine; Visit Provider Urology | DX: Z87.440 Personal history of urinary (tract) infections (principal); Z87.442 Personal history of urinary calculi | CPT/HCPCS: 81003; 99213 ==

== ENCOUNTER → 2023-02-15 15:55 | Outpatient (BNVA) | payer MEDICARE, MEDICAID, SELFPAY | PROVIDERS: PCP Family Medicine; Visit Provider Emergency Medicine | DX: S93.402A Sprain of unspecified ligament of left ankle, initial encounter (principal); X58.XXXA Exposure to other specified factors, initial encounter | CPT/HCPCS: 73610 ==

== ENCOUNTER → 2023-03-06 08:57 | Outpatient (BNVA) | payer BC, MEDICAID, SELFPAY | PROVIDERS: PCP Family Medicine; Visit Provider Specialist | DX: M25.572 Pain in left ankle and joints of left foot (principal) | CPT/HCPCS: 73610 ==

== ENCOUNTER 2023-03-31 10:30 | Outpatient (CLI) | payer MEDICARE, MEDICAID, SELFPAY ==
--- NOTE | 2023-03-31 11:00 | MR_ITS ---
WS: [id number] EXAMINATION: MR ankle LT wo con* [id number] ORDER DATE: 03/31/2023 10:57 AM COMPARISON: None. HISTORY: left ankle pain CONTRAST: None. TECHNIQUE: Axial proton density fat sat, axial T1, sagittal proton density, sagittal STIR, coronal T2 fat sat, and coronal T1 sequences performed. FINDINGS: Distal Achilles is normal in appearance. Normal bone marrow signal in the calcaneus and talus. Normal talocalcaneal articulation. Normal ankle mortise. Mild diffuse soft tissue edema lower leg and ankle . Normal medial and lateral malleolus. Normal cuboid. Normal talus. Normal talonavicular articulation . Normal cuneiforms. Normal peroneal tendons. Trace tenosynovitis along the tibialis posterior. Diminutive extensor halluc is longus with tiny tendon and muscle belly may be due to prior injury. Tenosynovitis involving the e xtensor digitorum longus. ATFL appears intact. PTFL appears intact. Tiny plantar calcaneal spur. Normal bone marrow signal in the calcaneus. Normal plantar aponeurosis. MR/MR ankle LT wo con* [id number] IMPRESSION: 1. Normal ankle mortise. No acute fractures. 2. Subcutaneous edema lower leg and ankle. 3. Distal Achilles appears intact. 4. Normal ATFL. 5. Normal peroneal longus and brevis tendons. 6. Somewhat diminutive extensor hallucis longus with tiny tendon and atrophic muscle belly likely due to prior injury. 7. Trace tenosynovitis along the extensor digitorum longus.
== END 2023-03-31 10:31 | disposition home or self-care (01) ==
PROVIDERS: PCP Family Medicine; Visit Provider Specialist
DX: M25.572 Pain in left ankle and joints of left foot (principal); R60.0 Localized edema
CPT/HCPCS: 73721

== ENCOUNTER 2023-04-12 15:40 | Outpatient (CLI) | payer MEDICARE, MEDICAID, SELFPAY | END 2023-04-12 15:41 | disposition home or self-care (01) | LOC: SPT 15:41 | PROVIDERS: PCP Family Medicine; Visit Provider Specialist | DX: Z46.89 Encounter for fitting and adjustment of other specified devices (principal); M25.572 Pain in left ankle and joints of left foot; S99.912D Unspecified injury of left ankle, subsequent encounter; W50.0XXD Accidental hit or strike by another person, subsequent encounter | CPT/HCPCS: 97760; 99213; L1902 ==

== ENCOUNTER → 2023-05-05 12:45 | Outpatient (BNVA) | payer MEDICARE, MEDICAID, SELFPAY | PROVIDERS: PCP Family Medicine; Visit Provider Podiatrist Foot & Ankle Surgery | DX: E11.42 Type 2 diabetes mellitus with diabetic polyneuropathy (principal); S93.402A Sprain of unspecified ligament of left ankle, initial encounter; W50.0XXA Accidental hit or strike by another person, initial encounter | CPT/HCPCS: 99203 ==

== ENCOUNTER 2023-05-22 11:29 | Outpatient (RCR) | payer MEDICARE, MEDICAID, SELFPAY | END 2023-05-27 23:59 | disposition home or self-care (01) | LOC: SPT 11:29 | PROVIDERS: Visit Provider Podiatrist Foot & Ankle Surgery | DX: S93.402D Sprain of unspecified ligament of left ankle, subsequent encounter (principal); X58.XXXD Exposure to other specified factors, subsequent encounter | CPT/HCPCS: 97161 ==

== ENCOUNTER 2023-05-28 06:00 | Outpatient (RCR) | payer MEDICARE, MEDICAID, SELFPAY | END 2023-06-20 23:59 | disposition home or self-care (01) | LOC: SPT 06:00 | PROVIDERS: Visit Provider Podiatrist Foot & Ankle Surgery | DX: S93.402D Sprain of unspecified ligament of left ankle, subsequent encounter (principal); X58.XXXD Exposure to other specified factors, subsequent encounter | CPT/HCPCS: 97110; 97112; L3030 ==

== ENCOUNTER → 2023-07-05 10:23 | Outpatient (BNVA) | payer MEDICARE, MEDICAID, SELFPAY | PROVIDERS: Visit Provider Family Medicine | DX: K64.4 Residual hemorrhoidal skin tags (principal); E78.00 Pure hypercholesterolemia, unspecified; I10 Essential (primary) hypertension | CPT/HCPCS: 80053; 83036 ==

== ENCOUNTER → 2023-07-10 13:16 | Outpatient (BNVA) | payer MEDICARE, MEDICAID, SELFPAY | PROVIDERS: Visit Provider Podiatrist Foot & Ankle Surgery | DX: E11.42 Type 2 diabetes mellitus with diabetic polyneuropathy (principal); S93.402A Sprain of unspecified ligament of left ankle, initial encounter; X58.XXXA Exposure to other specified factors, initial encounter | CPT/HCPCS: 99213 ==

== ENCOUNTER 2023-09-06 10:23 | Outpatient (CLI) | payer MEDICARE, SELFPAY ==
--- NOTE | 2023-09-06 10:45 | MM_ITS ---
WS: [id number] SCREENING DIGITAL BREAST TOMOSYNTHESIS MAMMOGRAM WITH CAD HISTORY: Z12.31 - Encounter for screening mammogram for malignant ... COMPARISON: 07/29/2022, 06/22/2020 and 01/23/2009 Bilateral CC and MLO with tomosynthesis and synthetic mammography submitted. Computer aided detection analyzed. Breast composition: There are scattered areas of fibroglandular density. There is a new well-circumsc ribed 7 x 4 mm ovoid mass in the medial RIGHT breast near 3:00. Additional benign calcifications LEFT breast. IMPRESSION: MM/[place] [id number] BI-RADS: 0-Incomplete: Need additional imaging evaluation FOLLOW UP: Need Additional Imaging Recommendation: RIGHT breast ultrasound, limited.
== END 2023-09-06 10:24 | disposition home or self-care (01) ==
LOC: RAD 10:23
PROVIDERS: PCP Family Medicine; Visit Provider Nurse Practitioner Women's Health
DX: Z12.31 Encounter for screening mammogram for malignant neoplasm of breast (principal)
CPT/HCPCS: 77063; 77067

== ENCOUNTER 2023-09-26 09:37 | Outpatient (CLI) | payer MEDICARE, MEDICAID, SELFPAY ==
--- NOTE | 2023-09-26 10:00 | US_ITS ---
WS: [id number] ULTRASOUND RIGHT BREAST HISTORY: New nodule RIGHT breast seen on mammogram. COMPARISON: Mammogram 09/06/2023 TECHNIQUE: 2-D and Doppler. There is a simple cyst RIGHT breast 2:00, 3 cm from nipple measuring 3 x 4 x 4 mm which is similar si ze, shape and location to the mammographic abnormality. No solid mass. IMPRESSION: US/US breast RT limited* [id number] BI-RADS: 2-Benign FOLLOW-UP: 1 Year Follow-up Mammographic abnormality corresponds to a simple cyst in the RIGHT breast. Retu rn to annual screening mammography.
== END 2023-09-26 09:38 | disposition home or self-care (01) ==
LOC: RAD 09:37
PROVIDERS: PCP Family Medicine; Visit Provider Nurse Practitioner Women's Health
DX: N60.01 Solitary cyst of right breast (principal)
CPT/HCPCS: 76642

== ENCOUNTER → 2024-03-12 15:04 | Outpatient (BNVA) | payer BC, MEDICAID, SELFPAY | PROVIDERS: PCP Family Medicine; Visit Provider Family Medicine | DX: R79.89 Other specified abnormal findings of blood chemistry (principal); I10 Essential (primary) hypertension; E55.9 Vitamin D deficiency, unspecified; E78.00 Pure hypercholesterolemia, unspecified; E11.9 Type 2 diabetes mellitus without complications | CPT/HCPCS: 80053; 80061; 82306; 82607; 83036; 84443; 85025 ==

== ENCOUNTER → 2024-06-13 16:00 | Outpatient (BNVA) | payer BC, OTHER, SELFPAY | PROVIDERS: PCP Family Medicine; Visit Provider Nurse Practitioner Women's Health | DX: R35.0 Frequency of micturition (principal) | CPT/HCPCS: 81000; 87086 ==

== ENCOUNTER 2024-06-19 11:07 | Outpatient (CLI) | payer BC, OTHER, SELFPAY ==
[2024-06-19 12:21] LABS: Estmated Average Glucose 134; Hemoglobin A1C 6.3 % (4.0-6.0)
[2024-06-19 12:30] LABS: Alanine Aminotransferase 27 U/L (0-33); Albumin Level 3.9 g/dL (3.5-5.2); Alkaline Phosphatase 98 U/L (35-105); Anion Gap 15.2 (5-19); Aspartate Amino Transferase 35 U/L (0-32); Blood Urea Nitrogen 6 mg/dL (6-20); Calcium 8.7 mg/dL (8.5-10.5); Carbon Dioxide 27 mmol/L (22-29); Chloride 100 mmol/L (98-107); Free T4 Free Thyroxine 1.44 ng/dL (0.82-1.77); Globulin 3.2 g/dL (1.3-4.6); Glomerular Filtration Rate 133.4 mL/min (90-130); Glucose 177 mg/dL (65-115); Osmolality Calculated 288 mOsm/kg (285-295); Potassium 4.2 mmol/L (3.5-5.1); Sodium 138 mmol/L (136-145); Thyroid Stimulating Hormone 0.01 uIU/mL (0.27-4.20); Total Bilirubin 0.5 mg/dL (0.15-1.2); Total Protein 7.1 g/dL (6.6-8.7)
[2024-06-19 13:01] LABS: 25 Hydroxy Vitamin D 32 ng/mL (30-100)
== END 2024-06-19 11:08 | disposition home or self-care (01) ==
LOC: LAB 11:08
PROVIDERS: PCP Family Medicine; Visit Provider Family Medicine
DX: R79.89 Other specified abnormal findings of blood chemistry (principal); E11.9 Type 2 diabetes mellitus without complications; Z86.39 Personal history of other endocrine, nutritional and metabolic disease
CPT/HCPCS: 36415; 80053; 82306; 83036; 84439; 84443; 86376

== ENCOUNTER → 2024-08-16 14:05 | Outpatient (BNVA) | payer BC, MEDICAID, OTHER, SELFPAY | PROVIDERS: PCP Family Medicine; Visit Provider Family Medicine | DX: E06.3 Autoimmune thyroiditis (principal) | CPT/HCPCS: 84439; 84443 ==

== ENCOUNTER 2024-09-30 10:22 | Outpatient (CLI) | payer MEDICAID, OTHER, SELFPAY ==
--- NOTE | 2024-09-30 10:30 | MM_ITS ---
WS: [id number] BILATERAL SCREENING DIGITAL TOMOSYNTHESIS MAMMOGRAM WITH CAD HISTORY: SCREENING COMPARISON: Ultrasound 09/26/2023, mammogram 09/06/2023, 07/29/2022 Bilateral CC and MLO views with tomosynthesis and synthetic mammography submitted. Computer aided det ection analyzed. Breast composition: There are scattered areas of fibroglandular density. No suspicious masses, microc alcifications or architectural distortion. Reidentified is a 4 x 3 x 5 mm mass in the medial RIGHT br east at 2:00 as noted on a prior mammogram and ultrasound. This was a cyst on prior ultrasound. No grayson spicious calcifications. MM/MM scr BI tomosynthesis [id number] IMPRESSION: BI-RADS: 2 - Benign. FOLLOW UP: 1 Year Follow-up
== END 2024-09-30 10:23 | disposition home or self-care (01) ==
PROVIDERS: PCP Family Medicine; Visit Provider Nurse Practitioner Women's Health
DX: Z12.31 Encounter for screening mammogram for malignant neoplasm of breast (principal); R92.323 Mammographic fibroglandular density, bilateral breasts; N63.12 Unspecified lump in the right breast, upper inner quadrant
CPT/HCPCS: 77063; 77067

== ENCOUNTER 2024-10-21 15:33 | Outpatient (CLI) | payer OTHER, MEDICAID, SELFPAY ==
[2024-10-21 16:13] LABS: Estmated Average Glucose 131; Hemoglobin A1C 6.2 % (4.0-6.0)
[2024-10-21 16:31] LABS: Thyroid Stimulating Hormone 0.36 uIU/mL (0.27-4.20)
== END 2024-10-21 15:34 | disposition home or self-care (01) ==
LOC: LAB 15:37
PROVIDERS: PCP Family Medicine; Visit Provider Family Medicine
DX: E11.9 Type 2 diabetes mellitus without complications (principal); E06.3 Autoimmune thyroiditis
CPT/HCPCS: 83036; 84443

== ENCOUNTER 2024-10-27 12:51 | Emergency (ER) | payer MEDICARE, MEDICAID, SELFPAY ==
[2024-10-27 13:10] VITALS: BP 137/82; PULSE 99; RESP 18; TEMP 37.7; O2SAT 99; BMI 47.7
[2024-10-27 14:10] LABS: Influenza A POSITIVE (Negative); Influenza B NEGATIVE (Negative); Respiratory Syncytial Virus Ce NEGATIVE (Negative); SARS-CoV-2 PCR NEGATIVE (Negative)
--- NOTE | 2024-10-27 14:34 | XRR_ITS ---
PROCEDURE INFORMATION: Exam: XR Chest Exam date and time: 10/27/2024 3:00 PM Age: 44 years old Clinical indication: Cough TECHNIQUE: Imaging protocol: Radiologic exam of the chest. Views: 1 view. COMPARISON: CR (CHEST, ) 10/27/2024 1:57 PM FINDINGS: Lungs: Unremarkable. No consolidation. Pleural spaces: Unremarkable. No pleural effusion. No pneumothorax. Heart/Mediastinum: Unremarkable. No cardiomegaly. Bones/joints: Unremarkable. XR/XR chest 1V portable [id number] IMPRESSION: No acute findings.
[2024-10-27 14:47] VITALS: BP 143/100; PULSE 104; RESP 20; O2SAT 99
[2024-10-27] MEDS: acetaminophen 500 mg Tablet 1000 MG PO (14:48)
[2024-10-27 14:51] VITALS: O2SAT 99
--- NOTE | 2024-10-27 15:06 | W.ED.COVID ---
HPI - COVID General: Chief Complaint: COVID symptoms Stated Complaint: high fever Time Seen by Provider: 10/27/24 14:45 History of Present Illness: Patient presents emergency room with flulike symptoms that started last night. She has had cough. Fever. Nausea. Vomiting and headache. Malaise. No altered mental status. No chest pain. COVID Results: SARS-CoV-2 Ag (Rapid) negative (Negative) 08/28/22 22:46 08/28/22 SARS-CoV-2 RNA (RT-PCR) Not detected (NOT DETECTED) 04/02/21 12:59 04/02/21 SARS-CoV-2 (PCR) Negative (Negative) 10/27/24 13:15 10/27/24 Related Data Home Medications ?Medication ?Instructions ?Recorded ?Confirmed docusate sodium 100 mg capsule 200 mg PO BID 03/23/21 10/21/24 ascorbic acid (vitamin C) 500 mg 500 mg PO BID 08/29/22 10/21/24 tablet (Vitamin C) cholecalciferol (vitamin D3) 25 25 mcg PO DAILY 06/19/24 10/21/24 mcg (1,000 unit) capsule Previous Rx's ?Medication ?Instructions ?Recorded hydrocortisone 2.5 % topical cream 1 applic NV DAILY PRN hemorrhoids 07/05/23 with perineal applicator #30 grams (Anusol-HC) levetiracetam 250 mg tablet See Rx Instructions .Route 02/20/24 .COMPLEX #360 tabs estradiol 2 mg tablet 2 mg PO DAILY #90 tabs 06/11/24 atorvastatin 10 mg tablet See Rx Instructions .Route 06/19/24 .COMPLEX #90 tabs famotidine 20 mg tablet (Pepcid AC) 20 mg PO DAILY PRN acid reflux #60 06/19/24 tabs hydrocortisone 1 % topical cream 1 applic topical TID PRN skin 06/19/24 irritation 2 weeks #28.35 grams lisinopril 2.5 mg tablet See Rx Instructions .Route 06/19/24 .COMPLEX #90 tabs estradiol 0.01% (0.1 mg/gram) 1 g vaginal .three times/week #3 07/09/24 vaginal cream (Estrace) tubes amitriptyline 50 mg tablet 50 mg PO BEDTIME #30 tabs 07/11/24 propranolol 10 mg tablet 10 mg PO BID #60 tabs 07/11/24 oxybutynin chloride 5 mg tablet 5 mg PO BID #60 tabs 07/22/24 fluticasone propionate 50 2 spray intranasal DAILY #16 grams 08/08/24 mcg/actuation nasal spray,suspension (Flonase Allergy Relief) levothyroxine 50 mcg tablet 50 mcg PO DAILY #90 tabs 10/21/24 polyethylene glycol 3350 17 34 g PO DAILY #510 grams 10/21/24 gram/dose oral powder (Miralax) sennosides 8.6 mg tablet (Senna 8.6 mg PO DAILY PRN constipation 10/21/24 Laxative) #30 tabs dexamethasone 6 mg tablet 6 mg PO DAILY 5 days #5 tabs 10/27/24 diclofenac sodium 50 mg 50 mg PO BID PRN pain #14 tabs 10/27/24 tablet,delayed release ondansetron 8 mg disintegrating 8 mg PO Q6H #14 tabs 10/27/24 tablet Allergies Allergy/AdvReac Type Severity Reaction Status Date / Time ciprofloxacin (From Cipro) Allergy Severe ALGY-Hives Verified 10/21/24 14:18 magnesium oxide Allergy Severe ALGY-Hives Verified 10/21/24 14:18 morphine Allergy Severe ADR-Seizure Verified 10/21/24 14:18 Penicillins Allergy Severe ALGY-Rash Verified 10/21/24 14:18 Sulfa (Sulfonamide Allergy Severe ALGY-Rash Verified 10/21/24 14:18 Antibiotics) sulfabenzamide Allergy Severe ALGY-Rash Verified 10/21/24 14:18 sulfamethoxazole (From Allergy Severe ALGY-Hives Verified 10/21/24 14:18 Bactrim) tizanidine Allergy Severe ADV-Weaknes Verified 10/21/24 14:18 s trimethoprim (From Bactrim) Allergy Severe ALGY-Rash Verified 10/21/24 14:18 Review of Systems Narrative: Constitutional symptoms: Negative except as documented in HPI. Skin symptoms: Negative except as documented in HPI. Eye symptoms: Negative except as documented in HPI. ENMT symptoms: Negative except as documented in HPI. Respiratory symptoms: Negative except as documented in HPI. Cardiovascular symptoms: Negative except as documented in HPI. Gastrointestinal symptoms: Negative except as documented in HPI. Genitourinary symptoms: Negative except as documented in HPI. Musculoskeletal symptoms: Negative except as documented in HPI. Neurologic symptoms: Negative except as documented in HPI. Psychiatric symptoms: Negative except as documented in HPI. Endocrine symptoms: Negative except as documented in HPI. PFSH ED PFSH: Medical History Nicotine dependence, cigarettes, uncomplicated Bronson thyroiditis Tobacco use disorder Dependent edema Insomnia Major depressive disorder, recurrent episode, moderate with anxious distress Mild intellectual disabilities Generalized anxiety disorder Psychiatric care Functional neurological symptom disorder with attacks or seizures Family history of breast cancer in first degree relative Menopausal symptoms Chronic constipation Mixed incontinence Hypertension Type 2 diabetes mellitus GERD (gastroesophageal reflux disease) COPD (chronic obstructive pulmonary disease) Surgical History S/P ureteral stent placement History of anterior colporrhaphy (~04/07/21) 04/07/2021 - Anterior colporrhaphy with allograft, midurethral single incision sling, posterior colporrhaphy with cystoscopy at [place], [place] by Dr. Salazar. Hx of tonsillectomy Hx of section Hx of dilation and curettage of uterus Hx of tubal ligation History of appendectomy (~02/18/10) Hx of hysterectomy (~09/22/11) CARLYLE/BSO for irregular menses. [facility] [place] [facility] [place] [facility]. Benign pathology Family History Mother Diabetes Breast cancer uncertain age of dx Father , IN HIS LATE 60'S Diabetes Sister Diabetes Uterine cancer dx age unknown Grandmother Hypertension Maternal Hypercholesteremia Maternal Denies family history of Colon cancer Ovarian cancer Heart disease Thyroid disease Stroke Social History Smoking and tobacco/nicotine status: unknown if used tobacco/nicotine Alcohol intake: never Substance/Drug Use: never Marital status: Life Partner Current occupational status: disabled Female Reproductive History: Spontaneous abortions: No Physical Exam Narrative: EXAM NARRATIVE: General: Alert, no acute distress. Skin: Warm, dry. Head: Normocephalic, atraumatic. Neck: Supple, trachea midline. Eye: Extraocular movements are intact. Ears, nose, mouth and throat: mucosa moist. Cardiovascular: Regular, Normal peripheral perfusion. Respiratory: Lungs are clear to auscultation, respirations are non-labored, breath sounds are equal, Symmetrical chest wall expansion. Gastrointestinal: Soft, Nontender, Non distended Musculoskeletal: Normal ROM, no deformity. Neurological: Alert and oriented, No focal neurological deficit observed. Psychiatric: Cooperative, appropriate mood & affect. Course Vital Signs: Vital signs: Vital Signs Temperature 99.8 F H 10/27/24 13:10 Pulse Rate 104 H 10/27/24 14:47 Respiratory Rate 20 H 10/27/24 14:47 Blood Pressure 143/100 10/27/24 14:47 Pulse Oximetry 99 10/27/24 14:51 Oxygen Delivery Me thod Room Air 10/27/24 14:51 MDM - COVID Medical Decision Making Chest x-ray: No acute process. No infiltrate. No pneumothorax. This was reviewed and interpreted by myself the emergency room physician. I also reviewed the radiology report. Patient is influenza positive. Assessment and plan: Influenza A ?P.o. Zofran and IM Toradol in the emergency room. - Discharged home - Discussed plan with patient. Answered any questions. - Evaluation and treatment of this problem were appropriate in the emergency setting. Lab Data Laboratory Results Influenza A (PCR) Positive (Negative) 10/27/24 13:15 Influenza Type B (PCR) Negative (Negative) 10/27/24 13:15 RSV (PCR) Negative (Negative) 10/27/24 13:15 SARS-CoV-2 (PCR) Negative (Negative) 10/27/24 13:15 SARS-CoV-2 Ag (Rapid) negative (Negative) 08/28/22 22:46 08/28/22 SARS-CoV-2 RNA (RT-PCR) Not detected (NOT DETECTED) 04/02/21 12:59 04/02/21 SARS-CoV-2 (PCR) Negative (Negative) 10/27/24 13:15 10/27/24 All radiology interpretation(s) finalized by discharge Discharge Plan Discharge Patient Disposition: Home Clinical Impression: Influenza A Condition: Stable Prescriptions: New dexamethasone 6 mg tablet 6 mg PO DAILY 5 Days Qty: 5 0RF diclofenac sodium 50 mg tablet,delayed release (DR/EC) 50 mg PO BID PRN (Reason: pain) Qty: 14 0RF ondansetron 8 mg tablet,disintegrating 8 mg PO Q6H Qty: 14 0RF Rx Instructions: Take 1/2-1 tab every 6 hours as needed for nausea and vomiting No Action docusate sodium 100 mg capsule 200 mg PO BID estradiol 2 mg tablet 2 mg PO DAILY Qty: 90 3RF oxybutynin chloride 5 mg tablet 5 mg PO BID Qty: 60 5RF sennosides [Senna Laxative] 8.6 mg tablet 8.6 mg PO DAILY PRN (Reason: constipation) Qty: 30 1RF polyethylene glycol 3350 [Miralax] 17 gram/dose powder 34 g PO DAILY Qty: 510 0RF levetiracetam 250 mg tablet See Rx Instructions .ROUTE .COMPLEX Qty: 360 3RF Dose Instruction: TAKE 2 TABLETS BY MOUTH ONCE DAILY IN THE MORNING AND 2 ONCE DAILY IN THE EVENING Rx Instructions: TAKE 2 TABLETS BY MOUTH ONCE DAILY IN THE MORNING AND 2 ONCE DAILY IN THE EVENING hydrocortisone [Anusol-HC] 2.5 % cream with perineal applicator 1 applic NV DAILY PRN (Reason: hemorrhoids) Qty: 30 1RF Rx Instructions: May use 2x a day for one week or until symptoms improve. amitriptyline 50 mg tablet 50 mg PO BEDTIME Qty: 30 6RF Rx Instructions: Take one tablet at bedtime propranolol 10 mg tablet 10 mg PO BID Qty: 60 6RF Rx Instructions: Take one tablet twice per day cholecalciferol (vitamin D3) 25 mcg (1,000 unit) capsule 25 mcg PO DAILY famotidine [Pepcid AC] 20 mg tablet 20 mg PO DAILY PRN (Reason: acid reflux) Qty: 60 1RF atorvastatin 10 mg tablet See Rx Instructions .ROUTE .COMPLEX Qty: 90 3RF Dose Instruction: Take 1 tablet by mouth once daily Rx Instructions: Take 1 tablet by mouth once daily lisinopril 2.5 mg tablet See Rx Instructions .ROUTE .COMPLEX Qty: 90 1RF Dose Instruction: Take 1 tablet by mouth once daily Rx Instructions: Take 1 tablet by mouth once daily hydrocortisone 1 % cream 1 applic topical TID PRN (Reason: skin irritation) 14 Days Qty: 28.35 0RF fluticasone propionate [Flonase Allergy Relief] 50 mcg/actuation spray,suspension 2 spray intranasal DAILY Qty: 16 0RF Rx Instructions: administer into each nostril estradiol [Estrace] 0.01 % (0.1 mg/gram) cream 1 g vaginal .three times/week Qty: 3 3RF Rx Instructions: space out doses levothyroxine 50 mcg tablet 50 mcg PO DAILY Qty: 90 1RF ascorbic acid (vitamin C) [Vitamin C] 500 mg Tablet 500 mg PO BID Discharge Orders: Discharge ED (Routine); Ordered 10/27/24 Ordered By: Blanca Billy Referrals: Darío Sawyer MD [Primary Care Provider] - Discharge Diet: Usual diet Discharge Activity: Increase activity as tolerated Patient Instructions: Influenza (ED), Opioid Safety, Pain Management Activity Restrictions/Additional Instructions: Thank you for choosing [facility] for your healthcare needs today. Please realize this is an emergency room and that we are providing you with a medical screening exam and this may not be complete and all inclusive of all the testing and or work up that you may need to determine your ailment or severity of your illness. You have been screened and evaluated and felt safe for discharge. Health conditions do change or evolve sometimes and as such it is important that you follow up with your Primary Doctor to be re checked, 3-5 days is a general good time frame for follow up. You are always welcome to return to the ED for re assessment if your symptoms are worsening or you have new concerns Print Language: Spanish Coding Level of Care Code ED Sharepoint Solutions Architect for Robert Bonilla
[2024-10-27] MEDS: ketorolac 60 mg/2 mL INJ IM (15:18)
== END 2024-10-27 15:26 | disposition home or self-care (01) ==
PROVIDERS: Emergency Medicine; Emergency Provider Emergency Medicine; PCP Family Medicine
DX: J10.1 Influenza due to other identified influenza virus with other respiratory manifestations (principal); Z11.52 Encounter for screening for COVID-19; E11.9 Type 2 diabetes mellitus without complications; I10 Essential (primary) hypertension; J44.9 Chronic obstructive pulmonary disease, unspecified
CPT/HCPCS: 71045; 87637; 96372; 99284; J1885

== ENCOUNTER → 2024-11-24 11:21 | Outpatient (BNVA) | payer MEDICARE, MEDICAID, SELFPAY | PROVIDERS: PCP Family Medicine; Visit Provider Registered Nurse Neonatal Intensive Care | DX: M79.671 Pain in right foot (principal) | CPT/HCPCS: 73630 ==

== ENCOUNTER 2025-05-08 17:26 | Emergency (ER) | payer MEDICARE, MEDICAID, SELFPAY ==
--- OUTSIDE RECORDS SUMMARY | 2025-05-08 17:32 | XMS_ITS | Clinical Summary ---
Author Organization [facility] Address [address] [place] [address] Care Team Providers Care Division Engineer Name Role Phone Unavailable Primary Care Provider Unavailabl e Allergies Active Allergy Reactions Criticality Noted Date Comments Ciprofloxacin Unknown 02/01/2017 Mag Ae-Ohrpthj-Sqkjvjufp-E-Sammy Unknown 02/01 Morphine Unknown 02/01/2017 Penicillins Unknown 02/01/2017 Sulfa (Sulfonamide Antibiotics) Unknown 02/2017 Sulfamethoxazole-Trimethoprim Unknown 2016 Tizanidine Unknown 02/01/2017 Medications budesonide-form oterol (SYMBICORT) 160-4.5 mcg/actuation HFA Aerosol Inhaler Take 2 Puffs by inhalation 2 times daily. Active levalbuterol HFA (XOPENEX HFA) 45 mcg/Actuation HFA Aerosol Inhaler Take by inhalation every 6 hours. Active venlafaxine (EFFEXOR) 75 mg tablet Take 75 mg by mouth 3 times daily. Active atorvastatin (LIPITOR) 10 mg tablet Take 10 mg by mouth late in the day. Active ferrous sulfate 325 mg (65 mg iron) tablet Take 325 mg by mouth daily. Active estradiol (ESTRACE) 1 mg tablet Take 1 mg by mouth daily. Active omeprazole (PriLOSEC) 20 mg Capsule, Delayed Release(E.C.) Take 20 mg by mouth daily. Active oxybutynin chloride (DITROPAN XL) 10 mg Extended Release 24 hour tablet Take 10 mg by mouth daily. Active propranolol (INDERAL) 80 mg tablet Take 80 mg by mouth 3 times daily. Active lisinopril (PRINIVIL) 2.5 mg tablet Take 2.5 mg by mouth daily. Active metFORMIN (GLUCOPHAGE) 500 mg tablet Take 500 mg by mouth 2 times daily with meals. Active sennosides-docu sate sodium (SENNALAX-S) 8.6-50 mg tablet Take 1 Tablet by mouth daily. Active ascorbic acid, vitamin C, (VITAMIN C) 500 mg tablet Take 500 mg by mouth daily. Active aspirin (ECOTRIN EC) 81 mg Tablet, Delayed Release (E.C.) Take 81 mg by mouth daily. 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 Gender Identity Not on file Sexual Orientation Not on file Plan of Treatment Health Maintenance Due Date Last Done Comments DTAP/TDAP/TD VACCINES (1 - Tdap) 1997 HEPATITIS B VACCINES (1 of 3 - 19+ 3-dose series) 1997 HPV/Cotest (21-29) 1999 CERVICAL CANCER SCREENING 2008 HPV/Cotest (30-65) 2008 PAP SMEAR 2008 BREAST CANCER SCREENING 2018 COLORECTAL SCREENING 2023 Colorectal Cancer Screening 2023 FIT-DNA Q 3 years 2023 FIT/FOBT Q 1 year 2023 Flex Sig/CT Colonography Q 5 years 2023 INFLUENZA VACCINE (#1) 2025 HPV VACCINES Aged Out No longer eligi ble based on patient's age to complete this topic Insurance MEDICAID [facility] [facility]
--- OUTSIDE RECORDS SUMMARY | 2025-05-08 17:32 | XMS_ITS | Clinical Summary ---
Author Organization [facility] Address [address] 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 02/01/2017 Active ascorbic acid, vitamin C, (VITAMIN C) 500 mg tablet Take 500 mg by mouth daily. 02/01/2017 Active venlafaxine (EFFEXOR) 75 mg tablet Take 75 mg by mouth 3 times daily. 02/01/2017 Active estradioL (ESTRACE) 1 mg tablet Take 1 mg by mouth daily. 02/01/2017 Active oxybutynin chloride (DITROPAN XL) 10 mg Extended Release 24 hour tablet Take 10 mg by mouth daily. 02/01/2017 Active lisinopriL (PRINIVIL) 2.5 mg tablet Take 2.5 mg by mouth daily. 02/01/2017 Active atorvastatin (LIPITOR) 10 mg tablet Take 10 mg by mouth late in the day. 02/01/2017 Active propranoloL (INDERAL) 80 mg tablet Take 80 mg by mouth 3 times daily. 02/01/2017 Active ferrous sulfate 325 mg (65 mg iron) tablet Take 325 mg by mouth daily. 02/01/2017 Active sennosides-docus ate sodium (SENNA-S) 8.6-50 mg tablet Take 1 Tablet by mouth daily. 02/01/2017 Active dexAMETHasone (DECADRON) 6 mg Tablet Take 6 mg by mouth daily. Active diclofenac potassium (CATAFLAM) 50 mg Tablet Take 50 mg by mouth 2 times daily as needed. Active Active Problems Problem Noted Date Diagnosed Date Sensorineural hearing loss (SNHL), bilateral 03/2021 Dental caries 02/14/2017 Encounters Date Type Department Care Team Description 04/29/2025 External Device Data [facility] ABSTRACTION Provider, Abstract 04/29/2025 External Device Data [facility] ABSTRACTION Provider, Abstract 04/23/2025 External Device Data [facility] ABSTRACTION Provider, Abstract 04/22/2025 External Device Data [facility] ABSTRACTION Provider, Abstract 04/15/2025 External Device Data [facility] ABSTRACTION Provider, Abstract 04/15/2025 External Device Data [facility] ABSTRACTION Provider, Abstract 04/02/2025 External Device Data [facility] ABSTRACTION Provider, Abstract 03/12/2025 External Device Data [facility] ABSTRACTION Provider, Abstract 03/12/2025 External Device Data [facility] ABSTRACTION Provider, Abstract 03/12/2025 External Device Data [facility] ABSTRACTION Provider, Abstract 02/12/2025 External Device Data ST[facility] ABSTRACTION Provider, Abstract from Last 3 Months Social History Tobacco Use Types Packs/Day Years Used Date Smoking Tobacco: Every Day Cigarettes Smokeless Tobacco: Never Tobacco Cessation:Ready to Q uit: Not Asked; Counseling Given: Not Answered Alcohol Use Standard Drinks/Week Comments Never 0 (1 standard drink = 0.6 oz pur e alcohol) Feeling Safe Answer Date Recorded Are you in a relationship wi th someone who hurts you emotionally and/or physically? 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 Gender Identity Not on file Sexual Orientation Not on file Last Filed Vital Signs Vital Sign Reading Time Taken Comments Blood Pressure 120/97 11/05/2024 10:30 PM CDT Pulse 76 11/05/2024 10:30 PM CDT Temperature 36.8 C (98.3 F) 11/05/2024 8:47 PM CDT Respiratory Rate 17 11/05/2024 10:30 PM CDT Oxygen Saturation 95% 11/05/2024 10:30 PM CDT Inhaled Oxygen Concentration - - Weight 116.1 kg (256 lb) 11/05/2024 8:47 PM CDT Height 157.5 cm (5' 2 ) 11/05/2024 8:47 PM CDT Body Mass Index 46.82 11/05/2024 8:47 PM CDT Plan of Treatment Health Maintenance Due Date Last Done Comments Pre-Diabetes and Diabetes Screening 1978 DTAP/TDAP/TD VACCINES (6 - Tdap) 1989 01/26/1983, 03/28/1980, 01/26/1979, Additional history exists HEPATITIS B VACCINES (2 of 3 - 19+ 3-dose series) 01/15/1998 12/18/1997 HPV/Cotest (21-29) 1999 CERVICAL CANCER SCREENING 2008 [...] to complete this topic [place] [facility]
--- OUTSIDE RECORDS SUMMARY | 2025-05-08 17:32 | XMS_ITS | Encounter Summary ---
Author Organization [facility] Address [address] [place] [address] Care Team Providers Care Inventory Control Specialist Name Role Phone Unavailable Primary Care Provider Unavailabl e Encounter Details Date Type Department Care Team (Late st Contact Info) Description 02/01/2017 Ancillary Orders [facility] Oral and Maxillo Surgery- [place] [address] [facility] [address] [place] [id number] Maged Steele, Joel Ramirez, TANG NO ADDRESS ON FILE Disturbance, tooth, eruption Social History Tobacco Use Types Packs/Day Years Used Date Smoking Tobacco: Never Assessed Comments Unknown Sex and Gender Information Value Date Recorded Sex Assigned at Not on file 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
[2025-05-08 17:34] VITALS: BP 122/80; PULSE 78; RESP 17; TEMP 36.7; O2SAT 97; BMI 46.0
--- NOTE | 2025-05-08 18:15 | USR_ITS ---
PROCEDURE INFORMATION: Exam: US Duplex Left Lower Extremity Arteries Or Arterial Bypass Grafts Exam date and time: 05/08/2025 6:54 PM Age: 44 years old Clinical indication: Pain; Other: Numbness from left knee to foot; Leg, lower; Additional info: Leg pain, was cold earlier TECHNIQUE: Imaging protocol: Left Real-time duplex scan of the arteries or arterial bypass grafts of the left lower extremity with 2-D wynn scale, color Doppler flow and spectral waveform analysis. Images documented and saved. COMPARISON: MR ankle LT wo con* [id number] 03/31/2023 11:19 AM FINDINGS: Left common femoral artery: No occlusion or significant stenosis. Normal waveform. Peak systolic velocity 113 cm/sec. Left superficial femoral artery: No occlusion or significant stenosis. Normal waveform. Peak systolic velocity 101 cm/sec proximally and in the mid artery and 61 cm/sec distally. Left popliteal artery: No occlusion or significant stenosis. Normal waveform. Peak systolic velocity 86 cm/sec. Left calf/foot arteries: No occlusion or significant stenosis in the visualized arteries. Normal waveforms. Dorsalis pedis artery is patent. Other findings: Left AILYN: 0.90. US/[place] [id number] IMPRESSION: 1. Patent lower extremity arteries with normal waveforms. 2. Left AILYN 0.90, suggestive of [id number] peripheral arterial disease.
--- NOTE | 2025-05-08 18:16 | W.ED.EXTPRO ---
HPI - Extremity Problem General: Chief complaint: Extremity Problem,Nontraumatic Stated complaint: L Leg going numb Time Seen by Provider: 05/08/25 18:13 History of Present Illness: 44-year-old female who with a history of depression hypothyroidism seizures constipation, hypertension, diabetes and COPD who presents to the emergency room with left leg numbness and coldness that is resolving. Says she took a nap and when she woke up and felt like it was swelling and getting bigger and tighter. On exam slightly cooler possibly good pulses. No evidence of clot or swelling. Related Data Home Medications ?Medication ?Instructions ?Recorded ?Confirmed docusate sodium 100 mg capsule 200 mg PO BID 03/23/21 04/09/25 ascorbic acid (vitamin C) 500 mg 500 mg PO BID 08/29/22 04/09/25 tablet (Vitamin C) cholecalciferol (vitamin D3) 25 25 mcg PO DAILY 06/19/24 04/09/25 mcg (1,000 unit) capsule Previous Rx's ?Medication ?Instructions ?Recorded hydrocortisone 2.5 % topical cream 1 applic AL DAILY PRN hemorrhoids 07/05/23 with perineal applicator #30 grams (Anusol-HC) estradiol 2 mg tablet 2 mg PO DAILY #90 tabs 06/11/24 atorvastatin 10 mg tablet See Rx Instructions .Route 06/19/24 .COMPLEX #90 tabs hydrocortisone 1 % topical cream 1 applic topical TID PRN skin 06/19/24 irritation 2 weeks #28.35 grams levothyroxine 50 mcg tablet 50 mcg PO DAILY #90 tabs 10/21/24 polyethylene glycol 3350 17 34 g PO DAILY #510 grams 10/21/24 gram/dose oral powder (Miralax) ondansetron 8 mg disintegrating 8 mg PO Q6H #14 tabs 10/27/24 tablet estradiol 0.01% (0.1 mg/gram) See Rx Instructions .Route 11/13/24 vaginal cream .COMPLEX #43 grams propranolol 10 mg tablet 10 mg PO BID #60 tabs 11/28/24 allopurinol 100 mg tablet 100 mg PO DAILY #90 tabs 02/17/25 colchicine 0.6 mg tablet See Rx Instructions PO DAILY #20 02/17/25 tabs famotidine 20 mg tablet (Pepcid AC) 20 mg PO DAILY PRN acid reflux #60 02/17/25 tabs oxybutynin chloride 5 mg tablet 5 mg PO BID #60 tabs 02/18/25 levetiracetam 250 mg tablet See Rx Instructions .Route 02/19/25 .COMPLEX #360 tabs lisinopril 2.5 mg tablet See Rx Instructions .Route 03/19/25 .COMPLEX #90 tabs cephalexin 500 mg capsule 500 mg PO TID 7 days #21 caps 04/09/25 mupirocin 2 % topical ointment 1 applic topical TID 7 days #15 04/09/25 (Centany) grams Allergies Allergy/AdvReac Type Severity Reaction Status Date / Time ciprofloxacin (From Cipro) Allergy Severe ALGY-Hives Verified 04/09/25 10:59 magnesium oxide Allergy Severe ALGY-Hives Verified 04/09/25 10:59 morphine Allergy Severe ADR-Seizure Verified 04/09/25 10:59 Penicillins Allergy Severe ALGY-Rash Verified 04/09/25 10:59 Sulfa (Sulfonamide Allergy Severe ALGY-Rash Verified 04/09/25 10:59 Antibiotics) sulfabenzamide Allergy Severe ALGY-Rash Verified 04/09/25 10:59 sulfamethoxazole (From Allergy Severe ALGY-Hives Verified 04/09/25 10:59 Bactrim) tizanidine Allergy Severe ADV-Weaknes Verified 04/09/25 10:59 s trimethoprim (From Bactrim) Allergy Severe ALGY-Rash Verified 04/09/25 10:59 Review of Systems Narrative: Constitutional symptoms: Negative except as documented in HPI. Skin symptoms: Negative except as documented in HPI. Eye symptoms: Negative except as documented in HPI. ENMT symptoms: Negative except as documented in HPI. Respiratory symptoms: Negative except as documented in HPI. Cardiovascular symptoms: Negative except as documented in HPI. Gastrointestinal symptoms: Negative except as documented in HPI. Genitourinary symptoms: Negative except as documented in HPI. Musculoskeletal symptoms: Negative except as documented in HPI. Neurologic symptoms: Negative except as documented in HPI. Psychiatric symptoms: Negative except as documented in HPI. Endocrine symptoms: Negative except as documented in HPI. PFSH ED PFSH: Medical History (Updated 05/08/25 @ 19:52 by Blanca Billy MD) Nicotine dependence, cigarettes, uncomplicated Bronson thyroiditis Tobacco use disorder Dependent edema Insomnia Major depressive disorder, recurrent episode, moderate with anxious distress Mild intellectual disabilities Generalized anxiety disorder Psychiatric care Functional neurological symptom disorder with attacks or seizures Family history of breast cancer in first degree relative Menopausal symptoms Chronic constipation Mixed incontinence Hypertension Type 2 diabetes mellitus GERD (gastroesophageal reflux disease) COPD (chronic obstructive pulmonary disease) Surgical History S/P ureteral stent placement History of anterior colporrhaphy (~04/07/21) 04/07/2021 - Anterior colporrhaphy with allograft, midurethral single incision sling, posterior colporrhaphy with cystoscopy at [place], [place] by Dr. Salazar. Hx of tonsillectomy Hx of section Hx of dilation and curettage of uterus Hx of tubal ligation History of appendectomy (~02/18/10) Hx of hysterectomy (~09/22/11) CARLYLE/BSO for irregular menses. [facility] [place], [place]. Benign pathology Family History Mother Diabetes Breast cancer uncertain age of dx Father , IN HIS LATE 60'S Diabetes Sister Diabetes Uterine cancer dx age unknown Grandmother Hypertension Maternal Hypercholesteremia Maternal Denies family history of Colon cancer Ovarian cancer Heart disease Thyroid disease Stroke Social History Smoking and tobacco/nicotine status: never used tobacco/nicotine Alcohol intake: never Substance/Drug Use: never Marital status: Life Partner Current occupational status: disabled Female Reproductive History: Spontaneous abortions: No Physical Exam Narrative: EXAM NARRATIVE: General: Alert, no acute distress. Skin: Warm, dry. Head: Normocephalic, atraumatic. Neck: Supple, trachea midline. Eye: Extraocular movements are intact. Ears, nose, mouth and throat: mucosa moist. Cardiovascular: Regular, Normal peripheral perfusion. Respiratory: Lungs are clear to auscultation, respirations are non-labored, breath sounds are equal, Symmetrical chest wall expansion. Gastrointestinal: Soft, Nontender, Non distended Musculoskeletal: Normal ROM, no deformity. Neurological: Alert and oriented, No focal neurological deficit observed. Psychiatric: Cooperative, appropriate mood & affect. Course Vital Signs: Vital signs: Vital Signs Temperature 98.0 F 05/08/25 17:34 Pulse Rate 105 H 05/08/25 18:29 Respiratory Rate 17 05/08/25 17:34 Blood Pressure 132/76 05/08/25 18:29 Pulse Oximetry 99 05/08/25 18:29 Oxygen Delivery Me thod Room Air 05/08/25 18:29 MDM - Extremity (Nontraumatic) Medical Decision Making Medical decision making: Differential diagnosis including but not limited to and based on the above HPI, review of systems and physical exam: With complaint of pain/numbness and coldness I will rule out arterial occlusion with an ultrasound. Orders placed to evaluate differential diagnosis based on the above differential, HPI and physical exam Ultrasound arterial: Normal. This was reviewed and interpreted by myself the emergency room physician. I also reviewed the radiology report. Assessment and plan: Leg pain - Discharged home - Discussed plan with patient. Answered any questions. - Evaluation and treatment of this problem were appropriate in the emergency setting. Lab Data Radiology Impressions Duplex Scan Lower Extremity Artery 05/08/25 18:15 IMPRESSION: 1. Patent lower extremity arteries with normal waveforms. 2. Left AILYN 0.90, suggestive of [id number] peripheral arterial disease. All radiology interpretation(s) finalized by discharge Discharge Plan Discharge Patient Disposition: Home Clinical Impression: Acute leg pain Condition: Stable Prescriptions: No Action docusate sodium 100 mg capsule 200 mg PO BID estradiol 2 mg tablet 2 mg PO DAILY Qty: 90 3RF polyethylene glycol 3350 [Miralax] 17 gram/dose powder 34 g PO DAILY Qty: 510 0RF hydrocortisone [Anusol-HC] 2.5 % cream with perineal applicator 1 applic AL DAILY PRN (Reason: hemorrhoids) Qty: 30 1RF Rx Instructions: May use 2x a day for one week or until symptoms improve. levetiracetam 250 mg tablet See Rx Instructions .ROUTE .COMPLEX Qty: 360 3RF Dose Instruction: TAKE 2 TABLETS BY MOUTH ONCE DAILY IN THE MORNING AND 2 ONCE DAILY IN THE EVENING Rx Instructions: TAKE 2 TABLETS BY MOUTH ONCE DAILY IN THE MORNING AND 2 ONCE DAILY IN THE EVENING cholecalciferol (vitamin D3) 25 mcg (1,000 unit) capsule 25 mcg PO DAILY atorvastatin 10 mg tablet See Rx Instructions .ROUTE .COMPLEX Qty: 90 3RF Dose Instruction: Take 1 tablet by mouth once daily Rx Instructions: Take 1 tablet by mouth once daily hydrocortisone 1 % cream 1 applic topical TID PRN (Reason: skin irritation) 14 Days Qty: 28.35 0RF colchicine 0.6 mg tablet See Rx Instructions PO DAILY Qty: 20 2RF Rx Instructions: take 2 tablets on day one, then one tablet daily x 4 days allopurinol 100 mg tablet 100 mg PO DAILY Qty: 90 1RF famotidine [Pepcid AC] 20 mg tablet 20 mg PO DAILY PRN (Reason: acid reflux) Qty: 60 1RF cephalexin 500 mg capsule 500 mg PO TID 7 Days Qty: 21 0RF mupirocin [Centany] 2 % ointment 1 applic topical TID 7 Days Qty: 15 0RF levothyroxine 50 mcg tablet 50 mcg PO DAILY Qty: 90 1RF estradiol 0.01 % (0.1 mg/gram) cream See Rx Instructions .ROUTE .COMPLEX Qty: 43 3RF Dose Instruction: APPLY 1 GRAM VAGINALLY 2-3 TIMES A WEEK, SPACE OUT DOSES Rx Instructions: APPLY 1 GRAM VAGINALLY 2-3 TIMES A WEEK, SPACE OUT DOSES propranolol 10 mg tablet 10 mg PO BID Qty: 60 6RF Rx Instructions: Take one tablet twice per day oxybutynin chloride 5 mg tablet 5 mg PO BID Qty: 60 5RF lisinopril 2.5 mg tablet See Rx Instructions .ROUTE .COMPLEX Qty: 90 1RF Dose Instruction: Take 1 tablet by mouth once daily Rx Instructions: Take 1 tablet by mouth once daily ondansetron 8 mg tablet,disintegrating 8 mg PO Q6H Qty: 14 0RF Rx Instructions: Take 1/2-1 tab every 6 hours as needed for nausea and vomiting ascorbic acid (vitamin C) [Vitamin C] 500 mg Tablet 500 mg PO BID Discharge Orders: Discharge ED (Routine); Ordered 05/08/25 Ordered By: Blanca Billy Referrals: Darío Sawyer MD [Primary Care Provider, Family Practice] Discharge Diet: Usual diet Discharge Activity: Increase activity as tolerated Patient Instructions: Opioid Safety, Pain Management, Patient Portal & Joshua Instructions Activity Restrictions/Additional Instructions: Thank you for choosing [facility] for your healthcare needs today. You have been screened and evaluated and felt safe for discharge. Health conditions do change or evolve sometimes and as such it is important that you follow up with your Primary Doctor to be re checked, 3-5 days is a general good time frame for follow up. You are always welcome to return to the ED for re assessment if your symptoms are worsening or you have new concerns Print Language: Tongan Coding Level of Care Code ED Body Bumper for Robert Bonilla
[2025-05-08 18:29] VITALS: BP 132/76; PULSE 105; O2SAT 99
== END 2025-05-08 19:58 | disposition home or self-care (01) ==
PROVIDERS: Emergency Provider Emergency Medicine; PCP Family Medicine
DX: M79.604 Pain in right leg (principal); J44.9 Chronic obstructive pulmonary disease, unspecified; E11.9 Type 2 diabetes mellitus without complications; I10 Essential (primary) hypertension
CPT/HCPCS: 93926; 99284

== ENCOUNTER → 2025-05-21 15:53 | Outpatient (BNVA) | payer MEDICARE, MEDICAID, SELFPAY | PROVIDERS: PCP Family Medicine; Visit Provider Family Medicine | DX: E06.3 Autoimmune thyroiditis (principal); Z86.39 Personal history of other endocrine, nutritional and metabolic disease; E11.9 Type 2 diabetes mellitus without complications | CPT/HCPCS: 80053; 80061; 83036; 84439; 84443; 85025; 86376 ==

== ENCOUNTER → 2025-06-17 15:56 | Outpatient (BNVA) | payer OTHER, MEDICAID, SELFPAY | PROVIDERS: PCP Family Medicine; Visit Provider Nurse Practitioner Women's Health | DX: E66.01 Morbid (severe) obesity due to excess calories (principal) | CPT/HCPCS: 82306 ==

== ENCOUNTER 2025-06-26 14:36 | Outpatient (CLI) | payer MEDICARE, MEDICAID, SELFPAY ==
--- NOTE | 2025-06-26 15:00 | XR_ITS ---
WS: [id number] DEXA (DUAL ENERGY X-RAY ABSORPTIOMETRY) Bone mineral density was performed using a [employer] machine. HISTORY: N95.1 - Menopausal and female climacteric states COMPARISON: None available. Lumbar spine BMD (L1-L4): 1.309 g/cm2 T score: 1.1 Z score: 0.1 Total hip BMD: Left: 1.063 g/cm2. T score: 0.4 Z score: 0.0 Right: 1.022 g/cm2. T score: 0.1 Z score: -0.4 10 year probability of a major osteoporotic fracture is 4.9%. XR/XR DEXA axial skeleton* 08808 IMPRESSION: NORMAL BONE MINERAL DENSITY based upon the WHO classification for females.
== END 2025-06-26 14:37 | disposition home or self-care (01) ==
PROVIDERS: PCP Family Medicine; Visit Provider Nurse Practitioner Women's Health
DX: Z13.820 Encounter for screening for osteoporosis (principal); Z78.0 Asymptomatic menopausal state
CPT/HCPCS: 77080